=== PATIENT | male | born 1930 | race Caucasian/White ===

== ENCOUNTER 2017-04-03 17:48 | Inpatient (IN) | payer MEDICARE, OTHER ==
[2017-04-03] MEDS ORDERED: Aspirin Low Dose CHEW TAB* 81 MG PO ONE (18:08)
[2017-04-03] MEDS ORDERED: Nitroglycerin TAB 0.4 MG* 0.4 MG TAB SL ONE (18:19)
[2017-04-03] MEDS ORDERED: Aspirin TAB* 325 MG PO ONE (18:19)
[2017-04-03] MEDS ORDERED: Aspirin Low Dose CHEW TAB* 81 MG ONE (18:22)
[2017-04-03 18:48] LABS: ABS Basophils 0 10^3/ul (0-0.2); ABS Eosinophils 0.1 10^3/ul (0-0.6); ABS Lymphocytes 0.6 10^3/ul (1.0-4.8); ABS Monocytes 0.9 10^3/ul (0-0.8); ABS Neutrophils 4.1 10^3/ul (1.5-7.7); ABS Nucleated RBC 0 10^3/ul; Hematocrit 33 % (42-52); Lymphocyte % 11.3 % (25-47); Mean Corpuscular HGB Conc 33 g/dl (31-36); Mean Corpuscular Hemoglobin 31 pg (27-31); Mean Corpuscular Volume 94 fL (80-94); Mean Platelet Volume 8 um3 (7.4-10.4); Nucleated Red Blood Cells % 0; Platelet Count 226 10^3/ul (150-450); Red Blood Count 3.54 10^6/ul (4.0-5.4); Red Cell Distribution Width 18 % (10.5-15); White Blood Count 5.7 10^3/ul (3.5-10.8)
--- NOTE | 2017-04-03 18:56 | RAD ---
INDICATION: Chest pain COMPARISON: Chest x-ray March 09, 2016 TECHNIQUE: An AP portable view obtained at 1841 hours is submitted. FINDINGS: Bones/Soft Tissues: There are no acute bony findings. Cardiomediastinal: The cardiomediastinal silhouette is normal. Lungs: There are no infiltrates. Pleura: There are no pleural effusions. Other: None IMPRESSION: NO ACTIVE DISEASE.
[2017-04-03] MEDS ORDERED: Iohexol 350* (CONTRAST) 500 ML MDV IV ONE (19:46)
[2017-04-03] MEDS ORDERED: Cephalexin CAP* 500 MG PO ONE (19:49)
[2017-04-03] MEDS ORDERED: Sulfamethox/Trimethoprim DS 800/160* TAB PO ONE (19:49)
--- NOTE | 2017-04-03 20:17 | RAD ---
INDICATION: Chest pain. Short of breath. Evaluate for pulmonary embolus. COMPARISON: Chest x-ray same date CT abdomen pelvis March 09, 2016.; CTA chest/abdomen/pelvis October 24, 2009 TECHNIQUE: Axial source images were obtained from the thoracic inlet to the hemidiaphragms following administration of [address] angiographic technique was utilized. Coronal and sagittal reconstructed images were acquired. CHEST FINDINGS: Neck/thyroid: The visualized neck to include the thyroid appear normal. Chest wall: There are no acute abnormalities of the bony thorax or chest wall. There are old left 10th rib fractures. There are spondylitic changes of the thoracic spine with thoracic spine straightening. There is deformity of the lumbar spine with focal kyphosis represent a previously documented finding. There is no supraclavicular, infraclavicular, or axillary lymphadenopathy. Lungs : There are no pulmonary parenchymal masses or infiltrates. The pulmonary interstitium appears normal. There are no endobronchial lesions. Cardiomediastinal structures: There is no CT evidence of acute pulmonary embolic disease. The heart is normal in size. There is no pericardial effusion. There is no evidence of aortic aneurysm or dissection. There is no mediastinal or hilar adenopathy. The esophagus appears normal. Pleura : There are no pleural-based masses or effusions. Other: There are multiple gallstones. This represents a known finding. IMPRESSION: NO CT EVIDENCE OF ACUTE PULMONARY EMBOLIC DISEASE. LUNGS CLEAR. CHOLELITHIASIS.
[2017-04-03] MEDS ORDERED: Zolpidem TAB* 5 MG PO PRN (20:29)
[2017-04-03] MEDS ORDERED: clonazePAM TAB(*) 0.5 MG PO PRN (20:29)
[2017-04-03] MEDS ORDERED: Senna TAB PO PRN (20:29)
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
[2017-04-03] MEDS: Heparin VIAL(*) 5000 UNITS/ML VIAL (FIVE THOUSAND) SUBCUT SCH (22:56)
[2017-04-03] MEDS: Senna TAB PO SCH (22:56)
[2017-04-03] MEDS: Docusate CAP* 100 MG PO SCH (22:56)
[2017-04-03 23:04] LABS: Urine Appearance Clear; Urine Blood Negative (Negative); Urine Color Straw; Urine Ketones Negative (Negative); Urine Protein Negative (Negative); Urine Specific Gravity 1.016 (1.010-1.030); Urine Urobilinogen Negative (Negative)
[2017-04-03] MEDS: Psyllium PAK PO SCH (23:25)
[2017-04-03] MEDS: HYDROcodone/ACETAMIN 5-325 MG* 1 TAB PO PRN (23:25)
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
[2017-04-04] MEDS ORDERED: Zolpidem TAB* 5 MG PO ONE (02:10)
[2017-04-04] MEDS ORDERED: Morphine INJ* 4 MG/ML 1 ML CARPUJECT IV ONE (02:12)
[2017-04-04] MEDS: HYDROcodone/ACETAMIN 5-325 MG* 1 TAB PO PRN ×3 (03:46→20:51)
[2017-04-04] MEDS: Heparin VIAL(*) 5000 UNITS/ML VIAL (FIVE THOUSAND) SUBCUT SCH ×3 (06:44→20:52)
[2017-04-04] MEDS: Aspirin EC Low Dose* 81 MG TAB.EC PO SCH (08:03)
[2017-04-04] MEDS: Docusate CAP* 100 MG PO SCH ×2 (08:03→20:51)
[2017-04-04] MEDS: Psyllium PAK PO SCH ×2 (08:04→20:51)
[2017-04-04] MEDS: Atorvastatin* 10 MG TAB PO SCH (08:04)
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
[2017-04-04] MEDS ORDERED: Zolpidem TAB* 10 MG PO PRN (13:53)
[2017-04-04] MEDS: Morphine INJ* 4 MG/ML 1 ML CARPUJECT IV PRN ×2 (14:46→22:22)
[2017-04-04] MEDS: Senna TAB PO SCH (20:52)
[2017-04-05] MEDS: Morphine INJ* 4 MG/ML 1 ML CARPUJECT IV PRN (04:38)
[2017-04-05] MEDS: Heparin VIAL(*) 5000 UNITS/ML VIAL (FIVE THOUSAND) SUBCUT SCH (05:49)
--- NOTE | 2017-04-05 07:18 | DS ---
CC: Dr. Alis Lema * DISCHARGE SUMMARY: DATE OF ADMISSION: 04/03/17 DATE OF DISCHARGE: 04/05/17 ATTENDING PHYSICIAN: Dr. Scarlett Lawrence* (dictated by Mikayla Nesbitt NP) PRIMARY CARE PROVIDER: Alis Lema MD PRIMARY DIAGNOSES: 1. Left upper quadrant abdominal pain, suspect secondary to subacute left 10th rib fracture. 2. Stage II pressure injury to the right buttock. SECONDARY DIAGNOSES: 1. History of coronary artery disease. 2. Chronic constipation. 3. Neuropathic pain. 4. Gastroesophageal reflux disease. STUDIES WHILE IN THE HOSPITAL: 1. Chest x-ray from 04/03/17, radiologist's impression: No active disease. 2. CTA from 04/03/17. Radiologist's impression: No CT evidence for acute pulmonary embolic disease. Lungs clear. Cholelithiasis. MEDICATIONS: Continued home medications: 1. Metamucil 1 capsule oral twice daily. 2. Senna 1 tablet oral daily at bedtime. 3. Colace 100 mg oral twice daily. 4. Aspirin 162 mg oral daily. 5. Hydrocodone/acetaminophen 10/325 one to two tablets oral twice daily as needed for pain. 6. Ambien 5 to 10 mg oral daily at bedtime as needed for sleep. 7. Clonazepam 0.5 mg oral twice daily as needed for pain. 8. Omeprazole 20 mg oral every other day. 9. Atorvastatin 5 mg oral daily. 10. Senna 1 tablet oral daily as needed for constipation. 11. Vitamin B12 100 mcg oral daily. 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 While in the emergency room, he had a chest x-ray showing no active disease in addition to CTA of his chest showing 10th left rib fracture and no other findings besides cholelithiasis. The patient had negative troponins. The patient had a SHANDA score of 2. But due to his history, the hospitalists were asked to evaluate the patient for admission. While in the hospital, the patient continued to have his troponins trended, they remained flat. He continued to intermittently have some left-sided discomfort that is suspected to be secondary to his 10th left rib fracture. Unfortunately, during his stay, he has developed worsening sciatic pain and was requiring IV morphine. It was felt best to give him 1 more day with plans to discharge him tomorrow once we made sure his pain was better controlled. It is also to note he was noted to have a right buttock stage II pressure injury with no foul smell, no drainage with what appears to be peeling skin around the wound. The patient has been encouraged to turn in position as he has poor sensation due to his previous spinal fracture. Dr. Bagley will be stable for discharge to home in the morning of 04/05/17. Vital signs are as follows: At the time of dictation, 98.3, heart rate 83, respiratory rate 16, O2 sat 100% on room air, blood pressure 126/71. 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 ACTIVITY: As tolerated. DIET: He will be on a heart healthy diet. As far as his stage II pressure injury to his right buttock, he has been encouraged to change position and use a barrier cream to the area and to keep it as clean and dry as possible. It does not look infected at this time and I do not feel that it needs any further antibiotics than what he had received while in the emergency room. As far as the patient's left upper quadrant pain, I suspect this is secondary to his subacute left 10th rib fracture. He will continue pain medications as he has at home. The patient has been asked to call Dr. Lema's office on Thursday to set up a followup appointment to be seen in the next week, especially for followup to make sure that his pressure ulcer is healing well. The patient has been asked to return to the emergency room for any chest pain, shortness of breath. This is a summarized report of a complex medical history and hospital stay. For further details, please see the entire medical record. TIME SPENT: Time for this discharge was approximately 50 minutes, greater than half of that was spent with the patient discussing discharge plans and instructions. CONDITION ON DISCHARGE: Stable. MIKAYLA SALAZAR, DELINEATOR [id number]/[facility] #: [id number] [facility] FACILITYCayden
[2017-04-05 07:22] VITALS: BP 153/85
[2017-04-05] MEDS ORDERED: Omeprazole CAP* 20 MG PO SCH (09:00)
[2017-04-05] MEDS: Docusate CAP* 100 MG PO SCH (09:16)
[2017-04-05] MEDS: Psyllium PAK PO SCH (09:16)
[2017-04-05] MEDS: Aspirin EC Low Dose* 81 MG TAB.EC PO SCH (09:16)
[2017-04-05] MEDS: Atorvastatin* 10 MG TAB PO SCH (09:16)
--- NOTE | 2017-04-05 10:37 | DCNOTE ---
Subjective Date of Service: 04/05/17 Interval History: Patient seen and examined at bedside. Reports improvement in pain. Dr. Bagley still expresses concern over his right buttock ulcer and states, "It never really gets better." He cannot see or feel back there; we discussed that he likely continues to reopen the wound secondary to pressure and shearing. Patient is willing to try protective dressing and plan for VNS referral for dressing changes and monitoring of wound. Denies other acute concerns, including fever/chills, SOB, n/v. Family History: Unchanged from Admission Social History: Unchanged from Admission Past Medical History: Unchanged from Admission Objective Active Medications: Hydrocodone Bitart/Acetaminophen (Tama 5-325 Tab*) 2 tab PO Q4H PRN PRN Reason: PAIN Last Admin: 04/04/17 20:51 Dose: 2 tab Aspirin (Aspirin Ec Low Dose*) 162 mg PO DAILY [facility] Last Admin: 04/05/17 09:16 Dose: 162 mg Atorvastatin Calcium (Lipitor*) 5 mg PO DAILY [facility] Last Admin: 04/05/17 09:16 Dose: 5 mg Clonazepam (Klonopin Tab(*)) 0.5 mg PO BID PRN PRN Reason: PAIN Docusate Sodium (Colace Cap*) 100 mg PO BID [facility] Last Admin: 04/05/17 09:16 Dose: 100 mg Heparin Sodium (Porcine) (Heparin Vial(*)) 5,000 units SUBCUT Q8HR [facility] Last Admin: 04/05/17 05:49 Dose: 5,000 units Morphine Sulfate (Morphine Inj (Syringe)*) 4 mg IV Q6H PRN PRN Reason: PAIN Last Admin: 04/05/17 04:38 Dose: 4 mg Omeprazole (Prilosec Cap*) 20 mg PO EVERY OTHER DAY [facility] Last Admin: 04/05/17 09:16 Dose: 20 mg Psyllium Hydrophilic Mucilloid (Metamucil Rob*) 1 pkt PO BID [facility] Last Admin: 04/05/17 09:16 Dose: 1 pkt Senna (Senokot Tab*) 1 tab PO BEDTIME [facility] Last Admin: 04/04/17 20:52 Dose: 1 tab Senna (Senokot Tab*) 1 tab PO DAILY PRN PRN Reason: CONSTIPATION Zolpidem Tartrate (Ambien Tab*) 10 mg PO BEDTIME PRN PRN Reason: SLEEP Last Admin: 04/04/17 22:32 Dose: 10 mg Vital Signs - 8 hr 04/05/17 04/05/17 04/05/17 03:51 04:37 04:38 Temperature 98.0 F Pulse Rate 78 Respiratory 20 17 18 Rate Blood Pressure 128/72 (mmHg) O2 Sat by Pulse 100 Oximetry 04/05/17 04/05/17 04/05/17 05:54 07:12 07:22 Temperature 97.9 F Pulse Rate 71 Respiratory 16 16 16 Rate Blood Pressure 153/85 (mmHg) O2 Sat by Pulse 100 Oximetry Oxygen Devices in Use Now: None Appearance: Elderly male, sitting up in bed, NAD Eyes: No Scleral Icterus Ears/Nose/Mouth/Throat: Clear Oropharnyx, Mucous Membranes Moist Neck: NL Appearance and Movements; NL JVP Respiratory: Symmetrical Chest Expansion and Respiratory Effort, Clear to Auscultation Cardiovascular: NL Sounds; No Murmurs; No JVD, RRR, No Edema Abdominal: NL Sounds; No Tenderness; No Distention Extremities: No Clubbing, Cyanosis Skin: - - right buttock stage 2 pressure ulcer Neurological: Alert and Oriented x 3, NL Muscle Strength and Tone Lines/Tubes/Other Access: Clean, Dry and Intact Peripheral IV Nutrition: Taking PO's Result Diagrams: 04/03/17 18:29 04/03/17 18:29 Diagnostic Imaging: Right Buttock Pressure Ulcer 04/04/2017 Assess/Plan/Problems-Billing Assessment: 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 - Patient Problems (1) Chest pain Code(s): R07.9 - CHEST PAIN, UNSPECIFIED Comment: - Pain is actually located at the left upper quadrant, near the 10th rib - Suspect this is secondary to a 10th rib fracture as a result of a fall a few weeks ago - Troponin 0.01, 0.01, 0.02 - Lipids WNL (2) Stage II pressure ulcer of buttock Code(s): L89.302 - PRESSURE ULCER OF UNSPECIFIED BUTTOCK, STAGE 2 Comment: - Suspect secondary to mositure and poor sensation d/t hx spinal fx - Turn and position - Continue protective cream if dressing not in place - Will trial protective dressing and have case management consult VNS for wound monitoring in order to promote better healing (3) CAD (coronary artery disease) Code(s): I25.10 - ATHSCL HEART DISEASE OF [place] CORONARY ARTERY W/O ANG PCTRS Comment: - Continue ASA and statin (4) GERD (gastroesophageal reflux disease) Code(s): K21.9 - GASTRO-ESOPHAGEAL REFLUX DISEASE WITHOUT ESOPHAGITIS Comment : - Continue omeprazole. (5) Neuropathic pain Comment: - Pain is improved. - Continue home clonazepam and PRN Tama (6) DVT prophylaxis Comment: SQ heparin (7) DNR (do not resuscitate) Status and Disposition: Inpatient. Discharge to home.
== END 2017-04-05 13:00 | disposition home or self-care (01) | DRG 206 ==
LOC: ED 17:48 → MEDTELE 20:28 → OBSVTOIN 04-04 15:45
PROVIDERS: ADMIT Hospitalist; ATTEND Internal Medicine
DX: S22.32XA Fracture of one rib, left side, initial encounter for closed fracture (principal); L89.312 Pressure ulcer of right buttock, stage 2; G62.9 Polyneuropathy, unspecified; G31.89 Other specified degenerative diseases of nervous system; N31.9 Neuromuscular dysfunction of bladder, unspecified; M48.02 Spinal stenosis, cervical region; W19.XXXA Unspecified fall, initial encounter; Y92.009 Unspecified place in unspecified non-institutional (private) residence as the place of occurrence of the external cause; I25.10 Atherosclerotic heart disease of native coronary artery without angina pectoris; K59.09 Other constipation; K21.9 Gastro-esophageal reflux disease without esophagitis; R19.8 Other specified symptoms and signs involving the digestive system and abdomen; D50.9 Iron deficiency anemia, unspecified; D51.0 Vitamin B12 deficiency anemia due to intrinsic factor deficiency; Z85.46 Personal history of malignant neoplasm of prostate; Z66 Do not resuscitate; Z79.1 Long term (current) use of non-steroidal anti-inflammatories (NSAID); Z79.82 Long term (current) use of aspirin; Z79.899 Other long term (current) drug therapy; Z88.1 Allergy status to other antibiotic agents; Z88.8 Allergy status to other drugs, medicaments and biological substances; Z91.048 Other nonmedicinal substance allergy status; Z80.42 Family history of malignant neoplasm of prostate; Z82.3 Family history of stroke; Z82.49 Family history of ischemic heart disease and other diseases of the circulatory system; Z87.891 Personal history of nicotine dependence; R07.9 Chest pain, unspecified; Z95.5 Presence of coronary angioplasty implant and graft
CPT/HCPCS: 36415; 71045; 71275; 80053; 80061; 81003; 83605; 83690; 84484; 85025; 93005; A9270-GY; J1644; J2270; Q9967

== ENCOUNTER 2017-05-20 17:58 | Inpatient (IN) | payer MEDICARE, OTHER ==
[2017-05-20] MEDS ORDERED: NS 0.9% 1000 ML*IV.FLUID IV ONE (19:07)
--- NOTE | 2017-05-20 19:28 | RAD ---
INDICATION: Cough and weakness COMPARISON: Chest x-ray April 03, 2017 TECHNIQUE: An AP portable view obtained at 1919 hours is submitted. FINDINGS: Bones/Soft Tissues: There are no acute bony findings. Cardiomediastinal: The cardiomediastinal silhouette is normal. Lungs: There is new infiltrate in the medial right lung base. There is mild atelectasis or scarring left lung base with minor elevation the left hemidiaphragm. Pleura: No significant effusion. Other: None IMPRESSION: RIGHT BASAL INFILTRATE. SUGGEST FOLLOW-UP
[2017-05-20] MEDS ORDERED: Acetaminophen TAB* 325 MG PO ONE (19:34)
[2017-05-20 20:25] LABS: INR 1.12 (0.77-1.02)
[2017-05-20 20:30] LABS: EGFR Non-African American 59.4 (>60)
[2017-05-20] MEDS ORDERED: cefTRIAXone(*) 1 GM in NS 0.9% 50 ML* 50 ML IVPB ONE (20:51)
[2017-05-20 20:58] LABS: Hematocrit 31 % (42-52); Hemoglobin 10.2 g/dl (14.0-18.0); Mean Corpuscular HGB Conc 33 g/dl (31-36); Mean Corpuscular Hemoglobin 30 pg (27-31); Mean Corpuscular Volume 91 fL (80-94); Mean Platelet Volume 7 um3 (7.4-10.4); Platelet Count 477 10^3/ul (150-450); Red Blood Count 3.42 10^6/ul (4.0-5.4); Red Cell Distribution Width 19 % (10.5-15); White Blood Count 23.6 10^3/ul (3.5-10.8)
[2017-05-20] MEDS ORDERED: cefTRIAXone(*) 1 GM ADVAN/BAG ONE (21:03)
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
[2017-05-20 21:29] LABS: ABS Basophils 0.1 10^3/ul (0-0.2); ABS Eosinophils 0 10^3/ul (0-0.6); ABS Lymphocytes 0.6 10^3/ul (1.0-4.8); ABS Monocytes 2.1 10^3/ul (0-0.8); ABS Neutrophils 20.9 10^3/ul (1.5-7.7); ABS Nucleated RBC 0 10^3/ul; Eosinophil % 0 % (0-6); Lymphocyte % 2.3 % (25-47); Nucleated Red Blood Cells % 0
[2017-05-20] MEDS ORDERED: Albuterol 2.5 MG/3 ML NEB.SOL* (0.083%) INH PRN (22:42)
[2017-05-21] MEDS ORDERED: predniSONE TAB* 50 MG PO SCH (00:15)
[2017-05-21] MEDS: oxyCODONE TAB* 5 MG TAB PO PRN ×3 (00:44→20:51)
[2017-05-21] MEDS: Polyethylene Glycol 3350* 17 GM PACKET PO PRN ×2 (00:44→14:23)
[2017-05-21] MEDS: Levofloxacin 750 MG IVPREMIX(* 750 MG/150 ML BAG IVPB SCH (00:44)
[2017-05-21] MEDS: NS 0.9% 1000 ML* 1,000 ML IV SCH ×2 (00:45→16:01)
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
[2017-05-21] MEDS: Heparin VIAL(*) 5000 UNITS/ML VIAL (FIVE THOUSAND) SUBCUT SCH ×3 (06:04→20:52)
[2017-05-21 06:34] LABS: EGFR Non-African American 83.6 (>60)
[2017-05-21 06:55] LABS: Urine Appearance Cloudy; Urine Blood Negative (Negative); Urine Color Yellow; Urine Ketones Negative (Negative); Urine Protein 1+(30 mg/dL) (Negative); Urine Specific Gravity 1.027 (1.010-1.030); Urine Urobilinogen Negative (Negative)
[2017-05-21 07:24] LABS: Hematocrit 31 % (42-52); Hemoglobin 10.1 g/dl (14.0-18.0); Mean Corpuscular HGB Conc 33 g/dl (31-36); Mean Corpuscular Hemoglobin 30 pg (27-31); Mean Corpuscular Volume 90 fL (80-94); Red Blood Count 3.39 10^6/ul (4.0-5.4); Red Cell Distribution Width 19 % (10.5-15); White Blood Count 25.3 10^3/ul (3.5-10.8)
[2017-05-21 07:27] LABS: ABS Basophils 0 10^3/ul (0-0.2); ABS Eosinophils 0 10^3/ul (0-0.6); ABS Lymphocytes 0.2 10^3/ul (1.0-4.8); ABS Monocytes 0.5 10^3/ul (0-0.8); ABS Neutrophils 25.4 10^3/ul (1.5-7.7); ABS Nucleated RBC 0 10^3/ul; Eosinophil % 0 % (0-6); Lymphocyte % 0.9 % (25-47); Mean Platelet Volume 8 um3 (7.4-10.4); Nucleated Red Blood Cells % 0; Platelet Count 465 10^3/ul (150-450)
[2017-05-21] MEDS: clonazePAM TAB(*) 0.5 MG PO SCH ×3 (09:45→19:52)
[2017-05-21] MEDS: Acetaminophen TAB* 325 MG PO PRN ×3 (10:32→19:51)
[2017-05-21] MEDS: Docusate CAP* 100 MG PO SCH ×2 (10:32→19:52)
[2017-05-21] MEDS: Psyllium PAK PO SCH (10:33)
[2017-05-21] MEDS: Atorvastatin* 10 MG TAB PO SCH (10:33)
[2017-05-21] MEDS: Aspirin EC Low Dose* 81 MG TAB.EC PO SCH (10:33)
[2017-05-21] MEDS: guaiFENesin ER TAB 600 MG PO SCH ×2 (10:33→19:52)
--- NOTE | 2017-05-21 18:51 | PN ---
Subjective Date of Service: 05/21/17 Interval History: Patient seen and examined at bedside. Denies fever, chills, shortness of breath , chest discomfort, N/V/D. Pt states that he is feeling better today. Pt states that VNS has been caring for his pressure injury. NSG staff report low urine output, put he is also INC. urine, will continue to monitor. Verbal permission obtained from the patient to place a picture of his pressure injury in the chart. Family History: Unchanged from Admission Social History: Unchanged from Admission Past Medical History: Unchanged from Admission Objective Active Medications: Acetaminophen (Tylenol Tab*) 650 mg PO Q4H PRN Reason: FEVER/PAIN Albuterol (Ventolin 2.5 Mg/3 Ml Neb.Lisa*) 2.5 mg INH Q2H PRN Reason: SOB/ WHEEZING Aspirin (Aspirin Ec Low Dose*) 162 mg PO DAILY [facility] Atorvastatin Calcium (Lipitor*) 5 mg PO DAILY [facility] Clonazepam (Klonopin Tab(*)) 0.5 mg PO TID [facility] Docusate Sodium (Colace Cap*) 100 mg PO BID [facility] Guaifenesin (Mucinex*) 1,200 mg PO BID [facility] Heparin Sodium (Porcine) (Heparin Vial(*)) 5,000 units SUBCUT Q8HR [facility] Levofloxacin/Dextrose (Levaquin 750 Mg Ivpremix(*)) 750 mg in 150 mls @ 100 mls /hr IVPB Q48H [facility] Sodium Chloride (Ns 0.9% 1000 Ml*) 1,000 mls @ 125 mls/hr IV PER RATE [facility] Magnesium Hydroxide (Milk Of Magnesia Liq*) 30 ml PO BID PRN Reason: CONSTIPATION Omeprazole (Prilosec Cap*) 20 mg PO EVERY OTHER DAY [facility] Oxycodone HCl (Roxycodone Tab*) 10 mg PO Q4H PRN Reason: PAIN Polyethylene Glycol/Electrolytes (Miralax*) 17 gm PO DAILY PRN Reason: CONSTIPATION Psyllium Hydrophilic Mucilloid (Metamucil Rob*) 1 pkt PO DAILY [facility] Vital Signs - 8 hr 05/21/17 05/21/17 05/21/17 11:46 13:27 16:19 Temperature 97.6 F 98.5 F Pulse Rate 88 93 80 Respiratory 16 16 18 Rate Blood Pressure 102/51 101/55 (mmHg) O2 Sat by Pulse 98 95 100 Oximetry Oxygen Devices in Use Now: None Appearance: NAD, laying in bed Ears/Nose/Mouth/Throat: Mucous Membranes Moist Respiratory: Symmetrical Chest Expansion and Respiratory Effort, - - Right lower lobe with crackles Cardiovascular: NL Sounds; No Murmurs; No JVD, RRR Abdominal: NL Sounds; No Tenderness; No Distention Extremities: No Edema Skin: - - Stage 2-3 pressure injury to right buttocks, area surrounding is macerated. Skin is blanchable. Lower back also with an area of erythema that is blanchable Neurological: Alert and Oriented x 3 Lines/Tubes/Other Access: Clean, Dry and Intact Peripheral IV - site benign Nutrition: Taking PO's Result Diagrams: 05/21/17 05:48 05/21/17 05:48 Additional Lab and Data: Pressure injury to buttocks (right side of picture is towards Pt's head) Microbiology and Other Data: Microbiology 05/21/17 06:02 Legionella Urinary Antigen - Final Urine Negative Legionella Streptococcus pneumoniae Ag Screen - Final Negative S. 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 - Patient Problems (1) PNA (pneumonia) Code(s): J18.9 - PNEUMONIA, UNSPECIFIED ORGANISM SNOMED Code(s): 511489464 Comment: - Community acquired - Afebrile, continues to have leukocytosis - Urine antigens for legionella and S. pneum negative - Blood cultures, pending - Sputum culture, pending - Elevated CRP - Discontinue prednisone, Pt doesn't have wheezing - Continue Levaquin (renally dosed) (2) Weakness Code(s): R53.1 - WEAKNESS SNOMED Code(s): 83802067 Comment: - Suspect secondary to PNA - Pt reports frequent falls at home - Continue PT/OT (3) Physical deconditioning Code(s): R53.81 - OTHER MALAISE SNOMED Code(s): 18410166321494 Comment: - Suspect secondary to PNA - Continue PT/OT (4) Neurogenic bowel Code(s): K59.2 - NEUROGENIC BOWEL, NOT ELSEWHERE CLASSIFIED SNOMED Code(s): 390852707 Comment: - Continue fiber regimen, miralax, and MOM (5) Neurogenic bladder Code(s): N31.9 - NEUROMUSCULAR DYSFUNCTION OF BLADDER, UNSPECIFIED SNOMED Code (s): 950354180 Comment: - History of frequent UTIs - Urinary incontinence at times at baseline (6) History of prostate cancer Code(s): Z85.46 - PERSONAL HISTORY OF MALIGNANT NEOPLASM OF PROSTATE SNOMED Code(s): 999706000 Comment: - Not an active issue at this time - Continue to follow-up patient with urology/PCP (7) Anemia Code(s): D64.9 - ANEMIA, UNSPECIFIED SNOMED Code(s): 014989461 Comment: - Near baseline (8) Neuropathic pain Comment: - Chronic pain at baseline - Continue oxycodone PRN, tylenol PRN, and clonazepam (9) Stage III pressure ulcer of buttock Code(s): L89.303 - PRESSURE ULCER OF UNSPECIFIED BUTTOCK, STAGE 3 SNOMED Code( s): 29457403155885664 Comment: - Stage 1-3 to buttocks - Please see picture attached to this note - Wound care consult, pending - Continue to T+P frequently (10) CAD (coronary artery disease) Code(s): I25.10 - ATHSCL HEART DISEASE OF [place] CORONARY ARTERY W/O ANG PCTRS SNOMED Code(s): 71351823 Comment: - Continue ASA and statin (11) GERD (gastroesophageal reflux disease) Code(s): K21.9 - GASTRO-ESOPHAGEAL REFLUX DISEASE WITHOUT ESOPHAGITIS SNOMED Code(s): 057585496 Comment: - Continue omeprazole. (12) DVT prophylaxis Code(s): MDF1989 - SNOMED Code(s): 829208993 Comment: SQ heparin and SCDs (13) DNR (do not resuscitate) Status and Disposition: Inpatient. Discharge to home when medically stable, Pt lives in independent living at [place] and may need to move to a higher level of care.
[2017-05-21] MEDS ORDERED: Magnesium Sulfate IV* 3 GM in NS 0.9% 100 ML* 100 ML IVPB ONE (20:00)
[2017-05-21] MEDS ORDERED: Acetaminophen TAB* 325 MG PO SCH (20:30)
[2017-05-22] MEDS: Acetaminophen TAB* 325 MG PO PRN ×3 (02:42→15:50)
[2017-05-22] MEDS: NS 0.9% 1000 ML* 1,000 ML IV SCH ×2 (02:44→15:51)
[2017-05-22] MEDS: Magnesium Hydroxide LIQ* 30 ML UDC PO PRN (05:41)
[2017-05-22] MEDS: Heparin VIAL(*) 5000 UNITS/ML VIAL (FIVE THOUSAND) SUBCUT SCH ×3 (05:45→20:30)
[2017-05-22] MEDS: oxyCODONE TAB* 5 MG TAB PO PRN ×4 (05:51→20:30)
[2017-05-22 06:02] LABS: Hematocrit 30 % (42-52); Mean Corpuscular HGB Conc 33 g/dl (31-36); Mean Corpuscular Hemoglobin 30 pg (27-31); Mean Corpuscular Volume 90 fL (80-94); Mean Platelet Volume 7 um3 (7.4-10.4); Platelet Count 473 10^3/ul (150-450); Red Blood Count 3.38 10^6/ul (4.0-5.4); Red Cell Distribution Width 19 % (10.5-15); White Blood Count 21.7 10^3/ul (3.5-10.8)
[2017-05-22 06:03] LABS: ABS Basophils 0.1 10^3/ul (0-0.2); ABS Eosinophils 0 10^3/ul (0-0.6); ABS Lymphocytes 0.5 10^3/ul (1.0-4.8); ABS Monocytes 1.7 10^3/ul (0-0.8); ABS Neutrophils 19.4 10^3/ul (1.5-7.7); ABS Nucleated RBC 0 10^3/ul; Eosinophil % 0 % (0-6); Lymphocyte % 2.4 % (25-47); Nucleated Red Blood Cells % 0
[2017-05-22 06:15] LABS: EGFR Non-African American 111.1 (>60)
[2017-05-22] MEDS: Psyllium PAK PO SCH (09:00)
[2017-05-22] MEDS: Aspirin EC Low Dose* 81 MG TAB.EC PO SCH (09:01)
[2017-05-22] MEDS: Atorvastatin* 10 MG TAB PO SCH (09:01)
[2017-05-22] MEDS: guaiFENesin ER TAB 600 MG PO SCH ×2 (09:02→20:30)
[2017-05-22] MEDS: clonazePAM TAB(*) 0.5 MG PO SCH (09:02)
[2017-05-22] MEDS: Docusate CAP* 100 MG PO SCH ×2 (09:02→20:29)
[2017-05-22] MEDS: Omeprazole CAP* 20 MG PO SCH (09:02)
[2017-05-22] MEDS ORDERED: clonazePAM TAB(*) 0.5 MG PO PRN (10:33)
--- NOTE | 2017-05-22 10:34 | PN ---
Subjective Date of Service: 05/22/17 Interval History: Patient seen and examined at bedside. Denies fever, chills, shortness of breath , chest discomfort, N/V/D. Pt states that he continues to feel better. He reports some generalized weakness after getting up to the bathroom. Continues to have an occasional productive cough with "segura mucous". Family History: Unchanged from Admission Social History: Unchanged from Admission Past Medical History: Unchanged from Admission Objective Active Medications: Acetaminophen (Tylenol Tab*) 650 mg PO Q4H PRN Reason: FEVER/PAIN Albuterol (Ventolin 2.5 Mg/3 Ml Neb.Lisa*) 2.5 mg INH Q2H PRN Reason: SOB/ WHEEZING Aspirin (Aspirin Ec Low Dose*) 162 mg PO DAILY [facility] Atorvastatin Calcium (Lipitor*) 5 mg PO DAILY [facility] Clonazepam (Klonopin Tab(*)) 0.5 mg PO TID [facility] Docusate Sodium (Colace Cap*) 100 mg PO BID [facility] Guaifenesin (Mucinex*) 1,200 mg PO BID [facility] Heparin Sodium (Porcine) (Heparin Vial(*)) 5,000 units SUBCUT Q8HR [place] Levofloxacin/Dextrose (Levaquin 750 Mg Ivpremix(*)) 750 mg in 150 mls @ 100 mls /hr IVPB Q48H [place] Sodium Chloride (Ns 0.9% 1000 Ml*) 1,000 mls @ 125 mls/hr IV PER RATE [place] Magnesium Hydroxide (Milk Of Magnesia Liq*) 30 ml PO BID PRN Reason: CONSTIPATION Omeprazole (Prilosec Cap*) 20 mg PO EVERY OTHER DAY [facility] Oxycodone HCl (Roxycodone Tab*) 10 mg PO Q4H PRN Reason: PAIN Polyethylene Glycol/Electrolytes (Miralax*) 17 gm PO DAILY PRN Reason: CONSTIPATION Psyllium Hydrophilic Mucilloid (Metamucil Rob*) 1 pkt PO DAILY [facility] Vital Signs - 8 hr 05/22/17 05/22/17 05/22/17 03:23 04:08 04:25 Temperature 97.6 F Pulse Rate 77 77 77 Respiratory 16 16 Rate Blood Pressure 120/62 (mmHg) O2 Sat by Pulse 96 96 95 Oximetry 05/22/17 05/22/17 05/22/17 05:51 06:47 07:40 Temperature 97.4 F Pulse Rate 82 Respiratory 16 16 16 Rate Blood Pressure 135/63 (mmHg) O2 Sat by Pulse 93 Oximetry 05/22/17 05/22/17 07:50 08:42 Temperature Pulse Rate Respiratory 16 16 Rate Blood Pressure (mmHg) O2 Sat by Pulse Oximetry Oxygen Devices in Use Now: None Appearance: NAD, sitting up in bed Ears/Nose/Mouth/Throat: Mucous Membranes Moist Respiratory: Symmetrical Chest Expansion and Respiratory Effort, Clear to Auscultation - , with few crackles in the right LL Cardiovascular: NL Sounds; No Murmurs; No JVD, RRR Abdominal: NL Sounds; No Tenderness; No Distention Extremities: - - Mild bilateral ankle edema Skin: - - Stage 2-3 pressure ulcer to buttocks, redness to midline back that is blanchable Neurological: Alert and Oriented x 3, NL Muscle Strength and Tone Lines/Tubes/Other Access: Clean, Dry and Intact Peripheral IV - site benign Nutrition: Taking PO's Result Diagrams: 05/22/17 05:52 05/22/17 05:52 Additional Lab and Data: Pressure injury to buttocks (right side of picture is towards Pt's head) Microbiology and Other Data: Microbiology 05/21/17 06:02 Legionella Urinary Antigen - Final Urine Negative Legionella Streptococcus pneumoniae Ag Screen - Final Negative S. 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 - Patient Problems (1) PNA (pneumonia) Code(s): J18.9 - PNEUMONIA, UNSPECIFIED ORGANISM SNOMED Code(s): 379795936 Comment: - Community acquired - Afebrile, continues to have leukocytosis that is improving - Urine antigens for legionella and S. pneum negative - Blood cultures, no growth day 1 - Sputum culture, pending - Elevated CRP, but trending down - Continue Levaquin (renally dosed) (2) Weakness Code(s): R53.1 - WEAKNESS SNOMED Code(s): 94007574 Comment: - Suspect secondary to PNA - Pt reports frequent falls at home - Continue PT/OT (3) Physical deconditioning Code(s): R53.81 - OTHER MALAISE SNOMED Code(s): 80094668167199 Comment: - Suspect secondary to PNA - Continue PT/OT (4) Neurogenic bowel Code(s): K59.2 - NEUROGENIC BOWEL, NOT ELSEWHERE CLASSIFIED SNOMED Code(s): 524721770 Comment: - Continue fiber regimen, miralax, and MOM (5) Neurogenic bladder Code(s): N31.9 - NEUROMUSCULAR DYSFUNCTION OF BLADDER, UNSPECIFIED SNOMED Code (s): 385139033 Comment: - History of frequent UTIs - Urinary incontinence at times at baseline (6) History of prostate cancer Code(s): Z85.46 - PERSONAL HISTORY OF MALIGNANT NEOPLASM OF PROSTATE SNOMED Code(s): 571121387 Comment: - Not an active issue at this time - Continue to follow-up patient with urology/PCP (7) Anemia Code(s): D64.9 - ANEMIA, UNSPECIFIED SNOMED Code(s): 371511261 Comment: - Near baseline (8) Neuropathic pain Comment: - Chronic pain at baseline - Continue oxycodone PRN, tylenol PRN, and clonazepam PRN (9) Stage III pressure ulcer of buttock Code(s): L89.303 - PRESSURE ULCER OF UNSPECIFIED BUTTOCK, STAGE 3 SNOMED Code( s): 27133629985864454 Comment: - Stage 1-3 to buttocks (various degrees at different locations, Stage 1 back, stage 2 back, and stage 2-3 buttocks) - Please see picture attached to this note - Wound care consult, pending - Continue to T+P frequently (10) CAD (coronary artery disease) Code(s): I25.10 - ATHSCL HEART DISEASE OF [place] CORONARY ARTERY W/O ANG PCTRS SNOMED Code(s): 03415344 Comment: - Continue ASA and statin (11) GERD (gastroesophageal reflux disease) Code(s): K21.9 - GASTRO-ESOPHAGEAL REFLUX DISEASE WITHOUT ESOPHAGITIS SNOMED Code(s): 989251292 Comment: - Continue omeprazole. (12) DVT prophylaxis Code(s): IXV9963 - SNOMED Code(s): 447044715 Comment: SQ heparin and SCDs (13) DNR (do not resuscitate) Status and Disposition: Inpatient. Discharge when medically stable, Pt lives in independent living at [place] and may need to move to a higher level of care vs [facility].
[2017-05-22] MEDS ORDERED: oxyCODONE TAB* 5 MG TAB PO ONE (14:13)
--- NOTE | 2017-05-22 15:33 | RAD ---
Indication: Assess for osteomyelitis at the sacrum. Comparison: March 09, 2016 CT. Technique: Multiplanar multisequence MRI of the sacrum performed without contrast. [employer] 1.5 [place] [id number] with GEM suite. Report: There are bilateral sagittal oriented sacral ala insufficiency fractures without displacement. In addition there is a horizontal sacral insufficiency fracture at the superior aspect of the S2 vertebral body. In addition to the low signal fracture planes on T1 there is mild increased T2 signal typical for fractures with surrounding marrow edema. Negative for compelling stigmata of osteomyelitis. No significant periosseous hematoma evident within the [id number]. Advanced degenerative spondylosis and facet joint osteoarthritis at the L4-L5 and L5-S1 levels with mild associated acquired central canal stenosis at both levels. Foraminal stenosis appears advanced bilaterally at L4-L5 and moderate bilaterally at L5-S1. Trace free pelvic fluid noted. IMPRESSION: H-type sacral insufficiency fracture without displacement. No compelling evidence for osteomyelitis.
[2017-05-22] MEDS: Morphine INJ* 2 MG/ML 1 ML CARPUJECT IV PRN ×2 (16:17→20:30)
[2017-05-22] MEDS: Polyethylene Glycol 3350* 17 GM PACKET PO PRN (22:09)
[2017-05-22] MEDS ORDERED: Zolpidem TAB* 5 MG PO PRN (22:40)
[2017-05-22] MEDS: Gabapentin CAP(*) 100 MG PO SCH (23:08)
[2017-05-22] MEDS: Levofloxacin 750 MG IVPREMIX(* 750 MG/150 ML BAG IVPB SCH (23:10)
[2017-05-23] MEDS: oxyCODONE TAB* 5 MG TAB PO PRN ×5 (00:38→20:52)
[2017-05-23] MEDS: Morphine INJ* 2 MG/ML 1 ML CARPUJECT IV PRN ×3 (00:40→08:45)
[2017-05-23] MEDS: NS 0.9% 1000 ML* 1,000 ML IV SCH (04:16)
[2017-05-23 05:44] LABS: Hematocrit 30 % (42-52); Hemoglobin 9.9 g/dl (14.0-18.0); Mean Corpuscular HGB Conc 33 g/dl (31-36); Mean Corpuscular Hemoglobin 30 pg (27-31); Mean Corpuscular Volume 91 fL (80-94); Mean Platelet Volume 8 um3 (7.4-10.4); Platelet Count 469 10^3/ul (150-450); Red Blood Count 3.35 10^6/ul (4.0-5.4); Red Cell Distribution Width 19 % (10.5-15); White Blood Count 19.7 10^3/ul (3.5-10.8)
[2017-05-23 05:54] LABS: ABS Basophils 0 10^3/ul (0-0.2); ABS Eosinophils 0 10^3/ul (0-0.6); ABS Lymphocytes 0.7 10^3/ul (1.0-4.8); ABS Monocytes 2.3 10^3/ul (0-0.8); ABS Neutrophils 16.6 10^3/ul (1.5-7.7); ABS Nucleated RBC 0 10^3/ul; Eosinophil % 0.1 % (0-6); Lymphocyte % 3.4 % (25-47); Nucleated Red Blood Cells % 0
[2017-05-23] MEDS: Heparin VIAL(*) 5000 UNITS/ML VIAL (FIVE THOUSAND) SUBCUT SCH ×2 (06:06→14:04)
[2017-05-23] MEDS: Psyllium PAK PO SCH (08:40)
[2017-05-23] MEDS: Aspirin EC Low Dose* 81 MG TAB.EC PO SCH (08:41)
[2017-05-23] MEDS: guaiFENesin ER TAB 600 MG PO SCH ×2 (08:42→20:52)
[2017-05-23] MEDS: Docusate CAP* 100 MG PO SCH ×2 (08:42→20:52)
[2017-05-23] MEDS: Gabapentin CAP(*) 100 MG PO SCH ×3 (08:42→20:51)
[2017-05-23] MEDS: Atorvastatin* 10 MG TAB PO SCH (08:43)
--- NOTE | 2017-05-23 13:58 | PN ---
"Progress Note - Progress Note Date of Service: 05/23/17 Note: This report was requested by: Lamont Ching | Reference #: [id number] Others' Prescriptions Patient Name: Abraham Bagley Date: 1930 Address: [address] [place], [place] [address] [facility] [place] [address] Sex: Male Rx Written Rx Dispensed Drug Quantity Days Supply Prescriber Name 04/21/2017 05/18/2017 zolpidem tartrate 10 mg tablet 30 30 JanAlis arguello MD 05/16/2017 05/18/2017 hydrocodone-acetaminophen 10-325 mg tablet 120 30 Jander Alis MD 04/21/2017 04/22/2017 zolpidem tartrate 10 mg tablet 30 30 JanderAlis MD 04/15/2017 04/16/2017 hydrocodone-acetaminophen 10-325 mg tablet 120 30 Danielle De La Torre MD 02/16/2017 03/17/2017 zolpidem tartrate 10 mg tablet 30 30 Abby Redding (MSN) 03/17/2017 03/17/2017 hydrocodone-acetaminophen 10-325 mg tablet 120 30 Abby Redding (MSN) 02/11/2017 02/16/2017 clonazepam 0.5 mg tablet 90 30 Abby Redding (MSN) 02/16/2017 02/16/2017 hydrocodone-acetaminophen 10-325 mg tablet 120 30 Abby Redding (MSN) 02/16/2017 02/16/2017 zolpidem tartrate 10 mg tablet 30 30 Abby Redding (MSN) 01/13/2017 01/16/2017 hydrocodone-acetaminophen 10-325 mg tablet 120 30 Alis Lema MD 01/13/2017 01/14/2017 clonazepam 0.5 mg tablet 90 30 JanAlis arguello MD 08/12/2016 01/13/2017 zolpidem tartrate 10 mg tablet 30 30 JanAlis arguello MD 08/12/2016 12/18/2016 zolpidem tartrate 10 mg tablet 30 30 JanAlis arguello MD 12/15/2016 12/18/2016 hydrocodone-acetaminophen 10-325 mg tablet 120 30 Alis Lema MD 11/18/2016 11/18/2016 clonazepam 0.5 mg tablet 90 30 Jander, Alis BURROUGHS 11/14/2016 11/17/2016 hydrocodone-acetaminophen 10-325 mg tablet 120 30 Jander , Alis BURROUGHS 08/12/2016 11/14/2016 zolpidem tartrate 10 mg tablet 30 30 Jander, Alis BURROUGHS 08/12/2016 10/17/2016 zolpidem tartrate 10 mg tablet 30 30 Jander, Alis BURROUGHS 10/16/2016 10/17/2016 hydrocodone-acetaminophen 10-325 mg tablet 120 30 Jander , Alis BURROUGHS 08/12/2016 09/17/2016 zolpidem tartrate 10 mg tablet 30 30 Jander, Alis BURROUGHS 09/17/2016 09/17/2016 hydrocodone-acetaminophen 10-325 mg tablet 120 30 Jander , Alis BURROUGHS 09/17/2016 09/17/2016 clonazepam 0.5 mg tablet 90 30 Jander, Alis BURROUGHS 08/12/2016 08/13/2016 hydrocodone-acetaminophen 10-325 mg tablet 120 30 Jander , Alis BURROUGHS 08/12/2016 08/13/2016 zolpidem tartrate 10 mg tablet 30 30 Jander, Alis BURROUGHS 08/12/2016 08/13/2016 clonazepam 0.5 mg tablet 90 30 Marder, Alis BURROUGHS Patient Name: Abraham Bagley Date: 1930 Address: [address] [place] [address] [place] [address] Sex: Male Rx Written Rx Dispensed Drug Quantity Days Supply Prescriber Name 04/17/2016 07/15/2016 zolpidem tartrate 10 mg tablet 30 30 CardiStanley gil MD 07/14/2016 07/15/2016 hydrocodone-acetaminophen 10-325 mg tablet 120 30 Dannielle Thorne [employer] 04/17/2016 06/17/2016 zolpidem tartrate 10 mg tablet 30 30 CardiStanley gil MD 06/16/2016 06/17/2016 clonazepam 0.5 mg tablet 90 30 CardinaStanley MD 06/16/2016 06/17/2016 hydrocodone-acetaminophen 10-325 mg tablet 120 30 CardiStanley gil MD"
--- NOTE | 2017-05-23 14:10 | PN ---
Subjective Date of Service: 05/23/17 Interval History: Cough much improved. Pt prefers the hydrocodone/APAP he has taken at home for the past 4 years. Pain is in the L buttock area, radiates down his leg. Family History: Unchanged from Admission Social History: Unchanged from Admission Past Medical History: Unchanged from Admission Objective Active Medications: Hydrocodone Bitart/Acetaminophen ([place] 10/325 (Nf)) 1 tab PO Q4H PRN PRN Reason: PAIN Albuterol (Ventolin 2.5 Mg/3 Ml Neb.Lisa*) 2.5 mg INH Q2H PRN PRN Reason: SOB/WHEEZING Aspirin (Aspirin Ec Low Dose*) 162 mg PO DAILY [facility] Last Admin: 05/23/17 08:41 Dose: 162 mg Atorvastatin Calcium (Lipitor*) 5 mg PO DAILY [facility] Last Admin: 05/23/17 08:43 Dose: 5 mg Clonazepam (Klonopin Tab(*)) 0.5 mg PO TID PRN PRN Reason: ANXIETY Docusate Sodium (Colace Cap*) 100 mg PO BID [facility] Last Admin: 05/23/17 08:42 Dose: 100 mg Gabapentin (Neurontin Cap(*)) 200 mg PO TID [facility] Last Admin: 05/23/17 08:42 Dose: 200 mg Guaifenesin (Mucinex*) 600 mg PO BID [facility] Heparin Sodium (Porcine) (Heparin Vial(*)) 5,000 units SUBCUT Q8HR [facility] Last Admin: 05/23/17 06:06 Dose: 5,000 units Levofloxacin (Levaquin Tab*) 750 mg PO Q48H [facility] Magnesium Hydroxide (Milk Of Magnesia Liq*) 30 ml PO BID PRN PRN Reason: CONSTIPATION Last Admin: 05/22/17 05:41 Dose: 30 ml Omeprazole (Prilosec Cap*) 20 mg PO EVERY OTHER DAY [facility] Last Admin: 05/22/17 09:02 Dose: 20 mg Oxycodone HCl (Roxycodone Tab*) 10 mg PO Q4H PRN PRN Reason: PAIN Last Admin: 05/23/17 08:44 Dose: 10 mg Polyethylene Glycol/Electrolytes (Miralax*) 17 gm PO DAILY PRN PRN Reason: CONSTIPATION Last Admin: 05/22/17 22:09 Dose: 17 gm Psyllium Hydrophilic Mucilloid (Metamucil Rob*) 1 pkt PO DAILY [facility] Last Admin: 05/23/17 08:40 Dose: 1 pkt Zolpidem Tartrate (Ambien Tab*) 5 mg PO BEDTIME PRN PRN Reason: INSOMNIA Last Admin: 05/22/17 23:08 Dose: 5 mg Vital Signs - 8 hr 05/23/17 05/23/17 05/23/17 06:08 07:10 07:42 Temperature 98.1 F Pulse Rate 89 Respiratory 16 16 18 Rate Blood Pressure 124/47 (mmHg) O2 Sat by Pulse 91 Oximetry 05/23/17 05/23/17 05/23/17 08:00 08:42 08:44 Temperature Pulse Rate Respiratory 18 20 20 Rate Blood Pressure (mmHg) O2 Sat by Pulse Oximetry 05/23/17 05/23/17 05/23/17 08:45 11:20 11:59 Temperature 98.4 F Pulse Rate 80 90 Respiratory 22 14 20 Rate Blood Pressure 141/62 (mmHg) O2 Sat by Pulse 93 92 Oximetry Oxygen Devices in Use Now: None Appearance: Alert, in a chair. In good spirits. Looks comfortable until he gets a leg spasm. Eyes: No Scleral Icterus Neck: NL Appearance and Movements; NL JVP, No Thyroid Enlargement, Masses Respiratory: Symmetrical Chest Expansion and Respiratory Effort, Clear to Auscultation, Clear to Percussion Cardiovascular: NL Sounds; No Murmurs; No JVD, RRR, No Edema, - Extremities: No Edema, No Clubbing, Cyanosis, - Skin: No Nodules or Sclerosis, - - bandage over lower thoracic spine. Sacral ulcer not inspected. Neurological: Alert and Oriented x 3, NL Sensation Result Diagrams: 05/23/17 04:42 05/22/17 05:52 Additional Lab and Data: Pressure injury to buttocks (right side of picture is towards Pt's head) Microbiology and Other Data: Microbiology 05/21/17 06:02 Legionella Urinary Antigen - Final Urine Negative Legionella Streptococcus pneumoniae Ag Screen - Final Negative S. 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 - Patient Problems (1) PNA (pneumonia) Current Visit: Yes Status: Acute Code(s): J18.9 - PNEUMONIA, UNSPECIFIED ORGANISM SNOMED Code(s): 922058101 Comment: - Community acquired - Afebrile, continues to have leukocytosis that is improving - Urine antigens for legionella and S. pneum negative - Blood cultures, no growth day 1 - Sputum culture, pending - Elevated CRP, but trending down - Change to oral Levaquin (renally dosed) /. (2) Neurogenic bowel Current Visit: No Status: Chronic Code(s): K59.2 - NEUROGENIC BOWEL, NOT ELSEWHERE CLASSIFIED SNOMED Code(s): 297695183 Comment: - Continue fiber regimen, miralax, and MOM (3) Stage III pressure ulcer of buttock Current Visit: No Status: Chronic Code(s): L89.303 - PRESSURE ULCER OF UNSPECIFIED BUTTOCK, STAGE 3 SNOMED Code(s): 03495099938419799 Comment: - Stage 1-3 to buttocks (various degrees at different locations, Stage 1 back, stage 2 back, and stage 2-3 buttocks) - Wound care consult appreciated, see Notes section. - Continue to T+P frequently (4) Insufficiency fracture of pelvis Current Visit: Yes Status: Acute Code(s): M84.454A - PATHOLOGICAL FRACTURE, PELVIS, INIT ENCNTR FOR FRACTURE SNOMED Code(s): 130085529 Comment: Vitamin D level add on. Hydrocodone/APAP 10/325 q 4 hr PRN. PT/OT , PMRU eval. (5) Anemia Current Visit: No Status: Chronic Code(s): D64.9 - ANEMIA, UNSPECIFIED SNOMED Code(s): 500301914 Comment: Small change since 05/2016. (6) GERD (gastroesophageal reflux disease) Current Visit: No Status: Chronic Code(s): K21.9 - GASTRO-ESOPHAGEAL REFLUX DISEASE WITHOUT ESOPHAGITIS SNOMED Code(s): 246547377 Comment: - Continue omeprazole. (7) CAD (coronary artery disease) Current Visit: No Status: Chronic Code(s): I25.10 - ATHSCL HEART DISEASE OF [place] CORONARY ARTERY W/O ANG PCTRS SNOMED Code(s): 60216401 Comment: - Continue ASA and statin Status and Disposition: Inpatient. Discharge when medically stable, Pt lives in independent living at [place] and may need to move to a higher level of care vs [facility].
[2017-05-23] MEDS: Polyethylene Glycol 3350* 17 GM PACKET PO PRN (20:52)
[2017-05-24] MEDS: oxyCODONE TAB* 5 MG TAB PO PRN ×3 (03:14→18:45)
[2017-05-24] MEDS: Hydrocodone/Acetamin 10/325 1 TAB PO PRN ×4 (05:50→20:31)
[2017-05-24] MEDS: Heparin VIAL(*) 5000 UNITS/ML VIAL (FIVE THOUSAND) SUBCUT SCH ×4 (07:14→22:03)
[2017-05-24] MEDS ORDERED: Levofloxacin TAB* 750 MG PO SCH (09:00)
[2017-05-24] MEDS: Magnesium Hydroxide LIQ* 30 ML UDC PO PRN ×2 (09:09→20:38)
[2017-05-24] MEDS: Psyllium PAK PO SCH (09:10)
[2017-05-24] MEDS: Gabapentin CAP(*) 100 MG PO SCH ×3 (09:12→20:30)
[2017-05-24] MEDS: Omeprazole CAP* 20 MG PO SCH (09:13)
[2017-05-24] MEDS: Docusate CAP* 100 MG PO SCH ×2 (09:13→20:30)
[2017-05-24] MEDS: guaiFENesin ER TAB 600 MG PO SCH ×2 (09:13→20:31)
[2017-05-24] MEDS: Aspirin EC Low Dose* 81 MG TAB.EC PO SCH (09:14)
[2017-05-24] MEDS: Atorvastatin* 10 MG TAB PO SCH (09:20)
--- NOTE | 2017-05-24 15:02 | PN ---
Subjective Date of Service: 05/24/17 Interval History: Occ pain L buttock to L leg, less frequent the last 24 hrs. No new c/o. Family History: Unchanged from Admission Social History: Unchanged from Admission Past Medical History: Unchanged from Admission Objective Active Medications: Hydrocodone Bitart/Acetaminophen ([place] 10/325 (Nf)) 1 tab PO Q4H PRN PRN Reason: PAIN Last Admin: 05/24/17 11:56 Dose: 1 tab Albuterol (Ventolin 2.5 Mg/3 Ml Neb.Lisa*) 2.5 mg INH Q2H PRN PRN Reason: SOB/WHEEZING Aspirin (Aspirin Ec Low Dose*) 162 mg PO DAILY [facility] Last Admin: 05/24/17 09:14 Dose: 162 mg Atorvastatin Calcium (Lipitor*) 5 mg PO DAILY [facility] Last Admin: 05/24/17 09:20 Dose: 5 mg Cholecalciferol (Vitamin D Tab*) 1,000 units PO DAILY [facility] Clonazepam (Klonopin Tab(*)) 0.5 mg PO TID PRN PRN Reason: ANXIETY Docusate Sodium (Colace Cap*) 100 mg PO BID [facility] Last Admin: 05/24/17 09:13 Dose: 100 mg Gabapentin (Neurontin Cap(*)) 200 mg PO TID [facility] Last Admin: 05/24/17 14:12 Dose: 200 mg Guaifenesin (Mucinex*) 600 mg PO BID [facility] Last Admin: 05/24/17 09:13 Dose: 600 mg Heparin Sodium (Porcine) (Heparin Vial(*)) 5,000 units SUBCUT Q8HR [facility] Stop: 05/24/17 23:30 Last Admin: 05/24/17 14:11 Dose: 5,000 units Levofloxacin (Levaquin Tab*) 750 mg PO Q48H [facility] Last Admin: 05/24/17 09:12 Dose: 750 mg Magnesium Hydroxide (Milk Of Magnesia Liq*) 30 ml PO BID PRN PRN Reason: CONSTIPATION Last Admin: 05/24/17 09:09 Dose: 30 ml Omeprazole (Prilosec Cap*) 20 mg PO EVERY OTHER DAY [facility] Last Admin: 05/24/17 09:13 Dose: 20 mg Oxycodone HCl (Roxycodone Tab*) 10 mg PO Q4H PRN PRN Reason: PAIN Last Admin: 05/24/17 09:13 Dose: 10 mg Polyethylene Glycol/Electrolytes (Miralax*) 17 gm PO DAILY PRN PRN Reason: CONSTIPATION Last Admin: 05/23/17 20:52 Dose: 17 gm Psyllium Hydrophilic Mucilloid (Metamucil Rob*) 1 pkt PO DAILY [facility] Last Admin: 05/24/17 09:10 Dose: 1 pkt Zolpidem Tartrate (Ambien Tab*) 5 mg PO BEDTIME PRN PRN Reason: INSOMNIA Last Admin: 05/22/17 23:08 Dose: 5 mg Vital Signs - 8 hr 05/24/17 05/24/17 05/24/17 07:26 07:27 08:00 Temperature 98.9 F Pulse Rate 86 Respiratory 20 17 20 Rate Blood Pressure 134/64 (mmHg) O2 Sat by Pulse 91 Oximetry 05/24/17 05/24/17 05/24/17 09:12 09:13 11:20 Temperature 99.7 F Pulse Rate 96 Respiratory 18 18 17 Rate Blood Pressure 109/48 (mmHg) O2 Sat by Pulse 95 Oximetry 05/24/17 05/24/17 05/24/17 11:56 11:57 14:01 Temperature Pulse Rate Respiratory 20 20 18 Rate Blood Pressure (mmHg) O2 Sat by Pulse Oximetry 05/24/17 14:12 Temperature Pulse Rate Respiratory 20 Rate Blood Pressure (mmHg) O2 Sat by Pulse Oximetry Oxygen Devices in Use Now: None Appearance: Alert, partly up in bed. dIn good spirits. Looks comfortalbe. Eyes: No Scleral Icterus Respiratory: Symmetrical Chest Expansion and Respiratory Effort, Clear to Auscultation, Clear to Percussion Cardiovascular: NL Sounds; No Murmurs; No JVD, RRR, No Edema, - Extremities: No Edema, No Clubbing, Cyanosis, - Skin: No Rash or Ulcers, No Nodules or Sclerosis, - Neurological: Alert and Oriented x 3, NL Sensation Result Diagrams: 05/23/17 04:42 05/22/17 05:52 Additional Lab and Data: Pressure injury to buttocks (right side of picture is towards Pt's head) Microbiology and Other Data: Microbiology 05/21/17 06:02 Legionella Urinary Antigen - Final Urine Negative Legionella Streptococcus pneumoniae Ag Screen - Final Negative S. 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 - Patient Problems (1) PNA (pneumonia) Current Visit: Yes Status: Acute Code(s): J18.9 - PNEUMONIA, UNSPECIFIED ORGANISM SNOMED Code(s): 238999148 Comment: - Community acquired - Urine antigens for legionella and S. pneum negative - Blood cultures, no growth day 3 - Sputum culture showed yeast and nl charles. Repeat CRP and CBC 05/25. - Changed to oral Levaquin (renally dosed) 05/24. (2) Neurogenic bowel Current Visit: No Status: Chronic Code(s): K59.2 - NEUROGENIC BOWEL, NOT ELSEWHERE CLASSIFIED SNOMED Code(s): 879118240 Comment: - Continue fiber regimen, miralax, and MOM (3) Stage III pressure ulcer of buttock Current Visit: No Status: Chronic Code(s): L89.303 - PRESSURE ULCER OF UNSPECIFIED BUTTOCK, STAGE 3 SNOMED Code(s): 28374177401654641 Comment: - Stage 1-3 to buttocks (various degrees at different locations, Stage 1 back, stage 2 back, and stage 2-3 buttocks) - Wound care consult appreciated, see Notes section. - Continue to T+P frequently (4) Insufficiency fracture of pelvis Current Visit: Yes Status: Acute Code(s): M84.454A - PATHOLOGICAL FRACTURE, PELVIS, INIT ENCNTR FOR FRACTURE SNOMED Code(s): 681656214 Comment: Vitamin D level add on was 28.3 on 05/23. Vitamin D3 100 U daily start 05/24.. Hydrocodone/APAP 10/325 q 4 hr PRN. PT/OT, PMRU eval. (5) Anemia Current Visit: No Status: Chronic Code(s): D64.9 - ANEMIA, UNSPECIFIED SNOMED Code(s): 717516393 Comment: Small change since 05/2016. (6) GERD (gastroesophageal reflux disease) Current Visit: No Status: Chronic Code(s): K21.9 - GASTRO-ESOPHAGEAL REFLUX DISEASE WITHOUT ESOPHAGITIS SNOMED Code(s): 039771304 Comment: - Continue omeprazole. (7) CAD (coronary artery disease) Current Visit: No Status: Chronic Code(s): I25.10 - ATHSCL HEART DISEASE OF [place] CORONARY ARTERY W/O ANG PCTRS SNOMED Code(s): 70823903 Comment: - Continue ASA and statin Status and Disposition: Inpatient. Discharge when medically stable, Pt lives in independent living at [place] and may need to move to a higher level of care vs [facility].
[2017-05-24] MEDS: Cholecalciferol TAB* 1000 UNITS PO SCH (15:46)
[2017-05-24] MEDS: Polyethylene Glycol 3350* 17 GM PACKET PO PRN (20:38)
[2017-05-25] MEDS: oxyCODONE TAB* 5 MG TAB PO PRN ×3 (00:44→10:30)
[2017-05-25] MEDS: Hydrocodone/Acetamin 10/325 1 TAB PO PRN ×2 (02:17→08:31)
[2017-05-25 05:42] LABS: ABS Basophils 0 10^3/ul (0-0.2); ABS Eosinophils 0.1 10^3/ul (0-0.6); ABS Lymphocytes 0.7 10^3/ul (1.0-4.8); ABS Monocytes 2.1 10^3/ul (0-0.8); ABS Neutrophils 15.5 10^3/ul (1.5-7.7); ABS Nucleated RBC 0 10^3/ul; Eosinophil % 0.4 % (0-6); Hematocrit 32 % (42-52); Hemoglobin 10.3 g/dl (14.0-18.0); Mean Corpuscular HGB Conc 33 g/dl (31-36); Mean Corpuscular Hemoglobin 30 pg (27-31); Mean Corpuscular Volume 91 fL (80-94); Nucleated Red Blood Cells % 0.1; Red Cell Distribution Width 18 % (10.5-15); White Blood Count 18.3 10^3/ul (3.5-10.8)
[2017-05-25] MEDS ORDERED: Enoxaparin(*) 40 MG/0.4 ML SYR SUBCUT SCH (06:00)
[2017-05-25 06:46] LABS: Mean Platelet Volume 7 um3 (7.4-10.4); Platelet Count 418 10^3/ul (150-450)
[2017-05-25] MEDS: Psyllium PAK PO SCH (08:29)
[2017-05-25] MEDS: Gabapentin CAP(*) 100 MG PO SCH (08:30)
[2017-05-25] MEDS: guaiFENesin ER TAB 600 MG PO SCH (08:30)
[2017-05-25] MEDS: Aspirin EC Low Dose* 81 MG TAB.EC PO SCH (08:30)
[2017-05-25] MEDS: Atorvastatin* 10 MG TAB PO SCH (08:30)
[2017-05-25] MEDS: Docusate CAP* 100 MG PO SCH (08:31)
[2017-05-25] MEDS: Cholecalciferol TAB* 1000 UNITS PO SCH (08:31)
[2017-05-25] MEDS: Polyethylene Glycol 3350* 17 GM PACKET PO PRN (09:50)
--- NOTE | 2017-05-25 09:57 | DCNOTE ---
Subjective Date of Service: 05/25/17 Interval History: Occ "sciatica" pain. Dry cough. Chronic R shoulder problem acting up today. Family History: Unchanged from Admission Social History: Unchanged from Admission Past Medical History: Unchanged from Admission Objective Active Medications: Hydrocodone Bitart/Acetaminophen ([place] 10/325 (Nf)) 1 tab PO Q4H PRN PRN Reason: PAIN Last Admin: 05/25/17 08:31 Dose: 1 tab Albuterol (Ventolin 2.5 Mg/3 Ml Neb.Lisa*) 2.5 mg INH Q2H PRN PRN Reason: SOB/WHEEZING Aspirin (Aspirin Ec Low Dose*) 162 mg PO DAILY [facility] Last Admin: 05/25/17 08:30 Dose: 162 mg Atorvastatin Calcium (Lipitor*) 5 mg PO DAILY [facility] Last Admin: 05/25/17 08:30 Dose: 5 mg Cholecalciferol (Vitamin D Tab*) 1,000 units PO DAILY [facility] Last Admin: 05/25/17 08:31 Dose: 1,000 units Clonazepam (Klonopin Tab(*)) 0.5 mg PO TID PRN PRN Reason: ANXIETY Docusate Sodium (Colace Cap*) 100 mg PO BID [facility] Last Admin: 05/25/17 08:31 Dose: 100 mg Enoxaparin Sodium (Lovenox(*)) 40 mg SUBCUT Q24H [facility] Last Admin: 05/25/17 05:31 Dose: 40 mg Gabapentin (Neurontin Cap(*)) 200 mg PO TID [facility] Last Admin: 05/25/17 08:30 Dose: 200 mg Guaifenesin (Mucinex*) 600 mg PO BID [facility] Last Admin: 05/25/17 08:30 Dose: 600 mg Levofloxacin (Levaquin Tab*) 750 mg PO Q48H [facility] Last Admin: 05/24/17 09:12 Dose: 750 mg Magnesium Hydroxide (Milk Of Magnesia Liq*) 30 ml PO BID PRN PRN Reason: CONSTIPATION Last Admin: 05/24/17 20:38 Dose: 30 ml Omeprazole (Prilosec Cap*) 20 mg PO EVERY OTHER DAY [facility] Last Admin: 05/24/17 09:13 Dose: 20 mg Oxycodone HCl (Roxycodone Tab*) 10 mg PO Q4H PRN PRN Reason: PAIN Last Admin: 05/25/17 05:30 Dose: 10 mg Polyethylene Glycol/Electrolytes (Miralax*) 17 gm PO DAILY PRN PRN Reason: CONSTIPATION Last Admin: 05/25/17 09:50 Dose: 17 gm Psyllium Hydrophilic Mucilloid (Metamucil Rob*) 1 pkt PO DAILY [facility] Last Admin: 05/25/17 08:29 Dose: 1 pkt Zolpidem Tartrate (Ambien Tab*) 5 mg PO BEDTIME PRN PRN Reason: INSOMNIA Last Admin: 05/22/17 23:08 Dose: 5 mg Vital Signs - 8 hr 05/25/17 05/25/17 05/25/17 02:17 02:20 03:18 Temperature Pulse Rate Respiratory 16 16 16 Rate Blood Pressure (mmHg) O2 Sat by Pulse Oximetry 05/25/17 05/25/17 05/25/17 03:59 04:16 05:30 Temperature 98.2 F Pulse Rate 89 Respiratory 20 16 16 Rate Blood Pressure 115/55 (mmHg) O2 Sat by Pulse 94 Oximetry 05/25/17 05/25/17 05/25/17 07:11 08:17 08:30 Temperature 98.9 F Pulse Rate 96 Respiratory 20 16 20 Rate Blood Pressure 155/78 (mmHg) O2 Sat by Pulse 94 Oximetry 05/25/17 08:31 Temperature Pulse Rate Respiratory 20 Rate Blood Pressure (mmHg) O2 Sat by Pulse Oximetry Oxygen Devices in Use Now: None Appearance: Alert, partly up in bed. Cold pack on R shoulder. In good spirits. Looks comfortable. Eyes: No Scleral Icterus Respiratory: Symmetrical Chest Expansion and Respiratory Effort, Clear to Auscultation, Clear to Percussion Cardiovascular: NL Sounds; No Murmurs; No JVD, RRR, No Edema, - Extremities: No Edema, No Clubbing, Cyanosis, - Skin: No Rash or Ulcers, No Nodules or Sclerosis, - Neurological: Alert and Oriented x 3, NL Sensation Result Diagrams: 05/25/17 06:36 05/22/17 05:52 Additional Lab and Data: Pressure injury to buttocks (right side of picture is towards Pt's head) Microbiology and Other Data: Microbiology 05/21/17 06:02 Legionella Urinary Antigen - Final Urine Negative Legionella Streptococcus pneumoniae Ag Screen - Final Negative S. 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 - Patient Problems (1) PNA (pneumonia) Current Visit: Yes Status: Acute Code(s): J18.9 - PNEUMONIA, UNSPECIFIED ORGANISM SNOMED Code(s): 728627217 Comment: Community acquired - Urine antigens for legionella and S. pneum negative - Blood cultures, no growth day 4 - Sputum culture showed yeast and nl charles. Repeat CRP up to 166. WBC down to 18.3. - Changed to oral Levaquin (renally dosed) last dose 05/26. CP may be up due to decubitus ulcer. (2) Neurogenic bowel Current Visit: No Status: Chronic Code(s): K59.2 - NEUROGENIC BOWEL, NOT ELSEWHERE CLASSIFIED SNOMED Code(s): 406203937 Comment: - Continue fiber regimen, miralax, and MOM (3) Stage III pressure ulcer of buttock Current Visit: No Status: Chronic Code(s): L89.303 - PRESSURE ULCER OF UNSPECIFIED BUTTOCK, STAGE 3 SNOMED Code(s): 79440137579641283 Comment: Stage 1-3 to buttocks (various degrees at different locations, Stage 1 back, stage 2 back, and stage 2-3 buttocks) Wound care consult appreciated, see Notes section. Start 10 day course cefuroxime now, complete at [facility]. CRP, CBC 06/01. (4) Insufficiency fracture of pelvis Current Visit: Yes Status: Acute Code(s): M84.454A - PATHOLOGICAL FRACTURE, PELVIS, INIT ENCNTR FOR FRACTURE SNOMED Code(s): 290035215 Comment: Vitamin D level add on was 28.3 on 05/23. Vitamin D3 100 U daily start 05/24.. Hydrocodone/APAP 10/325 q 4 hr PRN. (5) Anemia Current Visit: No Status: Chronic Code(s): D64.9 - ANEMIA, UNSPECIFIED SNOMED Code(s): 283762026 Comment: Small change since 05/2016. (6) GERD (gastroesophageal reflux disease) Current Visit: No Status: Chronic Code(s): K21.9 - GASTRO-ESOPHAGEAL REFLUX DISEASE WITHOUT ESOPHAGITIS SNOMED Code(s): 110093128 Comment: - Continue omeprazole. (7) CAD (coronary artery disease) Current Visit: No Status: Chronic Code(s): I25.10 - ATHSCL HEART DISEASE OF [place] CORONARY ARTERY W/O ANG PCTRS SNOMED Code(s): 44080079 Comment: - Continue ASA and statin Status and Disposition: Discharge to [facility].
--- NOTE | 2017-05-25 10:27 | PN ---
Progress Note - Progress Note Date of Service: 05/25/17 Note: Time spent on discharge 65 minutes.
[2017-05-25] MEDS ORDERED: ceFUROXime TAB(*) 250 MG PO SCH (11:00)
[2017-05-25 11:23] VITALS: BP 115/40
--- NOTE | 2017-05-26 09:58 | TRS ---
Cc: Dr. Lema TRANSFER SUMMARY: DATE OF ADMISSION: DATE OF TRANSFER: 05/25/17 HOSPITAL COURSE: This 86-year-old man presented with weakness for 2 weeks. He also had cough, sputu m production and wheezing. The patient was felt on admission to have community acquired pneumonia. He was started on intravenous levofloxacin. He did well regarding his pneumonia. His temperature was low 100 degrees. For the 48 hours before discharge, his sputum disappeared. He had a mild dry coug h. He was not hypoxic. He was found to have pelvic insufficiency fractures. His vitamin D level was 28, he was started on V itamin D 1000 units a day. He had a stage III decubitus ulcer. I am somewhat concerned as his CRP remains high despite treating his pneumonia. CRP initially was 259, was then 119, and then 166. His white count slowly fell, alt reddy never returned to normal. It was 18.3 on the day of discharge, which was the lowest value duri ng this hospital stay. The patient will need careful attention to his decubitus ulcer. I am going to give him a 10-day cour se of cefuroxime because of his elevated CRP and white count. I would repeat a CBC and CRP in a week . If there is any concern, I would do imaging to do rule out sacral osteomyelitis. I note that patient has chronic shoulder problems. He said he saw a shoulder surgeon a few years ago and was told he was not a candidate for surgery. FINAL DIAGNOSES: 1. Community acquired pneumonia. 2. Pelvic insufficiency fractures. 3. Stage III decubitus ulcer. 4. Chronic anemia. 5. Gastroesophageal reflux disease. 6. Coronary artery disease. DISCHARGE MEDICATIONS: 1. Cholecalciferol 1000 units daily. 2. Enoxaparin 40 mg subcu daily. 3. Gabapentin 200 mg t.i.d. 4. Levofloxacin 750 mg every 48 hours, last dose on 05/26. 5. Oxycodone 10 mg every 4 hours p.r.n. 6. Polyethylene glycol 17 g daily p.r.n. 7. Cefuroxime 500 mg b.i.d. for 10 days. 8. Psyllium 1 packet b.i.d. 9. Docusate 100 mg b.i.d. 10. Aspirin 162 mg daily. 11. Hydrocodone/acetaminophen 10/325 one tablet every 4 hours p.r.n. 12. Omeprazole 20 mg every other day. 13. Atorvastatin 5 mg daily. 14. Clonazepam 0.5 mg t.i.d. p.r.n. anxiety. [id number]/[facility] #: [id number]
== END 2017-05-25 12:06 | DRG 193 ==
LOC: ED 17:58 → SSU 22:35
PROVIDERS: ADMIT Hospitalist; ATTEND Internal Medicine
DX: J18.9 Pneumonia, unspecified organism (principal); L89.153 Pressure ulcer of sacral region, stage 3; K59.2 Neurogenic bowel, not elsewhere classified; M84.454A Pathological fracture, pelvis, initial encounter for fracture; N31.9 Neuromuscular dysfunction of bladder, unspecified; M48.02 Spinal stenosis, cervical region; I11.9 Hypertensive heart disease without heart failure; K21.9 Gastro-esophageal reflux disease without esophagitis; I25.10 Atherosclerotic heart disease of native coronary artery without angina pectoris; D50.9 Iron deficiency anemia, unspecified; Z66 Do not resuscitate; G89.29 Other chronic pain; Z95.5 Presence of coronary angioplasty implant and graft; Z85.46 Personal history of malignant neoplasm of prostate; M54.30 Sciatica, unspecified side; Z79.82 Long term (current) use of aspirin; Z79.899 Other long term (current) drug therapy; Z88.1 Allergy status to other antibiotic agents; Z88.8 Allergy status to other drugs, medicaments and biological substances; Z91.048 Other nonmedicinal substance allergy status; Z81.1 Family history of alcohol abuse and dependence; Z82.3 Family history of stroke; Z80.42 Family history of malignant neoplasm of prostate; Z82.49 Family history of ischemic heart disease and other diseases of the circulatory system
CPT/HCPCS: 36415; 71045; 72195; 80048; 80053; 81003; 81015; 82306; 83605; 83690; 83735; 83880; 84443; 84484; 85025; 85049; 85610; 85730; 86140; 87040; 87070; 87086; 87205; 87502; 87899; 93005; 99283; A9270-GY; J0696; J1644; J1650; J2270; J3475; J7512

== ENCOUNTER 2017-05-29 20:05 | Inpatient (IN) | payer MEDICARE, OTHER ==
[2017-05-29] MEDS ORDERED: cefTRIAXone(*) 1 GM in NS 0.9% 50 ML* 50 ML IVPB ONE (20:47)
[2017-05-29] MEDS ORDERED: Azithromycin IV(*) 500 MG in NS 0.9% 250 ML* 250 ML IVPB ONE (20:48)
--- NOTE | 2017-05-29 20:53 | RAD ---
Indication: Shortness of breath. Single frontal portable view of the chest is reviewed and compared to previous exam dated May 20, 2017. There is developing and progressive right basilar pneumonia. Left lung field is clear. There may be right upper lobe pneumonia now as well. IMPRESSION: Progressive right upper lobe and right lower lobe pneumonia when compared to previous exam of May 20, 2017.
[2017-05-29 21:26] LABS: Hematocrit 31 % (42-52); Hemoglobin 10.2 g/dl (14.0-18.0); Mean Corpuscular HGB Conc 33 g/dl (31-36); Mean Corpuscular Hemoglobin 29 pg (27-31); Mean Corpuscular Volume 89 fL (80-94); Mean Platelet Volume 8 um3 (7.4-10.4); Platelet Count 711 10^3/ul (150-450); Red Cell Distribution Width 19 % (10.5-15); White Blood Count 11.5 10^3/ul (3.5-10.8)
[2017-05-29 21:33] LABS: INR 1.01 (0.77-1.02)
[2017-05-29 21:42] LABS: ABS Basophils 0.1 10^3/ul (0-0.2); ABS Eosinophils 0.2 10^3/ul (0-0.6); ABS Lymphocytes 0.7 10^3/ul (1.0-4.8); ABS Monocytes 1.3 10^3/ul (0-0.8); ABS Neutrophils 9.2 10^3/ul (1.5-7.7); ABS Nucleated RBC 0 10^3/ul; Eosinophil % 1.9 % (0-6); Lymphocyte % 5.7 % (25-47); Nucleated Red Blood Cells % 0
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
[2017-05-29 23:24] LABS: Urine Appearance Clear; Urine Blood Negative (Negative); Urine Color Yellow; Urine Ketones Negative (Negative); Urine Protein Negative (Negative); Urine Specific Gravity 1.013 (1.010-1.030); Urine Urobilinogen Negative (Negative)
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
[2017-05-30] MEDS ORDERED: Ondansetron INJ* 2 MG/ML VIAL IV PRN (01:08)
[2017-05-30] MEDS: clonazePAM TAB(*) 0.5 MG PO PRN (01:45)
[2017-05-30] MEDS: NS 0.9% 1000 ML* 1,000 ML IV SCH ×2 (01:45→22:08)
[2017-05-30] MEDS: oxyCODONE TAB* 5 MG TAB PO PRN ×4 (01:45→23:50)
[2017-05-30] MEDS: Acetaminophen TAB* 325 MG PO PRN ×4 (01:45→23:50)
[2017-05-30] MEDS: Gabapentin CAP(*) 100 MG PO PRN (01:45)
[2017-05-30] MEDS: CMCS:Melatonin (NF) 3 MG TAB PO PRN (02:50)
[2017-05-30] MEDS: Omeprazole CAP* 20 MG PO SCH (05:30)
[2017-05-30 06:18] LABS: ABS Basophils 0.1 10^3/ul (0-0.2); ABS Eosinophils 0.3 10^3/ul (0-0.6); ABS Lymphocytes 0.7 10^3/ul (1.0-4.8); ABS Monocytes 1.1 10^3/ul (0-0.8); ABS Neutrophils 6.8 10^3/ul (1.5-7.7); ABS Nucleated RBC 0 10^3/ul; Eosinophil % 2.9 % (0-6); Hematocrit 26 % (42-52); Hemoglobin 8.9 g/dl (14.0-18.0); Lymphocyte % 7.8 % (25-47); Mean Corpuscular HGB Conc 34 g/dl (31-36); Mean Corpuscular Hemoglobin 30 pg (27-31); Mean Corpuscular Volume 89 fL (80-94); Mean Platelet Volume 8 um3 (7.4-10.4); Nucleated Red Blood Cells % 0; Platelet Count 576 10^3/ul (150-450); Red Blood Count 2.96 10^6/ul (4.0-5.4); Red Cell Distribution Width 18 % (10.5-15); White Blood Count 8.9 10^3/ul (3.5-10.8)
[2017-05-30 06:34] LABS: EGFR Non-African American 148.1 (>60)
[2017-05-30] MEDS ORDERED: Levofloxacin TAB* 750 MG PO SCH (09:00)
[2017-05-30] MEDS: Atorvastatin* 10 MG TAB PO SCH (09:22)
[2017-05-30] MEDS: Docusate CAP* 100 MG PO SCH ×2 (09:22→19:50)
[2017-05-30] MEDS: Psyllium PAK PO SCH ×2 (09:22→19:50)
[2017-05-30] MEDS: Aspirin EC Low Dose* 81 MG TAB.EC PO SCH (09:22)
[2017-05-30] MEDS: Enoxaparin(*) 40 MG/0.4 ML SYR SUBCUT SCH (09:22)
--- NOTE | 2017-05-30 17:53 | PN ---
Subjective Date of Service: 05/30/17 Interval History: Mr. Bagley denies chest pain or abd pain. Denies n/v/d Denies increased shortness of breath, states that his episode of shortness of breath was transient and only lasted approximately 30 minutes. Family History: Unchanged from Admission Social History: Unchanged from Admission Past Medical History: Unchanged from Admission Objective Active Medications: Acetaminophen (Tylenol Tab*) 650 mg PO Q6H PRN PRN Reason: FEVER/PAIN Last Admin: 05/30/17 15:04 Dose: 650 mg Aspirin (Aspirin Ec Low Dose*) 162 mg PO DAILY [facility] Last Admin: 05/30/17 09:22 Dose: 162 mg Atorvastatin Calcium (Lipitor*) 10 mg PO DAILY [facility] Last Admin: 05/30/17 09:22 Dose: 10 mg Clonazepam (Klonopin Tab(*)) 0.5 mg PO Q8HR PRN PRN Reason: ANXIETY Last Admin: 05/30/17 01:45 Dose: 0.5 mg Docusate Sodium (Colace Cap*) 100 mg PO BID [facility] Last Admin: 05/30/17 09:22 Dose: 100 mg Enoxaparin Sodium (Lovenox(*)) 40 mg SUBCUT Q24HR [facility] Last Admin: 05/30/17 09:22 Dose: 40 mg Gabapentin (Neurontin Cap(*)) 200 mg PO TID PRN PRN Reason: PAIN Last Admin: 05/30/17 01:45 Dose: 200 mg Sodium Chloride (Ns 0.9% 1000 Ml*) 1,000 mls @ 50 mls/hr IV PER RATE [facility] Last Admin: 05/30/17 01:45 Dose: 50 mls/hr Ceftriaxone Sodium 1,000 mg/ (Sodium Chloride) 50 mls @ 200 mls/hr IVPB Q24H [facility] Azithromycin 500 mg/ Sodium (Chloride) 250 mls @ 250 mls/hr IVPB Q24H [facility] Levofloxacin (Levaquin Tab*) 750 mg PO DAILY [facility] Last Admin: 05/30/17 09:22 Dose: 750 mg Melatonin (Melatonin (Nf)) 6 mg PO BEDTIME PRN; Protocol PRN Reason: Sleep Last Admin: 05/30/17 02:50 Dose: 6 mg Omeprazole (Prilosec Cap*) 20 mg PO EVERY OTHER DAY@0730 [facility] Last Admin: 05/30/17 05:30 Dose: Not Given Ondansetron HCl (Zofran Inj*) 4 mg IV Q6H PRN PRN Reason: NAUSEA Oxycodone HCl (Roxycodone Tab*) 10 mg PO Q4H PRN PRN Reason: PAIN Last Admin: 05/30/17 15:05 Dose: 10 mg Polyethylene Glycol/Electrolytes (Miralax*) 17 gm PO DAILY PRN PRN Reason: CONSTIPATION Psyllium Hydrophilic Mucilloid (Metamucil Rob*) 1 pkt PO BID [facility] Last Admin: 05/30/17 09:22 Dose: 1 pkt Vital Signs - 8 hr 05/30/17 05/30/17 05/30/17 11:22 15:05 16:00 Temperature 98.3 F 97.9 F Pulse Rate 85 79 Respiratory 18 18 16 Rate Blood Pressure 97/49 114/56 (mmHg) O2 Sat by Pulse 96 99 Oximetry 05/30/17 17:37 Temperature Pulse Rate Respiratory 18 Rate Blood Pressure (mmHg) O2 Sat by Pulse Oximetry Oxygen Devices in Use Now: None Appearance: appears comfortable resting in bed Eyes: No Scleral Icterus Ears/Nose/Mouth/Throat: Clear Oropharnyx, Mucous Membranes Moist Neck: NL Appearance and Movements; NL JVP, Trachea Midline Respiratory: Symmetrical Chest Expansion and Respiratory Effort, - - mild accessory muscle use, diminished t/o bilat Cardiovascular: NL Sounds; No Murmurs; No JVD, - - +2 pitting edema to bilat lower extremities Abdominal: NL Sounds; No Tenderness; No Distention Extremities: No Clubbing, Cyanosis Skin: No Rash or Ulcers Neurological: Alert and Oriented x 3 Nutrition: Taking PO's Result Diagrams: 05/30/17 05:35 05/30/17 05:35 Microbiology and Other Data: Microbiology 05/29/17 23:12 Nasal Screen MRSA (PCR)(NILSA) - Final Nasal Mrsa Not Detected Assess/Plan/Problems-Billing Assessment: Mr. Bagley is an 86 y.o male that presented to the emergency room for a transient episode of shortness of breath. Patient was found to have worsening PNA, [facility] not to return to that facility. - Patient Problems (1) PNA (pneumonia) Current Visit: No Status: Acute Code(s): J18.9 - PNEUMONIA, UNSPECIFIED ORGANISM SNOMED Code(s): 517508049 Comment: ~ cxr showed worsening PNA ~ will continue ceftriaxone and azithromycin ~ Continue o2 as needed ~ blood cultures pending (2) Stage II pressure ulcer of buttock Current Visit: No Status: Acute Code(s): L89.302 - PRESSURE ULCER OF UNSPECIFIED BUTTOCK, STAGE 2 SNOMED Code(s): 17581659598668727 Comment: - Turn and position - Continue protective cream if dressing not in place (3) CAD (coronary artery disease) Current Visit: No Status: Chronic Code(s): I25.10 - ATHSCL HEART DISEASE OF [place] CORONARY ARTERY W/O ANG PCTRS SNOMED Code(s): 69806042 Comment: - Continue ASA and statin (4) GERD (gastroesophageal reflux disease) Current Visit: No Status: Chronic Code(s): K21.9 - GASTRO-ESOPHAGEAL REFLUX DISEASE WITHOUT ESOPHAGITIS SNOMED Code(s): 464735421 Comment: - Continue omeprazole. (5) DVT prophylaxis Current Visit: No Status: Acute Code(s): CSP1789 - SNOMED Code(s): 814760022 Comment: Yoly (6) DNR (do not resuscitate) Current Visit: No Status: Acute Status and Disposition: inpatient ~ consult case management as patient does not want to return [facility]
[2017-05-30] MEDS: Polyethylene Glycol 3350* 17 GM PACKET PO PRN (19:50)
[2017-05-31] MEDS: CMCS:Melatonin (NF) 3 MG TAB PO PRN (00:06)
[2017-05-31] MEDS: oxyCODONE TAB* 5 MG TAB PO PRN ×4 (04:50→20:03)
[2017-05-31 06:06] LABS: ABS Basophils 0.1 10^3/ul (0-0.2); ABS Eosinophils 0.3 10^3/ul (0-0.6); ABS Lymphocytes 0.7 10^3/ul (1.0-4.8); ABS Neutrophils 5.9 10^3/ul (1.5-7.7); ABS Nucleated RBC 0 10^3/ul; Eosinophil % 3.3 % (0-6); Hematocrit 26 % (42-52); Hemoglobin 8.6 g/dl (14.0-18.0); Lymphocyte % 8.7 % (25-47); Mean Corpuscular HGB Conc 33 g/dl (31-36); Mean Corpuscular Hemoglobin 30 pg (27-31); Mean Corpuscular Volume 90 fL (80-94); Mean Platelet Volume 8 um3 (7.4-10.4); Nucleated Red Blood Cells % 0.1; Platelet Count 538 10^3/ul (150-450); Red Blood Count 2.92 10^6/ul (4.0-5.4); Red Cell Distribution Width 18 % (10.5-15); White Blood Count 7.9 10^3/ul (3.5-10.8)
[2017-05-31 06:24] LABS: EGFR Non-African American 141.9 (>60)
[2017-05-31] MEDS: Acetaminophen TAB* 325 MG PO PRN ×3 (08:46→20:11)
[2017-05-31] MEDS: Polyethylene Glycol 3350* 17 GM PACKET PO PRN (08:46)
[2017-05-31] MEDS: Psyllium PAK PO SCH ×2 (08:46→20:56)
[2017-05-31] MEDS: Enoxaparin(*) 40 MG/0.4 ML SYR SUBCUT SCH (08:46)
[2017-05-31] MEDS: Atorvastatin* 10 MG TAB PO SCH (08:47)
[2017-05-31] MEDS: Docusate CAP* 100 MG PO SCH ×2 (08:47→20:03)
[2017-05-31] MEDS: Aspirin EC Low Dose* 81 MG TAB.EC PO SCH (08:47)
[2017-05-31] MEDS: Levofloxacin TAB* 250 MG PO SCH (08:47)
--- NOTE | 2017-05-31 14:16 | RAD ---
HISTORY: Shortness of breath COMPARISONS: May 29, 2012 VIEWS: 2: Frontal and lateral views of the chest. FINDINGS: CARDIOMEDIASTINAL SILHOUETTE: The cardiomediastinal silhouette is normal. VANNA: The vanna are normal. PLEURA: There is moderate right pleural effusion, with fluid along the minor fissure. LUNG PARENCHYMA: There is patchy alveolar opacification of the right upper and right lower lung with somewhat improved aeration from the previous examination. ABDOMEN: The upper abdomen is clear. There is no subphrenic gas. BONES AND SOFT TISSUES: No bone or soft tissue abnormalities are noted. OTHER: None. IMPRESSION: 1. RIGHT PLEURAL EFFUSION. 2. PATCHY AIRSPACE DISEASE OF THE RIGHT LUNG, WITH SOMEWHAT IMPROVED AERATION COMPARED TO THE PREVIOUS EXAMINATION.
[2017-05-31] MEDS ORDERED: Iohexol 350* (CONTRAST) 500 ML MDV IV ONE (15:17)
--- NOTE | 2017-05-31 17:04 | PN ---
Subjective Date of Service: 05/31/17 Interval History: Report episode of shortness of breath this AM after exertion states shortness of breath last approx 30 minutes, resolved spontaneously. states that this episode was the same as the episode that he had that brought him to the hospital. Denies any chest pain or palpitations. Denies abd pain. Denies n/v/ d. Family History: Unchanged from Admission Social History: Unchanged from Admission Past Medical History: Unchanged from Admission Objective Active Medications: Acetaminophen (Tylenol Tab*) 650 mg PO Q6H PRN PRN Reason: FEVER/PAIN Last Admin: 05/31/17 15:51 Dose: 650 mg Aspirin (Aspirin Ec Low Dose*) 162 mg PO DAILY [facility] Last Admin: 05/31/17 08:47 Dose: 162 mg Atorvastatin Calcium (Lipitor*) 10 mg PO DAILY [facility] Last Admin: 05/31/17 08:47 Dose: 10 mg Clonazepam (Klonopin Tab(*)) 0.5 mg PO Q8HR PRN PRN Reason: ANXIETY Last Admin: 05/30/17 01:45 Dose: 0.5 mg Docusate Sodium (Colace Cap*) 100 mg PO BID [facility] Last Admin: 05/31/17 08:47 Dose: 100 mg Enoxaparin Sodium (Lovenox(*)) 40 mg SUBCUT Q24HR [facility] Last Admin: 05/31/17 08:46 Dose: 40 mg Gabapentin (Neurontin Cap(*)) 200 mg PO TID PRN PRN Reason: PAIN Last Admin: 05/30/17 01:45 Dose: 200 mg Ceftriaxone Sodium 1,000 mg/ (Sodium Chloride) 50 mls @ 200 mls/hr IVPB Q24H [facility] Azithromycin 500 mg/ Sodium (Chloride) 250 mls @ 250 mls/hr IVPB Q24H [facility] Levofloxacin (Levaquin Tab*) 750 mg PO Q24H [facility] Last Admin: 05/31/17 08:47 Dose: 750 mg Melatonin (Melatonin (Nf)) 6 mg PO BEDTIME PRN; Protocol PRN Reason: Sleep Last Admin: 05/31/17 00:06 Dose: 6 mg Omeprazole (Prilosec Cap*) 20 mg PO EVERY OTHER DAY@0730 [facility] Last Admin: 05/30/17 05:30 Dose: Not Given Oxycodone HCl (Roxycodone Tab*) 10 mg PO Q4H PRN PRN Reason: PAIN Last Admin: 05/31/17 15:52 Dose: 10 mg Polyethylene Glycol/Electrolytes (Miralax*) 17 gm PO DAILY PRN PRN Reason: CONSTIPATION Last Admin: 05/31/17 08:46 Dose: 17 gm Psyllium Hydrophilic Mucilloid (Metamucil Rob*) 1 pkt PO BID [facility] Last Admin: 05/31/17 08:46 Dose: 1 pkt Vital Signs - 8 hr 05/31/17 05/31/17 05/31/17 09:50 10:31 10:58 Temperature 98.4 F Pulse Rate 93 Respiratory 18 20 Rate Blood Pressure 96/47 (mmHg) O2 Sat by Pulse 95 95 Oximetry 05/31/17 05/31/17 05/31/17 13:52 15:23 15:52 Temperature Pulse Rate 88 Respiratory 18 16 18 Rate Blood Pressure 122/55 (mmHg) O2 Sat by Pulse 94 Oximetry Oxygen Devices in Use Now: None Appearance: appears comfortable sitting in the chair. Eyes: No Scleral Icterus Ears/Nose/Mouth/Throat: Clear Oropharnyx, Mucous Membranes Moist Neck: NL Appearance and Movements; NL JVP, Trachea Midline Respiratory: Symmetrical Chest Expansion and Respiratory Effort, - - diminished in the bases, clear t/o Cardiovascular: NL Sounds; No Murmurs; No JVD Abdominal: NL Sounds; No Tenderness; No Distention Extremities: No Clubbing, Cyanosis, - - +2 pitting edema to lower legs Skin: - - dressing in Neurological: Alert and Oriented x 3 Result Diagrams: 05/31/17 05:38 05/31/17 05:38 Microbiology and Other Data: Microbiology 05/29/17 23:12 Nasal Screen MRSA (PCR)(NILSA) - Final Nasal Mrsa Not Detected Assess/Plan/Problems-Billing Assessment: Mr. Bagley is an 86 y.o male that presented to the emergency room for a transient episode of shortness of breath. Patient was found to have worsening PNA, [facility] that [facility]. - Patient Problems (1) PNA (pneumonia) Current Visit: No Status: Acute Code(s): J18.9 - PNEUMONIA, UNSPECIFIED ORGANISM SNOMED Code(s): 922388011 Comment: ~ cxr showed worsening PNA on admission repeat chest x ray today showed right pleural effusion and improved aeration ~ will continue ceftriaxone and azithromycin and levaquin ~ d/t symptoms CTA of the chest was completed~ showed large pleural effusion~ will consult surgery in the AM for possible intervention. ~ Continue o2 as needed ~ blood cultures- no growth 1 day (2) Stage II pressure ulcer of buttock Current Visit: No Status: Acute Code(s): L89.302 - PRESSURE ULCER OF UNSPECIFIED BUTTOCK, STAGE 2 SNOMED Code(s): 71402475296942432 Comment: - Turn and position - Continue medihoney cream if dressing not in place (3) CAD (coronary artery disease) Current Visit: No Status: Chronic Code(s): I25.10 - ATHSCL HEART DISEASE OF [place] CORONARY ARTERY W/O ANG PCTRS SNOMED Code(s): 72189918 Comment: - Continue ASA and statin (4) GERD (gastroesophageal reflux disease) Current Visit: No Status: Chronic Code(s): K21.9 - GASTRO-ESOPHAGEAL REFLUX DISEASE WITHOUT ESOPHAGITIS SNOMED Code(s): 274736042 Comment: - Continue omeprazole. (5) DVT prophylaxis Current Visit: No Status: Acute Code(s): YJA7738 - SNOMED Code(s): 388769101 Comment: Lovenox (6) DNR (do not resuscitate) Current Visit: No Status: Acute Status and Disposition: inpatient ~ consult case management as patient [facility] not [facility]
--- NOTE | 2017-05-31 17:53 | RAD ---
HISTORY: Shortness of breath COMPARISONS: April 03, 2017 TECHNIQUE: Multiple contiguous axial CT scans of the chest were obtained after the administration of nonionic intravenous contrast, timed to the pulmonary arterial phase of contrast enhancement.. Coronal and sagittal multiplanar reformations are also submitted for review. FINDINGS: NECK AND THYROID: The lower neck and thyroid are unremarkable. CHEST WALL: There is no lower cervical, axillary, or supraclavicular lymphadenopathy by size criteria. HEART AND PERICARDIUM: The heart is unremarkable. AORTA AND PULMONARY VASCULATURE: There is no pulmonary arterial filling defect to suggest pulmonary embolism. There is no linear filling defect within the aorta to suggest aortic dissection. The bones and degenerative changes are noted of the spine there is a stable compression deformity of T12. MEDIASTINUM: There is no mediastinal lymphadenopathy by size criteria. VANNA: There is no hilar lymphadenopathy by size criteria. AIRWAY AND ESOPHAGUS: The airway is unremarkable, without endobronchial filling defect. The esophagus is grossly normal. LUNG PARENCHYMA: There is segmental consolidation of the right lower lobe with patchy groundglass opacification of the right upper lobe. There is compressive atelectasis of the right lower lobe. PLEURA: There is a large right pleural effusion UPPER ABDOMEN: The upper abdomen is unremarkable. BONES AND SOFT TISSUES: No bone or soft tissue abnormalities are noted. OTHER: None. IMPRESSION: 1. NO PULMONARY ARTERIAL FILLING DEFECT TO SUGGEST PULMONARY EMBOLISM. 2. LARGE RIGHT PLEURAL EFFUSION. 3. MULTIFOCAL CONSOLIDATION OF THE RIGHT LUNG
[2017-05-31] MEDS: Azithromycin IV(*) 500 MG in NS 0.9% 250 ML* 250 ML IVPB SCH (20:02)
[2017-05-31] MEDS: cefTRIAXone VIAL(*) 1,000 MG in NS 0.9% 50 ML* 50 ML IVPB SCH (22:58)
[2017-06-01] MEDS: CMCS:Melatonin (NF) 3 MG TAB PO PRN ×2 (00:14→22:42)
[2017-06-01] MEDS: oxyCODONE TAB* 5 MG TAB PO PRN ×5 (00:20→20:28)
[2017-06-01] MEDS: Acetaminophen TAB* 325 MG PO PRN ×3 (04:22→20:27)
[2017-06-01] MEDS: Omeprazole CAP* 20 MG PO SCH (08:08)
[2017-06-01] MEDS: Enoxaparin(*) 40 MG/0.4 ML SYR SUBCUT SCH (10:02)
[2017-06-01] MEDS: Atorvastatin* 10 MG TAB PO SCH (10:02)
[2017-06-01] MEDS: Docusate CAP* 100 MG PO SCH ×2 (10:02→20:27)
[2017-06-01] MEDS: Levofloxacin TAB* 250 MG PO SCH (10:02)
[2017-06-01] MEDS: Aspirin EC Low Dose* 81 MG TAB.EC PO SCH (10:02)
[2017-06-01] MEDS: Psyllium PAK PO SCH ×2 (10:02→20:28)
--- NOTE | 2017-06-01 17:26 | PN ---
Subjective Date of Service: 06/01/17 Interval History: Denies any new episodes of shortness of breath. Denies any chest pain or abd pain. Denies n/v/d Family History: Unchanged from Admission Social History: Unchanged from Admission Past Medical History: Unchanged from Admission Objective Active Medications: Acetaminophen (Tylenol Tab*) 650 mg PO Q6H PRN PRN Reason: FEVER/PAIN Last Admin: 06/01/17 13:58 Dose: 650 mg Aspirin (Aspirin Ec Low Dose*) 162 mg PO DAILY [facility] Last Admin: 06/01/17 10:02 Dose: 162 mg Atorvastatin Calcium (Lipitor*) 10 mg PO DAILY [facility] Last Admin: 06/01/17 10:02 Dose: 10 mg Clonazepam (Klonopin Tab(*)) 0.5 mg PO Q8HR PRN PRN Reason: ANXIETY Last Admin: 05/30/17 01:45 Dose: 0.5 mg Docusate Sodium (Colace Cap*) 100 mg PO BID [facility] Last Admin: 06/01/17 10:02 Dose: 100 mg Enoxaparin Sodium (Lovenox(*)) 40 mg SUBCUT Q24HR [facility] Last Admin: 06/01/17 10:02 Dose: 40 mg Gabapentin (Neurontin Cap(*)) 200 mg PO TID PRN PRN Reason: PAIN Last Admin: 05/30/17 01:45 Dose: 200 mg Ceftriaxone Sodium 1,000 mg/ (Sodium Chloride) 50 mls @ 200 mls/hr IVPB Q24H [facility] Last Admin: 05/31/17 22:58 Dose: 200 mls/hr Azithromycin 500 mg/ Sodium (Chloride) 250 mls @ 250 mls/hr IVPB Q24H [facility] Last Admin: 05/31/17 20:02 Dose: 250 mls/hr Levofloxacin (Levaquin Tab*) 750 mg PO Q24H [facility] Last Admin: 06/01/17 10:02 Dose: 750 mg Melatonin (Melatonin (Nf)) 6 mg PO BEDTIME PRN; Protocol PRN Reason: Sleep Last Admin: 06/01/17 00:14 Dose: 6 mg Omeprazole (Prilosec Cap*) 20 mg PO EVERY OTHER DAY@0730 [facility] Last Admin: 06/01/17 08:08 Dose: 20 mg Oxycodone HCl (Roxycodone Tab*) 10 mg PO Q4H PRN PRN Reason: PAIN Last Admin: 06/01/17 16:18 Dose: 10 mg Polyethylene Glycol/Electrolytes (Miralax*) 17 gm PO DAILY PRN PRN Reason: CONSTIPATION Last Admin: 05/31/17 08:46 Dose: 17 gm Psyllium Hydrophilic Mucilloid (Metamucil Rob*) 1 pkt PO BID [facility] Last Admin: 06/01/17 10:02 Dose: 1 pkt Vital Signs - 8 hr 06/01/17 06/01/17 06/01/17 11:22 11:55 15:37 Temperature 96.9 F 98.4 F Pulse Rate 92 88 Respiratory 16 16 20 Rate Blood Pressure 92/52 124/59 (mmHg) O2 Sat by Pulse 96 97 Oximetry 06/01/17 16:18 Temperature Pulse Rate Respiratory 16 Rate Blood Pressure (mmHg) O2 Sat by Pulse Oximetry Oxygen Devices in Use Now: None Appearance: appears confortable lying in the bed Eyes: No Scleral Icterus Ears/Nose/Mouth/Throat: Clear Oropharnyx, Mucous Membranes Moist Neck: NL Appearance and Movements; NL JVP, Trachea Midline Respiratory: Symmetrical Chest Expansion and Respiratory Effort, - - diminished breath sounds throughout bilat Cardiovascular: NL Sounds; No Murmurs; No JVD Abdominal: NL Sounds; No Tenderness; No Distention Extremities: No Clubbing, Cyanosis, - - bilat lower ext with +2 pitting edema Skin: No Rash or Ulcers Neurological: Alert and Oriented x 3 Nutrition: Taking PO's Result Diagrams: 05/31/17 05:38 05/31/17 05:38 Microbiology and Other Data: Microbiology 05/29/17 23:12 Nasal Screen MRSA (PCR)(NILSA) - Final Nasal Mrsa Not Detected Assess/Plan/Problems-Billing Assessment: Mr. Bagley is an 86 y.o male that presented to the emergency room for a transient episode of shortness of breath. Patient was found to have worsening PNA, Patient is currently residing at [facility] and wishes not to return to that facility. - Patient Problems (1) PNA (pneumonia) Current Visit: No Status: Acute Code(s): J18.9 - PNEUMONIA, UNSPECIFIED ORGANISM SNOMED Code(s): 153090485 Comment: ~ cxr showed worsening PNA on admission repeat chest x ray showed right pleural effusion and improved aeration ~ will continue ceftriaxone and azithromycin and levaquin ~ d/t symptoms of continued SOB CTA of the chest was completed~ showed large pleural effusion~ will consult pulmonology for further recommendations ~ Continue o2 as needed ~ blood cultures- no growth 2 day (2) Stage II pressure ulcer of buttock Current Visit: No Status: Acute Code(s): L89.302 - PRESSURE ULCER OF UNSPECIFIED BUTTOCK, STAGE 2 SNOMED Code(s): 60863988827417347 Comment: - Turn and position - Continue medihoney cream if dressing not in place (3) CAD (coronary artery disease) Current Visit: No Status: Chronic Code(s): I25.10 - ATHSCL HEART DISEASE OF [place] CORONARY ARTERY W/O ANG PCTRS SNOMED Code(s): 02770686 Comment: - Continue ASA and statin (4) GERD (gastroesophageal reflux disease) Current Visit: No Status: Chronic Code(s): K21.9 - GASTRO-ESOPHAGEAL REFLUX DISEASE WITHOUT ESOPHAGITIS SNOMED Code(s): 335548204 Comment: - Continue omeprazole. (5) DVT prophylaxis Current Visit: No Status: Acute Code(s): DHL6530 - SNOMED Code(s): 049249321 Comment: Yoly (6) DNR (do not resuscitate) Current Visit: No Status: Acute Status and Disposition: inpatient ~ consult case management as patient does not want to return to [facility] for rehab
[2017-06-01] MEDS: Azithromycin IV(*) 500 MG in NS 0.9% 250 ML* 250 ML IVPB SCH (20:28)
[2017-06-01] MEDS: cefTRIAXone VIAL(*) 1,000 MG in NS 0.9% 50 ML* 50 ML IVPB SCH (22:15)
[2017-06-01] MEDS: Polyethylene Glycol 3350* 17 GM PACKET PO PRN (22:15)
[2017-06-01] MEDS: clonazePAM TAB(*) 0.5 MG PO PRN (22:42)
[2017-06-02] MEDS: oxyCODONE TAB* 5 MG TAB PO PRN ×4 (01:42→20:57)
[2017-06-02 06:29] LABS: Hematocrit 28 % (42-52); Hemoglobin 9.1 g/dl (14.0-18.0); Mean Corpuscular HGB Conc 33 g/dl (31-36); Mean Corpuscular Hemoglobin 29 pg (27-31); Mean Corpuscular Volume 88 fL (80-94); Mean Platelet Volume 8 um3 (7.4-10.4); Platelet Count 593 10^3/ul (150-450); Red Blood Count 3.11 10^6/ul (4.0-5.4); Red Cell Distribution Width 19 % (10.5-15); White Blood Count 8.1 10^3/ul (3.5-10.8)
[2017-06-02 06:34] LABS: ABS Basophils 0 10^3/ul (0-0.2); ABS Eosinophils 0.2 10^3/ul (0-0.6); ABS Lymphocytes 0.8 10^3/ul (1.0-4.8); ABS Monocytes 1.1 10^3/ul (0-0.8); ABS Neutrophils 5.8 10^3/ul (1.5-7.7); ABS Nucleated RBC 0 10^3/ul; Eosinophil % 2.4 % (0-6); Lymphocyte % 9.7 % (25-47); Nucleated Red Blood Cells % 0.1
[2017-06-02] MEDS: Enoxaparin(*) 40 MG/0.4 ML SYR SUBCUT SCH (11:33)
[2017-06-02] MEDS: Psyllium PAK PO SCH ×2 (11:33→20:57)
[2017-06-02] MEDS: Docusate CAP* 100 MG PO SCH ×2 (11:33→20:57)
[2017-06-02] MEDS: Levofloxacin TAB* 250 MG PO SCH (11:33)
[2017-06-02] MEDS: Aspirin EC Low Dose* 81 MG TAB.EC PO SCH (11:33)
[2017-06-02] MEDS: Atorvastatin* 10 MG TAB PO SCH (11:34)
--- NOTE | 2017-06-02 12:21 | PN ---
Subjective Date of Service: 06/02/17 Interval History: Patient states that he continues to improve daily. Denies any shortness of breath or chest pain. denies abd pain n/v/d. states that he does have intermittent right scapular pain that last only a few minutes, but denies this pain at this time. Family History: Unchanged from Admission Social History: Unchanged from Admission Past Medical History: Unchanged from Admission Objective Active Medications: Acetaminophen (Tylenol Tab*) 650 mg PO Q6H PRN PRN Reason: FEVER/PAIN Last Admin: 06/01/17 20:27 Dose: 650 mg Aspirin (Aspirin Ec Low Dose*) 162 mg PO DAILY [facility] Last Admin: 06/02/17 11:33 Dose: 162 mg Atorvastatin Calcium (Lipitor*) 10 mg PO DAILY [facility] Last Admin: 06/02/17 11:34 Dose: 10 mg Clonazepam (Klonopin Tab(*)) 0.5 mg PO Q8HR PRN PRN Reason: ANXIETY Last Admin: 06/01/17 22:42 Dose: 0.5 mg Docusate Sodium (Colace Cap*) 100 mg PO BID [facility] Last Admin: 06/02/17 11:33 Dose: 100 mg Enoxaparin Sodium (Lovenox(*)) 40 mg SUBCUT Q24HR [facility] Last Admin: 06/02/17 11:33 Dose: 40 mg Gabapentin (Neurontin Cap(*)) 200 mg PO TID PRN PRN Reason: PAIN Last Admin: 05/30/17 01:45 Dose: 200 mg Ceftriaxone Sodium 1,000 mg/ (Sodium Chloride) 50 mls @ 200 mls/hr IVPB Q24H [facility] Stop: 06/02/17 21:59 Last Admin: 06/01/17 22:15 Dose: 200 mls/hr Azithromycin 500 mg/ Sodium (Chloride) 250 mls @ 250 mls/hr IVPB Q24H [facility] Last Admin: 06/01/17 20:28 Dose: 250 mls/hr Ceftriaxone Sodium 1,000 mg/ (Ster[place]) 10 mls @ 40 mls/hr IVPB Q24H [facility] Levofloxacin (Levaquin Tab*) 750 mg PO Q24H [facility] Last Admin: 06/02/17 11:33 Dose: 750 mg Melatonin (Melatonin (Nf)) 6 mg PO BEDTIME PRN; Protocol PRN Reason: Sleep Last Admin: 06/01/17 22:42 Dose: 6 mg Omeprazole (Prilosec Cap*) 20 mg PO EVERY OTHER DAY@0730 [facility] Last Admin: 06/01/17 08:08 Dose: 20 mg Oxycodone HCl (Roxycodone Tab*) 10 mg PO Q4H PRN PRN Reason: PAIN Last Admin: 06/02/17 05:47 Dose: 10 mg Polyethylene Glycol/Electrolytes (Miralax*) 17 gm PO DAILY PRN PRN Reason: CONSTIPATION Last Admin: 06/01/17 22:15 Dose: 17 gm Psyllium Hydrophilic Mucilloid (Metamucil Rob*) 1 pkt PO BID [facility] Last Admin: 06/02/17 11:33 Dose: 1 pkt Vital Signs - 8 hr 06/02/17 06/02/17 06/02/17 05:47 07:26 09:48 Temperature 98.8 F Pulse Rate 87 Respiratory 16 16 16 Rate Blood Pressure 98/52 (mmHg) O2 Sat by Pulse 97 Oximetry Oxygen Devices in Use Now: None Appearance: appears comfortabel siting in the bed Eyes: No Scleral Icterus Ears/Nose/Mouth/Throat: Clear Oropharnyx, Mucous Membranes Moist Neck: NL Appearance and Movements; NL JVP, Trachea Midline Respiratory: Symmetrical Chest Expansion and Respiratory Effort, - - left lung clear, few rhonchi in the right base Cardiovascular: NL Sounds; No Murmurs; No JVD Abdominal: NL Sounds; No Tenderness; No Distention Extremities: No Clubbing, Cyanosis, - - lower extremities + 2 pitting edema bilat~ chronic Skin: No Rash or Ulcers Neurological: Alert and Oriented x 3 Result Diagrams: 06/02/17 06:16 05/31/17 05:38 Microbiology and Other Data: Microbiology 05/29/17 23:12 Nasal Screen MRSA (PCR)(NILSA) - Final Nasal Mrsa Not Detected Assess/Plan/Problems-Billing Assessment: Mr. Bagley is an 86 y.o male that presented to the emergency room for a transient episode of shortness of breath. Patient was found to have worsening PNA, Patient is currently residing at [facility] and wishes not to return to that facility. - Patient Problems (1) PNA (pneumonia) Current Visit: No Status: Acute Code(s): J18.9 - PNEUMONIA, UNSPECIFIED ORGANISM SNOMED Code(s): 816519424 Comment: ~ cxr showed worsening PNA on admission repeat chest x ray showed right pleural effusion and improved aeration ~ will continue ceftriaxone and azithromycin Levaquin d/c'd ~ d/t symptoms of continued SOB CTA of the chest was completed~ showed large pleural effusion ~ consulted pulmonology for further recommendations~pending ~ Continue o2 as needed ~ blood cultures- no growth 3 day (2) Stage II pressure ulcer of buttock Current Visit: No Status: Acute Code(s): L89.302 - PRESSURE ULCER OF UNSPECIFIED BUTTOCK, STAGE 2 SNOMED Code(s): 77633154154577216 Comment: - Turn and position - Continue medihoney cream if dressing not in place (3) CAD (coronary artery disease) Current Visit: No Status: Chronic Code(s): I25.10 - ATHSCL HEART DISEASE OF [place] CORONARY ARTERY W/O ANG PCTRS SNOMED Code(s): 66707170 Comment: - Continue ASA and statin (4) GERD (gastroesophageal reflux disease) Current Visit: No Status: Chronic Code(s): K21.9 - GASTRO-ESOPHAGEAL REFLUX DISEASE WITHOUT ESOPHAGITIS SNOMED Code(s): 303358156 Comment: - Continue omeprazole. (5) DVT prophylaxis Current Visit: No Status: Acute Code(s): XFS0365 - SNOMED Code(s): 489082051 Comment: Yoly (6) DNR (do not resuscitate) Current Visit: No Status: Acute Status and Disposition: inpatient ~ consult case management as patient does not want to return to [facility] for rehab
[2017-06-02] MEDS: Azithromycin IV(*) 500 MG in NS 0.9% 250 ML* 250 ML IVPB SCH (20:57)
[2017-06-02] MEDS: Acetaminophen TAB* 325 MG PO PRN (21:08)
[2017-06-02] MEDS: cefTRIAXone 1000 MG SYRINGE IVPB Q24H IVPB SCH ×2 (22:41)
[2017-06-02] MEDS: Polyethylene Glycol 3350* 17 GM PACKET PO PRN (23:18)
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
[2017-06-03] MEDS: oxyCODONE TAB* 5 MG TAB PO PRN ×4 (01:36→19:56)
[2017-06-03] MEDS: CMCS:Melatonin (NF) 3 MG TAB PO PRN (01:42)
[2017-06-03] MEDS: Enoxaparin(*) 40 MG/0.4 ML SYR SUBCUT SCH (07:25)
[2017-06-03] MEDS: Omeprazole CAP* 20 MG PO SCH (07:43)
[2017-06-03] MEDS: Docusate CAP* 100 MG PO SCH ×2 (09:25→19:56)
[2017-06-03] MEDS: Atorvastatin* 10 MG TAB PO SCH (09:25)
[2017-06-03] MEDS: Aspirin EC Low Dose* 81 MG TAB.EC PO SCH (09:25)
[2017-06-03] MEDS: Psyllium PAK PO SCH ×2 (09:25→20:08)
--- NOTE | 2017-06-03 09:33 | PN ---
Subjective Date of Service: 06/03/17 Interval History: Reports 1 episode brief of shortness of breath. Denies any shortness of breath at this time. Denies chest pain, or abd pain. denies n/v/d. states no further episodes of right scapular pain. Family History: Unchanged from Admission Social History: Unchanged from Admission Past Medical History: Unchanged from Admission Objective Active Medications: Acetaminophen (Tylenol Tab*) 650 mg PO Q6H PRN PRN Reason: FEVER/PAIN Last Admin: 06/02/17 21:08 Dose: 650 mg Aspirin (Aspirin Ec Low Dose*) 162 mg PO DAILY [facility] Last Admin: 06/03/17 09:25 Dose: 162 mg Atorvastatin Calcium (Lipitor*) 10 mg PO DAILY [facility] Last Admin: 06/03/17 09:25 Dose: 10 mg Clonazepam (Klonopin Tab(*)) 0.5 mg PO Q8HR PRN PRN Reason: ANXIETY Last Admin: 06/01/17 22:42 Dose: 0.5 mg Docusate Sodium (Colace Cap*) 100 mg PO BID [facility] Last Admin: 06/03/17 09:25 Dose: 100 mg Enoxaparin Sodium (Lovenox(*)) 40 mg SUBCUT Q24HR [facility] Last Admin: 06/03/17 07:25 Dose: Not Given Gabapentin (Neurontin Cap(*)) 200 mg PO TID PRN PRN Reason: PAIN Last Admin: 05/30/17 01:45 Dose: 200 mg Azithromycin 500 mg/ Sodium (Chloride) 250 mls @ 250 mls/hr IVPB Q24H [facility] Last Admin: 06/02/17 20:57 Dose: 250 mls/hr Ceftriaxone Sodium 1,000 mg/ (Sterile Water) 10 mls @ 40 mls/hr IVPB Q24H [facility] Last Admin: 06/02/17 22:41 Dose: 40 mls/hr Melatonin (Melatonin (Nf)) 6 mg PO BEDTIME PRN; Protocol PRN Reason: Sleep Last Admin: 06/03/17 01:42 Dose: 6 mg Omeprazole (Prilosec Cap*) 20 mg PO EVERY OTHER DAY@0730 [facility] Last Admin: 06/03/17 07:43 Dose: 20 mg Oxycodone HCl (Roxycodone Tab*) 10 mg PO Q4H PRN PRN Reason: PAIN Last Admin: 06/03/17 06:23 Dose: 10 mg Polyethylene Glycol/Electrolytes (Miralax*) 17 gm PO DAILY PRN PRN Reason: CONSTIPATION Last Admin: 06/02/17 23:18 Dose: 17 gm Psyllium Hydrophilic Mucilloid (Metamucil Rob*) 1 pkt PO BID [facility] Last Admin: 06/03/17 09:25 Dose: 1 pkt Vital Signs - 8 hr 06/03/17 06/03/17 06/03/17 01:36 03:22 06:23 Temperature 98.3 F Pulse Rate 84 Respiratory 20 18 18 Rate Blood Pressure 116/73 (mmHg) O2 Sat by Pulse 93 Oximetry 06/03/17 06/03/17 07:20 08:00 Temperature 97.5 F Pulse Rate 78 Respiratory 16 18 Rate Blood Pressure 105/66 (mmHg) O2 Sat by Pulse 94 94 Oximetry Oxygen Devices in Use Now: None Appearance: appears comfortable sitting in the bed. Eyes: No Scleral Icterus Ears/Nose/Mouth/Throat: Clear Oropharnyx, Mucous Membranes Moist Neck: NL Appearance and Movements; NL JVP, Trachea Midline Respiratory: Symmetrical Chest Expansion and Respiratory Effort, - - right base with crackles Cardiovascular: NL Sounds; No Murmurs; No JVD Abdominal: NL Sounds; No Tenderness; No Distention Skin: - - dressing intect to coccyx and lower back. stage 2 pressure ulcer to coccyx Neurological: Alert and Oriented x 3 Nutrition: Taking PO's Result Diagrams: 06/02/17 06:16 18 05:38 Microbiology and Other Data: Microbiology 05/29/17 23:12 Nasal Screen MRSA (PCR)(NILSA) - Final Nasal Mrsa Not Detected Assess/Plan/Problems-Billing Assessment: Mr. Bagley is an 86 y.o male that presented to the emergency room for a transient episode of shortness of breath. Patient was found to have worsening PNA, Patient is currently residing at [facility] and wishes not to return to that facility. - Patient Problems (1) PNA (pneumonia) Current Visit: No Status: Acute Code(s): J18.9 - PNEUMONIA, UNSPECIFIED ORGANISM SNOMED Code(s): 417067709 Comment: ~ cxr showed worsening PNA on admission repeat chest x ray showed right pleural effusion and improved aeration ~ will continue ceftriaxone ~azithromycin d/c'd after todays dose ~ which will be 5 days ~ d/t symptoms of continued SOB CTA of the chest was completed~ showed large pleural effusion ~ consulted pulmonology for further recommendations~thoracentesis scheduled for today~ drained 1 liter or cloudy fluid~ continue ceftriaxone ~ cultures pending ~ Continue o2 as needed ~ blood cultures- no growth 5 day (2) Pleural effusion Current Visit: Yes Status: Acute Code(s): J90 - PLEURAL EFFUSION, NOT ELSEWHERE CLASSIFIED SNOMED Code(s): 18112958 Comment: Large right pleural effusion Thoracentesis today (3) Stage II pressure ulcer of buttock Current Visit: No Status: Acute Code(s): L89.302 - PRESSURE ULCER OF UNSPECIFIED BUTTOCK, STAGE 2 SNOMED Code(s): 39027589976119473 Comment: - Turn and position - Continue medihoney cream if dressing not in place (4) CAD (coronary artery disease) Current Visit: No Status: Chronic Code(s): I25.10 - ATHSCL HEART DISEASE OF [place] CORONARY ARTERY W/O ANG PCTRS SNOMED Code(s): 01699495 Comment: - Continue ASA and statin (5) GERD (gastroesophageal reflux disease) Current Visit: No Status: Chronic Code(s): K21.9 - GASTRO-ESOPHAGEAL REFLUX DISEASE WITHOUT ESOPHAGITIS SNOMED Code(s): 516684856 Comment: - Continue omeprazole. (6) DVT prophylaxis Current Visit: No Status: Acute Code(s): MXO3431 - SNOMED Code(s): 504462868 Comment: Lovenox (7) DNR (do not resuscitate) Current Visit: No Status: Acute Status and Disposition: inpatient ~ consult case management as patient does not want to return to [facility] for rehab~ other places pending
--- NOTE | 2017-06-03 14:15 | RAD ---
INDICATION: Ultrasound assessment to facilitate thoracentesis. COMPARISON: Comparison is made with a prior CT angiogram of the chest from May 31, 2017. TECHNIQUE: Multiple real-time images of the chest on the right side were obtained. FINDINGS: There is a large left pleural effusion. A site on the posterior lower right chest wall was marked for a thoracentesis to follow. IMPRESSION: LARGE RIGHT PLEURAL EFFUSION SITE MARKED FOR THORACENTESIS.
[2017-06-03] MEDS: Acetaminophen TAB* 325 MG PO PRN ×2 (15:09→21:22)
--- NOTE | 2017-06-03 15:23 | RAD ---
INDICATION: Status post thoracentesis evaluate for pneumothorax. COMPARISON: Comparison is made with prior chest x-ray study from May 31, 2017. TECHNIQUE: A portable view of the chest was obtained. FINDINGS: The heart is within normal limits in size. The lungs are underinflated. There are small infiltrates present in the right upper lobe and at the right lung base which are improved. There is been interval resolution of the previously noted right pleural effusion. No pneumothorax is seen. IMPRESSION: 1. STATUS POST THORACENTESIS, NO EVIDENCE FOR PNEUMOTHORAX. 2. SMALL RIGHT LUNG INFILTRATES.
--- NOTE | 2017-06-03 15:33 | PN ---
Progress Note - Progress Note Date of Service: 06/03/17 - Pulm f/u note Note: Pt seen and examined at bedside. Pt denies new complaints. Denies signficant dyspnea. Active Medications Generic Name Dose Route Start Last Admin Trade Name Freq PRN Reason Stop Dose Admin Acetaminophen 650 mg 05/30/17 01:08 06/03/17 15:09 Tylenol Tab* PO 650 mg Q6H PRN Administration FEVER/PAIN Aspirin 162 mg 05/30/17 09:00 06/03/17 09:25 Aspirin Ec Low Dose* PO 162 mg DAILY [facility] Administration Atorvastatin Calcium 10 mg 05/30/17 09:00 06/03/17 09:25 Lipitor* PO 10 mg DAILY [facility] Administration Clonazepam 0.5 mg 05/30/17 01:06 06/01/17 22:42 Klonopin Tab(*) PO 0.5 mg Q8HR PRN Administration ANXIETY Docusate Sodium 100 mg 05/30/17 09:00 06/03/17 09:25 Colace Cap* PO 100 mg BID [facility] Administration Enoxaparin Sodium 40 mg 05/30/17 09:00 06/03/17 07:25 Lovenox(*) SUBCUT Not Given Q24HR [facility] Gabapentin 200 mg 05/30/17 01:06 05/30/17 01:45 Neurontin Cap(*) PO 200 mg TID PRN Administration PAIN Ceftriaxone Sodium 1,000 mg/ 10 mls @ 40 mls/hr 06/02/17 22:00 06/02/17 22:41 Sterile Water IVPB 40 mls/hr Q24H [facility] Administration Azithromycin 500 mg/ Dextrose 250 mls @ 250 mls/hr 06/03/17 21:00 IVPB 06/03/17 21:59 Q24H [facility] Melatonin 6 mg 05/30/17 01:08 06/03/17 01:42 Melatonin (Nf) PO 6 mg BEDTIME PRN Administration Sleep Protocol Omeprazole 20 mg 05/30/17 07:30 06/03/17 07:43 Prilosec Cap* PO 20 mg EVERY OTHER DAY@0730 [facility] Administration Oxycodone HCl 10 mg 05/30/17 01:06 06/03/17 15:09 Roxycodone Tab* PO 10 mg Q4H PRN Administration PAIN Polyethylene Glycol/Electrolytes 17 gm 05/30/17 15:36 06/02/17 23:18 Miralax* PO 17 gm DAILY PRN Administration CONSTIPATION Psyllium Hydrophilic Mucilloid 1 pkt 05/30/17 09:00 06/03/17 09:25 Metamucil Rob* PO 1 pkt BID [facility] Administration Vital Signs Temp Pulse Resp BP Pulse Ox 97.5 F 78 18 105/66 94 06/03/17 07:20 06/03/17 07:20 06/03/17 15:09 06/03/17 07:20 06/03/17 09:47 Gen: Lying comfortable in the bed. HEENT: No Scleral Icterus, Mucous Membranes Moist Neck: Supple, trachea Midline Respiratory: Clear to auscultation, crackles at rt base Cardiovascular: S1, S2+, No JVD Abdominal: Soft, BS+, NT, ND Skin: Stage 2 pressure ulcer to coccyx, dressing intact Neurological: Alert and Oriented x 3 Mr. Bagley is an 86 y.o male that presented to the emergency room for a transient episode of shortness of breath. Patient was found to have worsening PNA, Patient is currently residing at [facility] and wishes not to return to that facility. 86 y o m, recently treated for PNA, readmitted for SOB, cxr showed worsening PNA and right pleural effusion. CT chest showed large effusion on rt side, rt base atelectasis, RUL PNA. S/p thoracenteis today, 1L of cloudy fluid removed, sent to lab for biochemical , hemotologial and microbiological testing Fluid was also sent for cytology c/w ceftriaxone, azithromycin day #5/[address] fluid results D/w Nika Gibbs NP
[2017-06-03] MEDS: Polyethylene Glycol 3350* 17 GM PACKET PO PRN (20:08)
[2017-06-03] MEDS ORDERED: Azithromycin IV(*) 500 MG in D5W 250 ML BAG* 250 ML IVPB SCH (21:00)
[2017-06-03] MEDS: cefTRIAXone 1000 MG SYRINGE IVPB Q24H IVPB SCH ×2 (21:23)
[2017-06-04] MEDS: CMCS:Melatonin (NF) 3 MG TAB PO PRN (00:04)
[2017-06-04] MEDS: Gabapentin CAP(*) 100 MG PO PRN (00:29)
[2017-06-04] MEDS: oxyCODONE TAB* 5 MG TAB PO PRN (00:30)
[2017-06-04] MEDS: Docusate CAP* 100 MG PO SCH (08:50)
[2017-06-04] MEDS: Aspirin EC Low Dose* 81 MG TAB.EC PO SCH (08:50)
[2017-06-04] MEDS: Atorvastatin* 10 MG TAB PO SCH (08:50)
[2017-06-04] MEDS: Psyllium PAK PO SCH (08:50)
[2017-06-04] MEDS: Enoxaparin(*) 40 MG/0.4 ML SYR SUBCUT SCH (08:50)
--- NOTE | 2017-06-04 10:12 | PN ---
Subjective Date of Service: 06/04/17 Interval History: Patient seen and examined at bedside. Denies fever, chills, shortness of breath , chest discomfort, N/V/D. Family History: Unchanged from Admission Social History: Unchanged from Admission Past Medical History: Unchanged from Admission Objective Active Medications: Acetaminophen (Tylenol Tab*) 650 mg PO Q6H PRN Reason: FEVER/PAIN Aspirin (Aspirin Ec Low Dose*) 162 mg PO DAILY [facility] Atorvastatin Calcium (Lipitor*) 10 mg PO DAILY [facility] Clonazepam (Klonopin Tab(*)) 0.5 mg PO Q8HR PRN Reason: ANXIETY Docusate Sodium (Colace Cap*) 100 mg PO BID [facility] Enoxaparin Sodium (Lovenox(*)) 40 mg SUBCUT Q24HR [facility] Gabapentin (Neurontin Cap(*)) 200 mg PO TID PRN Reason: PAIN Ceftriaxone Sodium 1,000 mg/ (Sterile Water) 10 mls @ 40 mls/hr IVPB Q24H [facility] Melatonin (Melatonin (Nf)) 6 mg PO BEDTIME PRN; Protocol Reason: Sleep Omeprazole (Prilosec Cap*) 20 mg PO EVERY OTHER DAY@0730 [facility] Oxycodone HCl (Roxycodone Tab*) 10 mg PO Q4H PRN Reason: PAIN Polyethylene Glycol/Electrolytes (Miralax*) 17 gm PO DAILY PRN Reason: CONSTIPATION Psyllium Hydrophilic Mucilloid (Metamucil Rob*) 1 pkt PO BID [facility] Vital Signs - 8 hr 06/04/17 06/04/17 06/04/17 04:01 04:34 07:29 Temperature 97.6 F 97.3 F Pulse Rate 83 78 Respiratory 17 16 20 Rate Blood Pressure 101/57 110/46 (mmHg) O2 Sat by Pulse 98 93 Oximetry 06/04/17 07:54 Temperature Pulse Rate Respiratory 16 Rate Blood Pressure (mmHg) O2 Sat by Pulse 98 Oximetry Oxygen Devices in Use Now: None Appearance: NAD, laying in bed Ears/Nose/Mouth/Throat: Mucous Membranes Moist Respiratory: Symmetrical Chest Expansion and Respiratory Effort, Clear to Auscultation - , few crackles in the right LL Cardiovascular: NL Sounds; No Murmurs; No JVD, RRR Abdominal: NL Sounds; No Tenderness; No Distention Extremities: No Edema Skin: - - Stage 2 pressure injury to the buttocks (this was not observed today) Neurological: Alert and Oriented x 3 Lines/Tubes/Other Access: Clean, Dry and Intact Peripheral IV - site benign Nutrition: Taking PO's Result Diagrams: 06/02/17 06:16 05/31/17 05:38 Microbiology and Other Data: Microbiology 05/29/17 23:12 Nasal Screen MRSA (PCR)(NILSA) - Final Nasal Mrsa Not Detected Assess/Plan/Problems-Billing Assessment: Mr. Bagley is an 86 y.o male that presented to the emergency room for a transient episode of shortness of breath. Patient was found to have worsening PNA. - Patient Problems (1) PNA (pneumonia) Code(s): J18.9 - PNEUMONIA, UNSPECIFIED ORGANISM SNOMED Code(s): 741037658 Comment: - No leukocytosis, afebrile, noted to have thrombocytosis that is improving ( suspect secondary to infection) - cxr showed worsening PNA on admission repeat chest x ray showed right pleural effusion and improved aeration - Blood cultures, no growth day 5 - d/t symptoms of continued SOB CTA of the chest was completed, showing a large pleural effusion - Consulted pulmonology, S/P thoracentesis yesterday (drained 1 liter of cloudy fluid), cultures pending - Continue ceftriaxone , completed course of azithromycin (2) Pleural effusion Code(s): J90 - PLEURAL EFFUSION, NOT ELSEWHERE CLASSIFIED SNOMED Code(s): 54545235 Comment: - Large right pleural effusion - S/P thoracentesis 06/03 (3) Stage II pressure ulcer of buttock Code(s): L89.302 - PRESSURE ULCER OF UNSPECIFIED BUTTOCK, STAGE 2 SNOMED Code( s): 09294792628365894 Comment: - Turn and position - Continue medihoney (4) Anemia Current Visit: No Status: Chronic Code(s): D64.9 - ANEMIA, UNSPECIFIED SNOMED Code(s): 469605452 Comment: - Small decrease since 05/2016 (5) CAD (coronary artery disease) Code(s): I25.10 - ATHSCL HEART DISEASE OF [place] CORONARY ARTERY W/O ANG PCTRS SNOMED Code(s): 44018401 Comment: - Asymptomatic - Continue ASA and statin (6) GERD (gastroesophageal reflux disease) Code(s): K21.9 - GASTRO-ESOPHAGEAL REFLUX DISEASE WITHOUT ESOPHAGITIS SNOMED Code(s): 788805799 Comment: - Continue omeprazole. (7) History of prostate cancer Code(s): Z85.46 - PERSONAL HISTORY OF MALIGNANT NEOPLASM OF PROST[place] SNOMED Code(s): 251514515 Comment: - Not an active issue at this time - Continue to follow-up patient with urology/PCP (8) Neurogenic bowel Code(s): K59.2 - NEUROGENIC BOWEL, NOT ELSEWHERE CLASSIFIED SNOMED Code(s): 572610540 Comment: - Continue fiber regimen, miralax, and MOM (9) Neuropathic pain Comment: - Chronic pain at baseline - Continue oxycodone PRN, tylenol PRN, and clonazepam PRN (10) DVT prophylaxis Code(s): VMZ0189 - SNOMED Code(s): 511280433 Comment: - Lovenox (11) DNR (do not resuscitate) Status and Disposition: Inpatient. Stable for discharge to [facility] today.
[2017-06-04 11:28] VITALS: BP 112/54
--- NOTE | 2017-06-04 12:52 | PRO ---
THORACENTESIS REPORT: DATE OF PROCEDURE: 06/03/17 PROCEDURE PERFORMED: Thoracentesis with ultrasound guidance on the right side. PREPROCEDURAL DIAGNOSIS: Large right pleural effusion. INDICATION FOR PROCEDURE: Diagnostic and therapeutic. POSTPROCEDURAL DIAGNOSIS: Large right pleural effusion. ANESTHESIA: Local anesthesia with 1% lidocaine 4 cc. DESCRIPTION OF PROCEDURE: Informed consent was obtained from the patient prior to the procedure after all the risks and benefits of the procedure including risk of pneumothorax was thoroughly discussed. The patient was sitting up and leaning forwards. A portable ultrasound was utilized at bedside to localize large amounts of the fluid on right side. Site was marked with skin marker. Area was sterilized with chlorhexidine. Strict aseptic precautions were followed. An 8-[place] CareFusion thoracentesis catheter was utilized at bedside. Lidocaine was instilled intradermally subcutaneously down into the pleural space taking precautions. Stab incision was made in the back with #11 scalpel blade. CareFusion 8-[place] thoracentesis catheter was then inserted manually taking precautions. Catheter was left in place and needle was removed. 1.1 L of dark blood-tinged fluid was drained under manual suction. Fluid was sent into the lab for microbiological and hematological examination. The patient tolerated the procedure well. Postprocedure chest x-ray was ordered and verified by me. No evidence of pneumothorax was noted. The patient was stable during and after the procedure. [id number] #: [id number] [facility]
--- NOTE | 2017-06-04 12:54 | PN ---
Progress Note - Progress Note Date of Service: 06/04/17 - Pulm f/u note Note: Pt seen and examined at bedside. Pt reports feeling better. Denies any chest discomfort Active Medications Generic Name Dose Route Start Last Admin Trade Name Freq PRN Reason Stop Dose Admin Acetaminophen 650 mg 05/30/17 01:08 06/03/17 21:22 Tylenol Tab* PO 650 mg Q6H PRN Administration FEVER/PAIN Aspirin 162 mg 05/30/17 09:00 06/04/17 08:50 Aspirin Ec Low Dose* PO 162 mg DAILY [facility] Administration Atorvastatin Calcium 10 mg 05/30/17 09:00 06/04/17 08:50 Lipitor* PO 10 mg DAILY [facility] Administration Clonazepam 0.5 mg 05/30/17 01:06 06/01/17 22:42 Klonopin Tab(*) PO 0.5 mg Q8HR PRN Administration ANXIETY Docusate Sodium 100 mg 05/30/17 09:00 06/04/17 08:50 Colace Cap* PO 100 mg BID [facility] Administration Enoxaparin Sodium 40 mg 05/30/17 09:00 06/04/17 08:50 Lovenox(*) SUBCUT 40 mg Q24HR [facility] Administration Gabapentin 200 mg 05/30/17 01:06 06/04/17 00:29 Neurontin Cap(*) PO 200 mg TID PRN Administration PAIN Ceftriaxone Sodium 1,000 mg/ 10 mls @ 40 mls/hr 06/02/17 22:00 06/03/17 21:23 Sterile Water IVPB 40 mls/hr Q24H [facility] Administration Melatonin 6 mg 05/30/17 01:08 06/04/17 00:04 Melatonin (Nf) PO 6 mg BEDTIME PRN Administration Sleep Protocol Omeprazole 20 mg 05/30/17 07:30 06/03/17 07:43 Prilosec Cap* PO 20 mg EVERY OTHER DAY@0730 [facility] Administration Oxycodone HCl 10 mg 05/30/17 01:06 06/04/17 00:30 Roxycodone Tab* PO 10 mg Q4H PRN Administration PAIN Polyethylene Glycol/Electrolytes 17 gm 05/30/17 15:36 06/03/17 20:08 Miralax* PO 17 gm DAILY PRN Administration CONSTIPATION Psyllium Hydrophilic Mucilloid 1 pkt 05/30/17 09:00 06/04/17 08:50 Metamucil Rob* PO 1 pkt BID [facility] Administration Vital Signs Temp Pulse Resp BP Pulse Ox 95.9 F 78 16 112/54 97 06/04/17 11:26 06/04/17 11:04 06/04/17 07:54 06/04/17 11:04 06/04/17 11:04 Gen: Pt in NAD, comfortable in bed HEENT: No Scleral Icterus, mucous membranes moist Neck: Supple, trachea Midline, No JVD Respiratory: Crackles at rt base Cardiovascular: S1, S2+, No JVD Abdominal: Soft, BS+, NT, ND Skin: Stage 2 pressure ulcer to coccyx, dressing intact Neurological: Alert and Oriented x 3 Laboratory Results - last 24 hr 06/03/17 14:10 Fluid Source Pleural fluid Fluid Volume 8 Fluid Color Rupali Fluid Appearance Cloudy Fluid WBC 1251 Fluid RBC 8157 Fluid Tot Cell Count 100 Fluid Neutrophils 75 Fluid Lymphocytes 12 Fluid Monocytes 13 Mr. Bagley is an 86 y.o male that presented to the emergency room for a transient episode of shortness of breath. Patient was found to have worsening PNA, Patient is currently residing at [facility] and wishes not to return to that facility. 86 y o m, recently treated for PNA, readmitted for SOB, cxr showed worsening PNA and right pleural effusion. CT chest showed large effusion on rt side, rt base atelectasis, RUL PNA. S/p thoracenteis 06/03/17, 1L of cloudy fluid removed, sent to lab for biochemical, hemotologial and microbiological testing Fluid was also sent for cytology, results pending Neutrophil predominant fluid seen On ceftriaxone, can d/c on cefdinir for 1 week D/w Yoly Mckinnon NP
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
== END 2017-06-04 16:35 | DRG 194 ==
LOC: ED 20:05 → MED 22:20
PROVIDERS: ADMIT Hospitalist; ATTEND Internal Medicine
PROC: 0W993ZZ Drainage of Right Pleural Cavity, Percutaneous Approach (ICD-10-PCS; principal; 2017-06-03)
DX: J18.9 Pneumonia, unspecified organism (principal); K59.2 Neurogenic bowel, not elsewhere classified; L89.312 Pressure ulcer of right buttock, stage 2; M84.454A Pathological fracture, pelvis, initial encounter for fracture; L89.322 Pressure ulcer of left buttock, stage 2; J90 Pleural effusion, not elsewhere classified; M86.8X8 Other osteomyelitis, other site; N31.9 Neuromuscular dysfunction of bladder, unspecified; D64.9 Anemia, unspecified; E03.9 Hypothyroidism, unspecified; E78.5 Hyperlipidemia, unspecified; G89.29 Other chronic pain; I25.10 Atherosclerotic heart disease of native coronary artery without angina pectoris; J32.9 Chronic sinusitis, unspecified; K21.9 Gastro-esophageal reflux disease without esophagitis; M19.90 Unspecified osteoarthritis, unspecified site; M54.30 Sciatica, unspecified side; H91.90 Unspecified hearing loss, unspecified ear; Z66 Do not resuscitate; K59.09 Other constipation; R29.6 Repeated falls; D47.3 Essential (hemorrhagic) thrombocythemia; N39.498 Other specified urinary incontinence; Z87.440 Personal history of urinary (tract) infections; Z89.422 Acquired absence of other left toe(s); Z97.4 Presence of external hearing-aid; Z98.1 Arthrodesis status; Z87.891 Personal history of nicotine dependence; Z72.89 Other problems related to lifestyle; Z88.1 Allergy status to other antibiotic agents; Z88.8 Allergy status to other drugs, medicaments and biological substances; Z95.5 Presence of coronary angioplasty implant and graft; Z86.711 Personal history of pulmonary embolism; Z85.46 Personal history of malignant neoplasm of prostate; Z90.79 Acquired absence of other genital organ(s); Z82.3 Family history of stroke; Z80.42 Family history of malignant neoplasm of prostate; Z82.49 Family history of ischemic heart disease and other diseases of the circulatory system; Z79.82 Long term (current) use of aspirin
CPT/HCPCS: 36415; 71045; 71046; 71275; 76604; 80048; 80053; 81003; 82945; 83605; 83986; 84157; 84484; 85025; 85610; 85730; 86140; 87040; 87205; 87641; 88112; 89051; 99284; A9270-GY; G8978-GP-CJ; G8978-GP-CK; G8979-GP-CI; G8987-GO-CM; G8988-GO-CI; J0456; J0696; J1650; Q9967

== ENCOUNTER 2018-06-10 23:00 | Emergency (ER) | payer MEDICARE, OTHER ==
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
[2018-06-11 00:05] LABS: ABS Basophils 0 10^3/ul (0-0.2); ABS Eosinophils 0.1 10^3/ul (0-0.6); ABS Lymphocytes 0.6 10^3/ul (1.0-4.8); ABS Monocytes 0.9 10^3/ul (0-0.8); ABS Neutrophils 4.5 10^3/ul (1.5-7.7); ABS Nucleated RBC 0 10^3/ul; Eosinophil % 0.8 %; Hematocrit 39 % (36-46); Hemoglobin 13.1 g/dL (14.0-18.0); Lymphocyte % 9.5 %; Mean Corpuscular HGB Conc 34 g/dL (31-36); Mean Corpuscular Hemoglobin 33 pg (27-31); Mean Corpuscular Volume 97 fL (80-94); Mean Platelet Volume 8.3 fL (7.4-10.4); Nucleated Red Blood Cells % 0; Platelet Count 160 10^3/uL (150-450); Red Blood Count 4.03 10^6 /uL (4.18-5.48); Red Cell Distribution Width 16 % (10.5-15); White Blood Count 6.1 10^3/uL (3.5-10.8)
[2018-06-11 00:25] LABS: Albumin/Globulin Ratio 1.5 (1-3); BUN/Creatinine Ratio 28.9 (8-20); C Reactive Protein 1.03 mg/L (<8.01); Calcium 9.3 mg/dL (8.6-10.3); EGFR African American 117.9 (>60); EGFR Non-African American 97.5 (>60); Globulin 2.6 g/dL (2-4); Potassium 4.3 mmol/L (3.5-5.0); Total Bilirubin 0.5 mg/dL (0.2-1.0); Total Protein 6.6 g/dL (6.4-8.9)
[2018-06-11 00:27] LABS: Troponin I 0.01 ng/mL (<0.04)
[2018-06-11 00:30] LABS: Activated Partial Thrombo Time 28.8 seconds (26.0-36.3); INR 0.84 (0.77-1.02)
[2018-06-11] MEDS ORDERED: Iohexol 350* (CONTRAST) 500 ML MDV IV ONE (00:49)
[2018-06-11 02:23] VITALS: BP 159/70
== END 2018-06-11 02:43 | disposition home or self-care (01) ==
LOC: ED 23:00
DX: R06.02 Shortness of breath (principal); Z88.0 Allergy status to penicillin; Z87.891 Personal history of nicotine dependence; R60.9 Edema, unspecified
CPT/HCPCS: 36415; 71275; 80053; 83880; 84484; 85025; 85610; 85730; 86140; 93005; 99283; Q9967

== ENCOUNTER 2018-06-28 21:32 | Emergency (ER) | payer MEDICARE, OTHER ==
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
[2018-06-28 22:29] LABS: ABS Basophils 0 10^3/ul (0-0.2); ABS Eosinophils 0 10^3/ul (0-0.6); ABS Lymphocytes 0.6 10^3/ul (1.0-4.8); ABS Monocytes 0.9 10^3/ul (0-0.8); ABS Neutrophils 5.1 10^3/ul (1.5-7.7); ABS Nucleated RBC 0 10^3/ul; Eosinophil % 0.6 %; Hematocrit 37 % (36-46); Hemoglobin 12.4 g/dL (14.0-18.0); Lymphocyte % 8.8 %; Mean Corpuscular HGB Conc 34 g/dL (31-36); Mean Corpuscular Hemoglobin 33 pg (27-31); Mean Corpuscular Volume 97 fL (80-94); Mean Platelet Volume 7.7 fL (7.4-10.4); Nucleated Red Blood Cells % 0; Platelet Count 174 10^3/uL (150-450); Red Blood Count 3.81 10^6 /uL (4.18-5.48); Red Cell Distribution Width 15 % (10.5-15); White Blood Count 6.7 10^3/uL (3.5-10.8)
[2018-06-28 22:36] LABS: Activated Partial Thrombo Time 28.5 seconds (26.0-36.3); INR 0.8 (0.77-1.02)
[2018-06-28 22:47] LABS: ALT 19 U/L (7-52); AST 28 U/L (13-39); Albumin 3.9 g/dL (3.2-5.2); Albumin/Globulin Ratio 1.4 (1-3); Alkaline Phosphatase 66 U/L (34-104); Anion Gap 4 mmol/L (2-11); BUN/Creatinine Ratio 25.3 (8-20); Blood Urea Nitrogen 20 mg/dL (6-24); CO2 Carbon Dioxide 30 mmol/L (22-32); Calcium 9.4 mg/dL (8.6-10.3); Chloride 103 mmol/L (101-111); EGFR African American 112.8 (>60); EGFR Non-African American 93.2 (>60); Globulin 2.7 g/dL (2-4); Glucose 106 mg/dL (70-100); Magnesium 2.2 mg/dL (1.9-2.7); Potassium 4.9 mmol/L (3.5-5.0); Sodium 137 mmol/L (135-145); Total Protein 6.6 g/dL (6.4-8.9); Troponin I 0.02 ng/mL (<0.04)
[2018-06-28] MEDS ORDERED: Iohexol 350* (CONTRAST) 500 ML MDV IV ONE (23:57)
[2018-06-29 02:40] VITALS: BP 152/84
[2018-07-01 09:49] LABS: C Reactive Protein < 1.00 mg/L (<8.01)
== END 2018-06-29 02:38 | disposition home or self-care (01) ==
LOC: ED 21:32
DX: R07.9 Chest pain, unspecified (principal); K80.20 Calculus of gallbladder without cholecystitis without obstruction; I10 Essential (primary) hypertension; I25.10 Atherosclerotic heart disease of native coronary artery without angina pectoris; D50.9 Iron deficiency anemia, unspecified; J32.8 Other chronic sinusitis; K21.9 Gastro-esophageal reflux disease without esophagitis; Z88.3 Allergy status to other anti-infective agents; Z95.5 Presence of coronary angioplasty implant and graft; Z87.01 Personal history of pneumonia (recurrent); Z86.711 Personal history of pulmonary embolism; Z85.46 Personal history of malignant neoplasm of prostate; Z97.4 Presence of external hearing-aid; Z98.1 Arthrodesis status; Z87.891 Personal history of nicotine dependence
CPT/HCPCS: 36415; 71045; 71275; 80053; 83735; 83880; 84484; 85025; 85379; 85610; 85730; 86140; 93005; 99283; Q9967

== ENCOUNTER 2019-05-08 11:41 | Inpatient (IN) | payer MEDICARE ==
[2019-05-08 12:23] LABS: ABS Lymphocytes 0.3 10^3/ul (1.0-4.8); ABS Monocytes 0.7 10^3/ul (0-0.8); ABS Neutrophils 4.5 10^3/ul (1.5-7.7); Eosinophil % 0.2 %; Hematocrit 21 % (42-52); Lymphocyte % 5.9 %; Mean Corpuscular HGB Conc 34 g/dL (31-36); Mean Corpuscular Hemoglobin 35 pg (27-31); Mean Corpuscular Volume 102 fL (80-94); Mean Platelet Volume 7.8 fL (7.4-10.4); Platelet Count 155 10^3/uL (150-450); Red Blood Count 2.03 10^6 /uL (4.18-5.48); Red Cell Distribution Width 15 % (10-15); White Blood Count 5.6 10^3/uL (3.5-10.8)
[2019-05-08] MEDS ORDERED: HYDROcodone/ACETAMIN 5-325 MG* 1 TAB PO ONE ×2 (12:33→12:58)
[2019-05-08 12:41] LABS: Albumin 3.5 g/dL (3.2-5.2); Calcium 9.3 mg/dL (8.6-10.3); Potassium 4.3 mmol/L (3.5-5.0); Total Bilirubin 0.5 mg/dL (0.2-1.0)
[2019-05-08 12:47] LABS: Albumin/Globulin Ratio 1.8 (1-3); BUN/Creatinine Ratio 71.2 (8-20); EGFR African American 123.3 (>60); EGFR Non-African American 101.9 (>60); Total Protein 5.5 g/dL (6.4-8.9)
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
[2019-05-08] MEDS ORDERED: Ondansetron INJ* 2 MG/ML VIAL IV PRN (14:31)
[2019-05-08] MEDS: Pantoprazole* 80 mg IN NS 80 MG/250 ML BAG IV SCH (16:30)
[2019-05-08] MEDS ORDERED: fentaNYL* 50 MCG/ML 2 ML VIAL (100 MCG VIAL) ONE (16:42)
[2019-05-08] MEDS ORDERED: Midazolam* 1 MG/ML 10 ML VIAL (10 MG) ONE (16:42)
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
--- NOTE | 2019-05-08 18:18 | PN ---
Progress Note - Progress Note Date of Service: 05/08/19 Note: GI Breif EGD Note: E: nml G: old blood. no fresh bleeding. Pyloric channel, small clean based 0.4cm ulcer. D: 2x billiary stents causing bleeding near his anastomosis at D2 1 small lesion with noy arterial squirt. lesionsmall- more like dieulafoy lesion Both stents removed en total with cold snare Dieulafoy lesion treaded with endoclip x2 with no further bleeding. Smaller clean based ulcer had trace ooze- treated with endoclip. No cautery done due to small size and achievement of bleeding control Excellent biliary drainage visualized after stent x2 removal with visualization of large sphincterotomy. Impression Dieulfoy lesion actively bleeding brought on by friction of 2 residual plastic biliary stents s/p removal and hemostasis achievement. Rec: PPI x 72 hours Clears tonight. BID PPI X 3 months Repeat EGD in 3 months time Daily CMP and continue to monitor H/H serially. Kam Baez DO 05/08/19 181
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
--- NOTE | 2019-05-08 19:23 | PRO ---
CC: Dr. Alis Lema * ESOPHAGOGASTRODUODENOSCOPY REPORT: DATE OF PROCEDURE: 05/08/19 - ROOM #415 PRIMARY CARE PHYSICIAN: Dr. Alis Lema. INDICATION FOR PROCEDURE: Acute blood loss anemia. PROCEDURE PERFORMED: Complete esophagogastroduodenoscopy with biliary stent removal x2, and hemostasis of actively bleeding ulcer with Endoclip placement x3. MEDICATIONS GIVEN: Include 9 mg IV midazolam, 25 mcg IV fentanyl. DESCRIPTION OF PROCEDURE: After the EGD procedure, including the risks, benefits, and alternatives with the risks not limited to perforation, surgery, missed lesions, and/or were explained to the patient, written informed consent was obtained, IV medication was given, and a bite-block was placed between the teeth. The adult Olympus gastroscope was then inserted into the patient's oropharynx into the tubular esophagus. Tubular esophagus was normal in appearance. The scope was advanced to the stomach. There was lots of old blood, but no fresh bleeding was noted after washing. A large hiatal hernia was appreciated, but no distinct Sergei's erosion. The scope was then advanced to the pylorus. At the pyloric channel, there was a 0.5 cm clean- based ulcer that was nonbleeding. The scope was advanced into the pylorus into the duodenal bulb and then as we were beginning into the C-loop into D2, two biliary stents were noted with an ulceration just distal where the biliary stents were touching the mucosa and an arterial squirt was visualized from this area. 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 The biliary stents kept touching the Dieulafoy lesion leading to continued active bleeding. The two stents were removed with cold snare entirely. Next, the scope was reintroduced and the Dieulafoy lesion was visualized with an active arterial bleed characteristic of it. Two EndoClips were placed over this area with excellent effect. No further bleeding was noted. A small 0.5 cm ulcer was noted in this area that did have a slight ooze to it. I did place an Endoclip over that with good effect. It was likely again from friction of the biliary stents. At the conclusion of the procedure, no active bleeding was noted. The scope was then removed from the patient. He tolerated the procedure well. He returned to the recovery room in stable condition. IMPRESSION: 1. Complete esophagogastroduodenoscopy. 2. Hemostasis of actively bleeding Dieulafoy lesion secondary to friction of [address] left in place from prior ERCP about a year ago at [facility]. 3. Endoclip placement x3 with excellent effect as above. 4. Small pyloric channel ulcer not contributing to bleed. 5. Postsurgical anatomy after small bowel reanastomosis from D2 to D4. 6. Excellent biliary drainage noted after stent removal with visualization of the large sphincterotomy site. RECOMMENDATIONS: Recommend IV PPI x72 hours total given the atypical nature of these lesions and ulceration. We would recommend a repeat EGD in 3 months' time. I would recommend placing him on b.i.d. PPI therapy for 3 months. Continue to avoid NSAIDs such as Motrin, ibuprofen, and Aleve with the exception of his baby aspirin if at all possible. We would recommend continuing to follow serial H and Hs and recommend a daily CMP. [id number]/[facility] #: [id number] [facility]
[2019-05-08 20:38] LABS: Hematocrit 19 % (42-52); Hemoglobin 6.6 g/dL (14.0-18.0)
[2019-05-08] MEDS: Hydrocodone/Acetamin 10/325 MG 1 TAB PO PRN (21:32)
[2019-05-08] MEDS: Senna TAB 8.6 mg* TAB PO SCH (21:33)
[2019-05-09] MEDS: Hydrocodone/Acetamin 10/325 MG 1 TAB PO PRN ×4 (00:43→21:55)
[2019-05-09 02:54] LABS: Hematocrit 20 % (42-52); Hemoglobin 6.7 g/dL (14.0-18.0)
[2019-05-09] MEDS: Pantoprazole* 80 mg IN NS 80 MG/250 ML BAG IV SCH ×3 (04:34→19:59)
[2019-05-09 06:15] LABS: ABS Lymphocytes 0.9 10^3/ul (1.0-4.8); ABS Neutrophils 2.9 10^3/ul (1.5-7.7); Eosinophil % 0.8 %; Hematocrit 21 % (42-52); Hemoglobin 7.2 g/dL (14.0-18.0); Lymphocyte % 18.1 %; Mean Corpuscular HGB Conc 34 g/dL (31-36); Mean Corpuscular Hemoglobin 34 pg (27-31); Mean Corpuscular Volume 100 fL (80-94); Mean Platelet Volume 8.3 fL (7.4-10.4); Nucleated Red Blood Cells % 0.1; Platelet Count 131 10^3/uL (150-450); Red Cell Distribution Width 18 % (10-15); White Blood Count 4.8 10^3/uL (3.5-10.8)
[2019-05-09 06:40] LABS: Albumin 3.2 g/dL (3.2-5.2); Albumin/Globulin Ratio 1.8 (1-3); BUN/Creatinine Ratio 57.1 (8-20); Calcium 8.8 mg/dL (8.6-10.3); EGFR African American 129.4 (>60); EGFR Non-African American 106.9 (>60); Globulin 1.8 g/dL (2-4); Magnesium 1.9 mg/dL (1.9-2.7); Potassium 4.3 mmol/L (3.5-5.0); Total Bilirubin 0.8 mg/dL (0.2-1.0)
[2019-05-09 07:29] LABS: Hematocrit 19 % (42-52); Hemoglobin 6.6 g/dL (14.0-18.0)
[2019-05-09] MEDS: Atorvastatin* 10 MG TAB PO SCH (07:55)
[2019-05-09] MEDS: Cholecalciferol TAB* 1000 UNITS PO SCH (07:55)
[2019-05-09] MEDS: Cyanocobalamin TAB* 500 MCG PO SCH (07:56)
--- NOTE | 2019-05-09 11:23 | PN ---
Subjective Date of Service: 05/09/19 Interval History: Patient has no complaints this AM. Denies dizziness/lightheadedness when up to chair, chest pain, difficulty breathing, abd pain. Has not had BM today. Denies n/v. Objective Active Medications: Acetaminophen (Tylenol Tab*) 650 mg PO Q6H PRN PRN Reason: MILD PAIN or TEMP > 100.4 Hydrocodone Bitart/Acetaminophen ([place] 10/325 (Nf)) 1 tab PO Q4H PRN PRN Reason: PAIN Last Admin: 05/09/19 07:56 Dose: 1 tab Atorvastatin Calcium (Lipitor*) 10 mg PO DAILY [facility] Last Admin: 05/09/19 07:55 Dose: 10 mg Cholecalciferol (Vitamin D Tab*) 1,000 units PO DAILY [facility] Last Admin: 05/09/19 07:55 Dose: 1,000 units Cyanocobalamin (Vitamin B12 Tab*) 1,000 mcg PO DAILY [facility] Last Admin: 05/09/19 07:56 Dose: 1,000 mcg Pantoprazole Sodium (Protonix Iv Bag*) 80 mg in 250 mls @ 25 mls/hr IV Q10H [facility] Last Admin: 05/09/19 04:34 Dose: 25 mls/hr Ondansetron HCl (Zofran Inj*) 4 mg IV Q6H PRN PRN Reason: NAUSEA Senna (Senokot 8.6 Mg Tab*) 1 tab PO BEDTIME [facility] Last Admin: 05/08/19 21:33 Dose: 1 tab Vital Signs - 8 hr 05/09/19 05/09/19 05/09/19 04:10 07:15 07:56 Temperature 97.9 F 97.7 F Pulse Rate 80 83 Respiratory 16 12 17 Rate Blood Pressure 104/58 111/59 (mmHg) O2 Sat by Pulse 100 99 Oximetry 05/09/19 08:00 Temperature Pulse Rate Respiratory 17 Rate Blood Pressure (mmHg) O2 Sat by Pulse Oximetry Oxygen Devices in Use Now: None Appearance: Elderly white male, laying upright in bed, appearing comfortable and in NAD Eyes: No Scleral Icterus, - - PERRL Ears/Nose/Mouth/Throat: Mucous Membranes Moist Neck: Trachea Midline Respiratory: Symmetrical Chest Expansion and Respiratory Effort, Clear to Auscultation Cardiovascular: NL Sounds; No Murmurs; No JVD, RRR Abdominal: - - abd soft, nontender, nondistneded Extremities: No Edema Skin: No Rash or Ulcers Neurological: Alert and Oriented x 3 Result Diagrams: 05/09/19 07:23 05/09/19 05:51 Additional Lab and Data: Lab Results 05/08/19 05/08/19 05/08/19 Range/Units 12:13 12:13 12:13 WBC 5.6 (3.5-10.8) 10^3/uL RBC 2.03 L (4.18-5.48) 10^6 /uL Hgb 7.0 L (14.0-18.0) g/dL Hct 21 L (42-52) % MCV 102 H (80-94) fL MCH 35 H (27-31) pg MCHC 34 (31-36) g/dL RDW 15 (10-15) % Plt Count 155 (150-450) 10^3/uL MPV 7.8 (7.4-10.4) fL Neut % (Auto) 80.9 % Lymph % (Auto) 5.9 % [place] % (Auto) 12.5 % Eos % (Auto) 0.2 % Baso % (Auto) 0.5 % Absolute Neuts (auto) 4.5 (1.5-7.7) 10^3/ul Absolute Lymphs (auto) 0.3 L (1.0-4.8) 10^3/ul Absolute Monos (auto) 0.7 (0-0.8) 10^3/ul Absolute Eos (auto) 0.0 (0-0.6) 10^3/ul Absolute Basos (auto) 0.0 (0-0.2) 10^3/ul Absolute Nucleated RBC 0.0 10^3/ul Nucleated RBC % 0.0 Sodium 138 (135-145) mmol/L Potassium 4.3 (3.5-5.0) mmol/L Chloride 106 (101-111) mmol/L Carbon Dioxide 28 (22-32) mmol/L Anion Gap 4 (2-11) mmol/L BUN 52 H (6-24) mg/dL Creatinine 0.73 (0.67-1.17) mg/dL Est GFR ( Amer) 123.3 (>60) Est GFR (Non-Af Amer) 101.9 (>60) BUN/Creatinine Ratio 71.2 H (8-20) Glucose 98 (70-100) mg/dL Calcium 9.3 (8.6-10.3) mg/dL Total Bilirubin 0.50 (0.2-1.0) mg/dL AST 14 (13-39) U/L ALT 9 (7-52) U/L Alkaline Phosphatase 38 (34-104) U/L Total Protein 5.5 L (6.4-8.9) g/dL Albumin 3.5 (3.2-5.2) g/dL Globulin 2.0 (2-4) g/dL Albumin/Globulin Ratio 1.8 (1-3) Blood Type A Positive Antibody Screen Negative Crossmatch See Detail Microbiology and Other Data: Microbiology 05/08/19 11:57 Stool Occult Blood (NILSA) - Final Stool Assess/Plan/Problems-Billing Assessment: 88 yo male with PMHx iron def anemia, pernicious anemia, prostate CA, neurogenic bladder and bowel presents for melena. - Patient Problems (1) Upper GI bleed Current Visit: Yes Status: Acute Code(s): K92.2 - GASTROINTESTINAL HEMORRHAGE, UNSPECIFIED SNOMED Code(s): 76515829 Comment: -EGD 05/08/19 showed Dieulafoy's lesion s/p clipping; additionally had biliary stent placed 2 years ago that was probably contributing to erosion of gastric lining -continuing PPI ggt for 72 hrs per GI recommendation -H&H dropped further today despite no BM -additional 1 U PRBC today; alreadly received 1 U prior -patient asymptomatic and VS stable -continue to monitor H&H (2) Acute blood loss anemia Current Visit: Yes Status: Acute Code(s): D62 - ACUTE POSTHEMORRHAGIC ANEMIA SNOMED Code(s): 647472044 Comment: -2/2 UGIB -Hgb <7 this AM -mgmt as above (3) SHARI (iron deficiency anemia) Current Visit: Yes Status: Acute Code(s): D50.9 - IRON DEFICIENCY ANEMIA, UNSPECIFIED SNOMED Code(s): 61789223 Comment: -pt is anemic at baseline, though Hgb usually ~12 -continue iron supplement (4) CAD (coronary artery disease) Current Visit: No Status: Chronic Code(s): I25.10 - ATHSCL HEART DISEASE OF [place] CORONARY ARTERY W/O ANG PCTRS SNOMED Code(s): 49899123 Comment: - Continue statin - holding ASA for now in setting of GIB (5) Neurogenic bladder Current Visit: No Status: Chronic Code(s): N31.9 - NEUROMUSCULAR DYSFUNCTION OF BLADDER, UNSPECIFIED SNOMED Code(s): 235464300 Comment: - History of frequent UTIs - Urinary incontinence at times at baseline (6) Neurogenic bowel Current Visit: No Status: Chronic Code(s): K59.2 - NEUROGENIC BOWEL, NOT ELSEWHERE CLASSIFIED SNOMED Code(s): 764685053 Comment: - Continue fiber regimen, miralax, and MOM (7) DNR (do not resuscitate) Current Visit: No Status: Acute (8) DVT prophylaxis Current Visit: No Status: Acute Code(s): VBG9957 - SNOMED Code(s): 964833647 Comment: - SCDs - chemoprophylaxis contraindicated in setting of GIB
--- NOTE | 2019-05-09 14:34 | PN ---
Progress Note - Progress Note Date of Service: 05/09/19 Note: doing well, no complaints except for back pain; no bm, no abd pain, n/v VSS nad, +bs, soft, nt Hgb 7.2---->6.6 getting another unite of PRBC UGI bleed, IV protonix for another 28 hrs no s/s active bleeding will follow, Abhay Ramos MD
[2019-05-09] MEDS ORDERED: NS 0.9% 1000 ML** 1,000 ML IV ONE (17:23)
[2019-05-09 17:47] LABS: Hematocrit 24 % (42-52); Hemoglobin 8.4 g/dL (14.0-18.0)
[2019-05-09] MEDS: Senna TAB 8.6 mg* TAB PO SCH (19:42)
[2019-05-09 22:24] LABS: Hematocrit 23 % (42-52); Hemoglobin 8.1 g/dL (14.0-18.0)
[2019-05-10] MEDS: Hydrocodone/Acetamin 10/325 MG 1 TAB PO PRN ×3 (03:19→22:58)
[2019-05-10] MEDS: Pantoprazole* 80 mg IN NS 80 MG/250 ML BAG IV SCH ×3 (03:28→19:43)
[2019-05-10 06:34] LABS: Hematocrit 24 % (42-52); Hemoglobin 8.2 g/dL (14.0-18.0)
[2019-05-10 06:46] LABS: Albumin 3.1 g/dL (3.2-5.2); Calcium 8.3 mg/dL (8.6-10.3); Potassium 3.9 mmol/L (3.5-5.0); Total Bilirubin 0.7 mg/dL (0.2-1.0)
[2019-05-10 06:52] LABS: Albumin/Globulin Ratio 1.8 (1-3); BUN/Creatinine Ratio 37.1 (8-20); EGFR African American 148.8 (>60); Globulin 1.7 g/dL (2-4); Total Protein 4.8 g/dL (6.4-8.9)
[2019-05-10] MEDS: Cholecalciferol TAB* 1000 UNITS PO SCH (08:13)
[2019-05-10] MEDS: Atorvastatin* 10 MG TAB PO SCH (08:14)
[2019-05-10] MEDS: Ferrous Gluconate TAB* 324 MG TAB PO SCH (08:14)
[2019-05-10] MEDS: Cyanocobalamin TAB* 500 MCG PO SCH (08:14)
--- NOTE | 2019-05-10 10:05 | PN ---
Subjective Date of Service: 05/10/19 Interval History: After evaluation yesterday, LONDON Poole tells me patient had black, tarry, small BM in evening. Patient tells me he has not had a BM today. Denies chest pain, dizziness/lightheadedness, abd pain, nausea, vomiting. He mentions he felt minimally short of breath with exertion when working with PT this AM. Denies SOB at rest. Tells me that although he does not like nursing homes, if PT recommends CURT he will consider it. Objective Active Medications: Acetaminophen (Tylenol Tab*) 650 mg PO Q6H PRN PRN Reason: MILD PAIN or TEMP > 100.4 Hydrocodone Bitart/Acetaminophen ([place] 10/325 (Nf)) 1 tab PO Q4H PRN PRN Reason: PAIN Last Admin: 05/10/19 03:19 Dose: 1 tab Atorvastatin Calcium (Lipitor*) 10 mg PO DAILY [facility] Last Admin: 05/10/19 08:14 Dose: 10 mg Cholecalciferol (Vitamin D Tab*) 1,000 units PO DAILY [facility] Last Admin: 05/10/19 08:13 Dose: 1,000 units Cyanocobalamin (Vitamin B12 Tab*) 1,000 mcg PO DAILY [facility] Last Admin: 05/10/19 08:14 Dose: 1,000 mcg Ferrous Gluconate (Fergon Tab*) 324 mg PO DAILY [facility] Last Admin: 05/10/19 08:14 Dose: 324 mg Pantoprazole Sodium (Protonix Iv Bag*) 80 mg in 250 mls @ 25 mls/hr IV Q10H [facility] Last Admin: 05/10/19 03:28 Dose: 25 mls/hr Ondansetron HCl (Zofran Inj*) 4 mg IV Q6H PRN PRN Reason: NAUSEA Senna (Senokot 8.6 Mg Tab*) 1 tab PO BEDTIME [facility] Last Admin: 05/09/19 19:42 Dose: Not Given Vital Signs - 8 hr 05/10/19 05/10/19 03:12 03:19 Temperature 97.5 F Pulse Rate 94 Respiratory 16 18 Rate Blood Pressure 140/69 (mmHg) O2 Sat by Pulse 100 Oximetry Oxygen Devices in Use Now: None Appearance: Elderly white male, sitting in chair, appearing comfortable and in NAD Eyes: No Scleral Icterus, - - PERRL Ears/Nose/Mouth/Throat: Mucous Membranes Moist Neck: Trachea Midline Respiratory: Symmetrical Chest Expansion and Respiratory Effort, Clear to Auscultation Cardiovascular: NL Sounds; No Murmurs; No JVD, RRR Abdominal: - - abd soft, nontender, nondistended Extremities: No Edema, No Clubbing, Cyanosis, - - no calf tenderness Skin: No Rash or Ulcers Neurological: Alert and Oriented x 3, NL Muscle Strength and Tone Result Diagrams: 05/10/19 17:00 05/10/19 06:00 Additional Lab and Data: Lab Results 05/08/19 05/08/19 05/08/19 Range/Units 12:13 12:13 12:13 WBC 5.6 (3.5-10.8) 10^3/uL RBC 2.03 L (4.18-5.48) 10^6 /uL Hgb 7.0 L (14.0-18.0) g/dL Hct 21 L (42-52) % MCV 102 H (80-94) fL MCH 35 H (27-31) pg MCHC 34 (31-36) g/dL RDW 15 (10-15) % Plt Count 155 (150-450) 10^3/uL MPV 7.8 (7.4-10.4) fL Neut % (Auto) 80.9 % Lymph % (Auto) 5.9 % [place] % (Auto) 12.5 % Eos % (Auto) 0.2 % Baso % (Auto) 0.5 % Absolute Neuts (auto) 4.5 (1.5-7.7) 10^3/ul Absolute Lymphs (auto) 0.3 L (1.0-4.8) 10^3/ul Absolute Monos (auto) 0.7 (0-0.8) 10^3/ul Absolute Eos (auto) 0.0 (0-0.6) 10^3/ul Absolute Basos (auto) 0.0 (0-0.2) 10^3/ul Absolute Nucleated RBC 0.0 10^3/ul Nucleated RBC % 0.0 Sodium 138 (135-145) mmol/L Potassium 4.3 (3.5-5.0) mmol/L Chloride 106 (101-111) mmol/L Carbon Dioxide 28 (22-32) mmol/L Anion Gap 4 (2-11) mmol/L BUN 52 H (6-24) mg/dL Creatinine 0.73 (0.67-1.17) mg/dL Est GFR ( Amer) 123.3 (>60) Est GFR (Non-Af Amer) 101.9 (>60) BUN/Creatinine Ratio 71.2 H (8-20) Glucose 98 (70-100) mg/dL Calcium 9.3 (8.6-10.3) mg/dL Total Bilirubin 0.50 (0.2-1.0) mg/dL AST 14 (13-39) U/L ALT 9 (7-52) U/L Alkaline Phosphatase 38 (34-104) U/L Total Protein 5.5 L (6.4-8.9) g/dL Albumin 3.5 (3.2-5.2) g/dL Globulin 2.0 (2-4) g/dL Albumin/Globulin Ratio 1.8 (1-3) Blood Type A Positive Antibody Screen Negative Crossmatch See Detail Microbiology and Other Data: Microbiology 05/08/19 11:57 Stool Occult Blood (NILSA) - Final Stool Assess/Plan/Problems-Billing Assessment: 88 yo male with PMHx CACD, iron def anemia, pernicious anemia, prostate CA, neurogenic bladder and bowel presents for melena. - Patient Problems (1) Upper GI bleed Current Visit: Yes Status: Acute Code(s): K92.2 - GASTROINTESTINAL HEMORRHAGE, UNSPECIFIED SNOMED Code(s): 13332932 Comment: -EGD 05/08/19 showed Dieulafoy's lesion s/p clipping; additionally had biliary stent placed 2 years ago that was probably contributing to erosion of gastric lining -continuing PPI ggt for 72 hrs per GI recommendation (started 1500 05/08/19) -yesterday transfused additional 1U PRBC; has received total 2U PRBCs this admission -H&H was stable yesterday after transfusion but dropped again today with unclear reason as has not had additional melenic BM; d/w Dr. Pickens, no changes in current plan right now -patient asymptomatic and VS stable -continue to monitor H&H (2) Acute blood loss anemia Current Visit: Yes Status: Acute Code(s): D62 - ACUTE POSTHEMORRHAGIC ANEMIA SNOMED Code(s): 287204847 Comment: -2/2 UGIB -H&H improved today -mgmt as above (3) SHARI (iron deficiency anemia) Current Visit: Yes Status: Acute Code(s): D50.9 - IRON DEFICIENCY ANEMIA, UNSPECIFIED SNOMED Code(s): 19374056 Comment: -pt is anemic at baseline, though Hgb usually ~12 -continue iron supplement (4) CAD (coronary artery disease) Current Visit: No Status: Chronic Code(s): I25.10 - ATHSCL HEART DISEASE OF [place] CORONARY ARTERY W/O ANG PCTRS SNOMED Code(s): 05704553 Comment: - Continue statin - holding ASA for now in setting of GIB (5) Neurogenic bladder Current Visit: No Status: Chronic Code(s): N31.9 - NEUROMUSCULAR DYSFUNCTION OF BLADDER, UNSPECIFIED SNOMED Code(s): 153796737 Comment: - History of frequent UTIs - Urinary incontinence at times at baseline (6) Neurogenic bowel Current Visit: No Status: Chronic Code(s): K59.2 - NEUROGENIC BOWEL, NOT ELSEWHERE CLASSIFIED SNOMED Code(s): 961762410 Comment: - Continue fiber regimen, miralax, and MOM (7) DNR (do not resuscitate) Current Visit: No Status: Acute (8) DVT prophylaxis Current Visit: No Status: Acute Code(s): GGX5176 - SNOMED Code(s): 604529247 Comment: - SCDs - chemoprophylaxis contraindicated in setting of GIB Status and Disposition: pending PT eval, may need CURT at discharge; remains inpatient for protonix IV
[2019-05-10 15:13] LABS: Hematocrit 21 % (42-52)
[2019-05-10 17:07] LABS: Hematocrit 21 % (42-52); Hemoglobin 7.3 g/dL (14.0-18.0)
[2019-05-10] MEDS: Senna TAB 8.6 mg* TAB PO SCH (19:53)
[2019-05-10 21:42] LABS: Hematocrit 21 % (42-52); Hemoglobin 7.1 g/dL (14.0-18.0)
[2019-05-10] MEDS: Acetaminophen TAB* 325 MG PO PRN (22:09)
[2019-05-11] MEDS: Pantoprazole* 80 mg IN NS 80 MG/250 ML BAG IV SCH ×2 (03:04→13:44)
[2019-05-11] MEDS: Hydrocodone/Acetamin 10/325 MG 1 TAB PO PRN ×2 (04:24→19:29)
[2019-05-11 07:27] LABS: BUN/Creatinine Ratio 31.7 (8-20); Calcium 8.3 mg/dL (8.6-10.3); EGFR African American 146.1 (>60); EGFR Non-African American 120.8 (>60); Potassium 3.9 mmol/L (3.5-5.0)
[2019-05-11 09:09] LABS: ABS Eosinophils 0.1 10^3/ul (0-0.6); ABS Lymphocytes 0.5 10^3/ul (1.0-4.8); ABS Monocytes 0.9 10^3/ul (0-0.8); ABS Neutrophils 3.2 10^3/ul (1.5-7.7); Eosinophil % 1.2 %; Hematocrit 22 % (42-52); Hemoglobin 7.5 g/dL (14.0-18.0); Lymphocyte % 10.3 %; Mean Corpuscular HGB Conc 34 g/dL (31-36); Mean Corpuscular Hemoglobin 34 pg (27-31); Mean Corpuscular Volume 100 fL (80-94); Mean Platelet Volume 8.3 fL (7.4-10.4); Platelet Count 145 10^3/uL (150-450); Red Blood Count 2.22 10^6 /uL (4.18-5.48); Red Cell Distribution Width 18 % (10-15); White Blood Count 4.7 10^3/uL (3.5-10.8)
[2019-05-11] MEDS: Cholecalciferol TAB* 1000 UNITS PO SCH (09:38)
[2019-05-11] MEDS: Atorvastatin* 10 MG TAB PO SCH (09:38)
[2019-05-11] MEDS: Ferrous Gluconate TAB* 324 MG TAB PO SCH (09:38)
[2019-05-11] MEDS: Cyanocobalamin TAB* 500 MCG PO SCH (09:38)
[2019-05-11] MEDS ORDERED: Polyethylene Glycol 3350* 17 GM PACKET PO PRN (15:10)
--- NOTE | 2019-05-11 15:18 | PN ---
Subjective Date of Service: 05/11/19 Interval History: Patient tells me he has not had a bowel movement since he has arrived to the hospital. LONDON Poole observed small, black BM this morning. Patient concerned that he is retaining more urine than usual. OK with post void residual scan. Denies abd pain, nausea, vomiting, chest pain, difficulty breathing. He felt weak when walking today but denies dizziness/lightheadedness. Objective Active Medications: Acetaminophen (Tylenol Tab*) 650 mg PO Q6H PRN PRN Reason: MILD PAIN or TEMP > 100.4 Last Admin: 05/10/19 22:09 Dose: 650 mg Hydrocodone Bitart/Acetaminophen ([place] 10/325 (Nf)) 1 tab PO Q4H PRN PRN Reason: PAIN Last Admin: 05/11/19 04:24 Dose: 1 tab Atorvastatin Calcium (Lipitor*) 10 mg PO DAILY [facility] Last Admin: 05/11/19 09:38 Dose: 10 mg Cholecalciferol (Vitamin D Tab*) 1,000 units PO DAILY [facility] Last Admin: 05/11/19 09:38 Dose: 1,000 units Cyanocobalamin (Vitamin B12 Tab*) 1,000 mcg PO DAILY [facility] Last Admin: 05/11/19 09:38 Dose: 1,000 mcg Ferrous Gluconate (Fergon Tab*) 324 mg PO DAILY [facility] Last Admin: 05/11/19 09:38 Dose: 324 mg Ondansetron HCl (Zofran Inj*) 4 mg IV Q6H PRN PRN Reason: NAUSEA Pantoprazole Sodium (Protonix Tab*) 40 mg PO BID [facility] Polyethylene Glycol/Electrolytes (Miralax (17 Gm Dose Rob)) 17 gm PO DAILY PRN PRN Reason: CONSTIPATION Senna (Senokot 8.6 Mg Tab*) 1 tab PO BEDTIME [facility] Last Admin: 05/10/19 19:53 Dose: 1 tab Vital Signs - 8 hr 05/11/19 05/11/19 05/11/19 07:15 08:00 11:15 Temperature 97.6 F 97.9 F Pulse Rate 86 70 Respiratory 18 17 18 Rate Blood Pressure 107/57 110/52 (mmHg) O2 Sat by Pulse 98 100 Oximetry Oxygen Devices in Use Now: None Appearance: Thin, elderly white male, laying upright in bed, appearing comfortable and in NAD Eyes: No Scleral Icterus, - - PERRL Ears/Nose/Mouth/Throat: Mucous Membranes Moist Neck: Trachea Midline Respiratory: Symmetrical Chest Expansion and Respiratory Effort, Clear to Auscultation Cardiovascular: NL Sounds; No Murmurs; No JVD, RRR Abdominal: NL Sounds; No Tenderness; No Distention Extremities: No Edema, No Clubbing, Cyanosis Skin: No Rash or Ulcers Neurological: Alert and Oriented x 3 Result Diagrams: 05/11/19 16:29 05/11/19 06:58 Additional Lab and Data: Lab Results 05/08/19 05/08/19 05/08/19 Range/Units 12:13 12:13 12:13 WBC 5.6 (3.5-10.8) 10^3/uL RBC 2.03 L (4.18-5.48) 10^6 /uL Hgb 7.0 L (14.0-18.0) g/dL Hct 21 L (42-52) % MCV 102 H (80-94) fL MCH 35 H (27-31) pg MCHC 34 (31-36) g/dL RDW 15 (10-15) % Plt Count 155 (150-450) 10^3/uL MPV 7.8 (7.4-10.4) fL Neut % (Auto) 80.9 % Lymph % (Auto) 5.9 % [place] % (Auto) 12.5 % Eos % (Auto) 0.2 % Baso % (Auto) 0.5 % Absolute Neuts (auto) 4.5 (1.5-7.7) 10^3/ul Absolute Lymphs (auto) 0.3 L (1.0-4.8) 10^3/ul Absolute Monos (auto) 0.7 (0-0.8) 10^3/ul Absolute Eos (auto) 0.0 (0-0.6) 10^3/ul Absolute Basos (auto) 0.0 (0-0.2) 10^3/ul Absolute Nucleated RBC 0.0 10^3/ul Nucleated RBC % 0.0 Sodium 138 (135-145) mmol/L Potassium 4.3 (3.5-5.0) mmol/L Chloride 106 (101-111) mmol/L Carbon Dioxide 28 (22-32) mmol/L Anion Gap 4 (2-11) mmol/L BUN 52 H (6-24) mg/dL Creatinine 0.73 (0.67-1.17) mg/dL Est GFR ( Amer) 123.3 (>60) Est GFR (Non-Af Amer) 101.9 (>60) BUN/Creatinine Ratio 71.2 H (8-20) Glucose 98 (70-100) mg/dL Calcium 9.3 (8.6-10.3) mg/dL Total Bilirubin 0.50 (0.2-1.0) mg/dL AST 14 (13-39) U/L ALT 9 (7-52) U/L Alkaline Phosphatase 38 (34-104) U/L Total Protein 5.5 L (6.4-8.9) g/dL Albumin 3.5 (3.2-5.2) g/dL Globulin 2.0 (2-4) g/dL Albumin/Globulin Ratio 1.8 (1-3) Blood Type A Positive Antibody Screen Negative Crossmatch See Detail Microbiology and Other Data: Microbiology 05/08/19 11:57 Stool Occult Blood (NILSA) - Final Stool Assess/Plan/Problems-Billing Assessment: 88 yo male with PMHx CACD, iron def anemia, pernicious anemia, prostate CA, neurogenic bladder and bowel presents for melena. - Patient Problems (1) Upper GI bleed Current Visit: Yes Status: Acute Code(s): K92.2 - GASTROINTESTINAL HEMORRHAGE, UNSPECIFIED SNOMED Code(s): 55895360 Comment: -EGD 05/08/19 showed Dieulafoy's lesion s/p clipping; additionally had biliary stent placed 2 years ago that was probably contributing to erosion of gastric lining -PPI ggt for 72 hrs per GI recommendation, completed today -has received total 2U PRBCs this admission -H&H has been overall stable but would like to continue to monitor -patient asymptomatic and VS stable -po protonix BID started, should continue for 3 months per GI (2) Urinary retention Current Visit: Yes Status: Acute Code(s): R33.9 - RETENTION OF URINE, UNSPECIFIED SNOMED Code(s): 786100301 Comment: -patient has known neurogenic bladder but PVR bladder scan with >900 cc today -placing woodard -UA with reflex urine culture pending -renal US pending -Dr. Canela recommends leaving woodard in and f/u with him in office outpatient and will discuss intermittent straight cath (3) Acute blood loss anemia Current Visit: Yes Status: Acute Code(s): D62 - ACUTE POSTHEMORRHAGIC ANEMIA SNOMED Code(s): 007792580 Comment: -2/2 UGIB -H&H improved today -mgmt as above (4) SHARI (iron deficiency anemia) Current Visit: Yes Status: Acute Code(s): D50.9 - IRON DEFICIENCY ANEMIA, UNSPECIFIED SNOMED Code(s): 81524440 Comment: -pt is anemic at baseline, though Hgb usually ~12 -continue iron supplement (5) CAD (coronary artery disease) Current Visit: No Status: Chronic Code(s): I25.10 - ATHSCL HEART DISEASE OF [place] CORONARY ARTERY W/O ANG PCTRS SNOMED Code(s): 63794640 Comment: - Continue statin - holding ASA for now in setting of GIB (6) Neurogenic bladder Current Visit: No Status: Chronic Code(s): N31.9 - NEUROMUSCULAR DYSFUNCTION OF BLADDER, UNSPECIFIED SNOMED Code(s): 628889445 Comment: - History of frequent UTIs - Urinary incontinence at times at baseline (7) Neurogenic bowel Current Visit: No Status: Chronic Code(s): K59.2 - NEUROGENIC BOWEL, NOT ELSEWHERE CLASSIFIED SNOMED Code(s): 207088293 Comment: - Continue fiber regimen, miralax, and MOM (8) Memory loss Current Visit: Yes Status: Acute Code(s): R41.3 - OTHER AMNESIA SNOMED Code(s): 33064260 Comment: -discussed with Dr. Lema and she tells me patient does have memory loss issues at baseline; she does also mention that the patient drinks more daily than recommended -patient has been having memory loss issues in the hospital and is sometimes agitated when nursing discusses events that have been documented; I believe this is likely related to his ongoing memory loss and I am less concernred about acute delirium, but will start WAM protocol with very low doses of po ativan (9) DNR (do not resuscitate) Current Visit: No Status: Acute (10) DVT prophylaxis Current Visit: No Status: Acute Code(s): LTC5143 - SNOMED Code(s): 052789244 Comment: - SCDs - chemoprophylaxis contraindicated in setting of GIB Status and Disposition: remains inpatient for monitoring of H&H, anticipate CURT at discharge
[2019-05-11] MEDS ORDERED: LORazepam TAB(*) 1 MG PO SCH (16:00)
[2019-05-11 16:37] LABS: Hematocrit 22 % (42-52); Hemoglobin 7.6 g/dL (14.0-18.0)
[2019-05-11 16:59] LABS: Urine Appearance Turbid; Urine Bilirubin Negative (Negative); Urine Blood 2+ (Negative); Urine Color Yellow; Urine Glucose Negative (Negative); Urine Ketones Negative (Negative); Urine Nitrite Positive (Negative); Urine Protein 1+(30 mg/dL) (Negative); Urine Specific Gravity 1.013 (1.010-1.030); Urine Urobilinogen Negative (Negative)
[2019-05-11 17:04] LABS: Urine Bacteria Absent (Absent); Urine Red Blood Cell 3+(>10/hpf) (Absent); Urine White Blood Cell 3+(>20/hpf) (Absent)
[2019-05-11] MEDS: Senna TAB 8.6 mg* TAB PO SCH (21:35)
[2019-05-11] MEDS: Pantoprazole TAB * 40 MG TAB PO SCH (21:35)
[2019-05-11] MEDS: cefTRIAXone(*) 1 GM in NS 0.9% 50 ML* 50 ML IVPB SCH (21:36)
[2019-05-12] MEDS: Hydrocodone/Acetamin 10/325 MG 1 TAB PO PRN ×3 (00:07→16:59)
[2019-05-12] MEDS: Acetaminophen TAB* 325 MG PO PRN (02:52)
[2019-05-12 06:04] LABS: Hematocrit 24 % (42-52); Hemoglobin 7.7 g/dL (14.0-18.0); Mean Corpuscular HGB Conc 32 g/dL (31-36); Mean Corpuscular Hemoglobin 34 pg (27-31); Mean Corpuscular Volume 107 fL (80-94); Mean Platelet Volume 9.4 fL (7.4-10.4); Platelet Count 116 10^3/uL (150-450); Red Blood Count 2.26 10^6 /uL (4.18-5.48); Red Cell Distribution Width 20 % (10-15); White Blood Count 5.2 10^3/uL (3.5-10.8)
[2019-05-12 06:14] LABS: BUN/Creatinine Ratio 26.6 (8-20); Calcium 8.7 mg/dL (8.6-10.3); EGFR African American 143.5 (>60); EGFR Non-African American 118.6 (>60); Potassium 3.9 mmol/L (3.5-5.0)
[2019-05-12 06:33] LABS: Polychromasia 1+
[2019-05-12 06:37] LABS: ABS Lymphocytes 0.6 10^3/ul (1.0-4.8); ABS Monocytes 0.9 10^3/ul (0-0.8); ABS Neutrophils 3.7 10^3/ul (1.5-7.7); Eosinophil % 0.9 %; Lymphocyte % 10.9 %; Nucleated Red Blood Cells % 0.1
[2019-05-12] MEDS: Thiamine TAB* 100 MG TAB PO SCH (09:03)
[2019-05-12] MEDS: Folic Acid TAB* 1 MG PO SCH (09:03)
[2019-05-12] MEDS: Cholecalciferol TAB* 1000 UNITS PO SCH (09:04)
[2019-05-12] MEDS: Multivitamins/Minerals TAB PO SCH (09:04)
[2019-05-12] MEDS: Cyanocobalamin TAB* 500 MCG PO SCH (09:04)
[2019-05-12] MEDS: Pantoprazole TAB * 40 MG TAB PO SCH ×2 (09:04→22:10)
[2019-05-12] MEDS: Atorvastatin* 10 MG TAB PO SCH (09:04)
[2019-05-12] MEDS: Ferrous Gluconate TAB* 324 MG TAB PO SCH (09:04)
[2019-05-12] MEDS ORDERED: NS 0.9% 1000 ML** 1,000 ML IV ONE (09:47)
[2019-05-12] MEDS ORDERED: NS 0.9% 1000 ML** 1,000 ML IV SCH (10:00)
--- NOTE | 2019-05-12 15:56 | PN ---
Subjective Date of Service: 05/12/19 Interval History: Patient c/o shortness of breath with ambulation this morning, but has not felt this way since nor at rest. Denies chest pain during this time nor at time of evaluation. Denies abd pain, back pain, fever/chills, nausea, dizziness/ lightheadedness. Notified in evening that patient black, tarry BM. Objective Active Medications: Acetaminophen (Tylenol Tab*) 650 mg PO Q6H PRN PRN Reason: MILD PAIN or TEMP > 100.4 Last Admin: 05/12/19 02:52 Dose: 650 mg Hydrocodone Bitart/Acetaminophen ([place] 10/325 (Nf)) 1 tab PO Q4H PRN PRN Reason: PAIN Last Admin: 05/12/19 05:35 Dose: 1 tab Atorvastatin Calcium (Lipitor*) 10 mg PO DAILY [facility] Last Admin: 05/12/19 09:04 Dose: 10 mg Cholecalciferol (Vitamin D Tab*) 1,000 units PO DAILY [facility] Last Admin: 05/12/19 09:04 Dose: 1,000 units Cyanocobalamin (Vitamin B12 Tab*) 1,000 mcg PO DAILY [facility] Last Admin: 05/12/19 09:04 Dose: 1,000 mcg Ferrous Gluconate (Fergon Tab*) 324 mg PO DAILY [facility] Last Admin: 05/12/19 09:04 Dose: 324 mg Folic Acid (Folvite Tab*) 1 mg PO DAILY [facility] Last Admin: 05/12/19 09:03 Dose: 1 mg Ceftriaxone Sodium 1 gm/ (Sodium Chloride) 50 mls @ 100 mls/hr IVPB Q24H [facility] Last Admin: 05/11/19 21:36 Dose: 100 mls/hr Sodium Chloride (Ns 0.9% 1000 Ml) 1,000 mls @ 100 mls/hr IV PER RATE [facility] Last Admin: 05/12/19 11:03 Dose: 100 mls/hr Lorazepam (Ativan Tab(*)) 0 - 6 mg PO .PER [facility] PROTOCOL [place]; Protocol Multivitamins/Minerals (Theragran/Minerals Tab*) 1 tab PO DAILY [facility] Last Admin: 05/12/19 09:04 Dose: 1 tab Ondansetron HCl (Zofran Inj*) 4 mg IV Q6H PRN PRN Reason: NAUSEA Pantoprazole Sodium (Protonix Tab*) 40 mg PO BID [facility] Last Admin: 05/12/19 09:04 Dose: 40 mg Polyethylene Glycol/Electrolytes (Miralax (17 Gm Dose Rob)) 17 gm PO DAILY PRN PRN Reason: CONSTIPATION Last Admin: 05/11/19 19:29 Dose: 17 gm Senna (Senokot 8.6 Mg Tab*) 2 tab PO BEDTIME [facility] Thiamine HCl (Vitamin B-1 Tab*) 100 mg PO DAILY [facility] Last Admin: 05/12/19 09:03 Dose: 100 mg Vital Signs - 8 hr 05/12/19 05/12/19 05/12/19 08:00 09:32 09:34 Temperature Pulse Rate 113 99 Respiratory 18 Rate Blood Pressure 79/39 102/41 (mmHg) O2 Sat by Pulse 100 100 Oximetry 05/12/19 05/12/19 10:02 11:17 Temperature 97.4 F Pulse Rate 77 Respiratory 18 16 Rate Blood Pressure 103/52 (mmHg) O2 Sat by Pulse 99 Oximetry Oxygen Devices in Use Now: None Appearance: Elderly white male, laying in bed, appearing comfortable and in NAD Eyes: No Scleral Icterus, - - PERRL Ears/Nose/Mouth/Throat: Mucous Membranes Moist Neck: Trachea Midline Respiratory: Symmetrical Chest Expansion and Respiratory Effort, Clear to Auscultation Cardiovascular: NL Sounds; No Murmurs; No JVD, RRR Abdominal: - - abd soft/nontender/nondistended Extremities: No Edema, No Clubbing, Cyanosis Skin: No Rash or Ulcers Neurological: Alert and Oriented x 3 Result Diagrams: 05/12/19 16:09 05/12/19 05:31 Additional Lab and Data: Lab Results 05/08/19 05/08/19 05/08/19 Range/Units 12:13 12:13 12:13 WBC 5.6 (3.5-10.8) 10^3/uL RBC 2.03 L (4.18-5.48) 10^6 /uL Hgb 7.0 L (14.0-18.0) g/dL Hct 21 L (42-52) % MCV 102 H (80-94) fL MCH 35 H (27-31) pg MCHC 34 (31-36) g/dL RDW 15 (10-15) % Plt Count 155 (150-450) 10^3/uL MPV 7.8 (7.4-10.4) fL Neut % (Auto) 80.9 % Lymph % (Auto) 5.9 % [place] % (Auto) 12.5 % Eos % (Auto) 0.2 % Baso % (Auto) 0.5 % Absolute Neuts (auto) 4.5 (1.5-7.7) 10^3/ul Absolute Lymphs (auto) 0.3 L (1.0-4.8) 10^3/ul Absolute Monos (auto) 0.7 (0-0.8) 10^3/ul Absolute Eos (auto) 0.0 (0-0.6) 10^3/ul Absolute Basos (auto) 0.0 (0-0.2) 10^3/ul Absolute Nucleated RBC 0.0 10^3/ul Nucleated RBC % 0.0 Sodium 138 (135-145) mmol/L Potassium 4.3 (3.5-5.0) mmol/L Chloride 106 (101-111) mmol/L Carbon Dioxide 28 (22-32) mmol/L Anion Gap 4 (2-11) mmol/L BUN 52 H (6-24) mg/dL Creatinine 0.73 (0.67-1.17) mg/dL Est GFR ( Amer) 123.3 (>60) Est GFR (Non-Af Amer) 101.9 (>60) BUN/Creatinine Ratio 71.2 H (8-20) Glucose 98 (70-100) mg/dL Calcium 9.3 (8.6-10.3) mg/dL Total Bilirubin 0.50 (0.2-1.0) mg/dL AST 14 (13-39) U/L ALT 9 (7-52) U/L Alkaline Phosphatase 38 (34-104) U/L Total Protein 5.5 L (6.4-8.9) g/dL Albumin 3.5 (3.2-5.2) g/dL Globulin 2.0 (2-4) g/dL Albumin/Globulin Ratio 1.8 (1-3) Blood Type A Positive Antibody Screen Negative Crossmatch See Detail Microbiology and Other Data: Microbiology 05/08/19 11:57 Stool Occult Blood (NILSA) - Final Stool Assess/Plan/Problems-Billing Assessment: 88 yo male with PMHx CACD, iron def anemia, pernicious anemia, prostate CA, neurogenic bladder and bowel presents for melena. 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 Baez; he recommends that if additional melena O/N or if H &H drops after transfusion then should have repeat EGD tomorrow, will make NPO after midnight in anticipation of this -po protonix BID started, should continue for 3 months per GI (2) Urinary retention Current Visit: Yes Status: Acute Code(s): R33.9 - RETENTION OF URINE, UNSPECIFIED SNOMED Code(s): 020086769 Comment: -patient has known neurogenic bladder but PVR bladder scan with >900 cc today -placing woodard -UA appears significantly concerning for UTI, awaiting urine culture, treating empirically with ceftriaxone -renal US without hydronephrosis -Dr. Canela recommends leaving woodard in and f/u with him in office outpatient and will discuss intermittent straight cath (3) Hypotension Current Visit: Yes Status: Acute Comment: -hypotension x 1 episode -likely related to fluid shift in setting of significant urine retention -started fluid bolus and running NS at 100cc/hr, improved -H&H stable this AM, will repeat (4) Acute blood loss anemia Current Visit: Yes Status: Acute Code(s): D62 - ACUTE POSTHEMORRHAGIC ANEMIA SNOMED Code(s): 132569804 Comment: -2/2 UGIB -mgmt as above (5) SHARI (iron deficiency anemia) Current Visit: Yes Status: Acute Code(s): D50.9 - IRON DEFICIENCY ANEMIA, UNSPECIFIED SNOMED Code(s): 39395155 Comment: -pt is anemic at baseline, though Hgb usually ~12 -continue iron supplement (6) CAD (coronary artery disease) Current Visit: No Status: Chronic Code(s): I25.10 - ATHSCL HEART DISEASE OF [place] CORONARY ARTERY W/O ANG PCTRS SNOMED Code(s): 28255314 Comment: - Continue statin - holding ASA for now in setting of GIB (7) Neurogenic bladder Current Visit: No Status: Chronic Code(s): N31.9 - NEUROMUSCULAR DYSFUNCTION OF BLADDER, UNSPECIFIED SNOMED Code(s): 711144699 Comment: - History of frequent UTIs - Urinary incontinence at times at baseline (8) Neurogenic bowel Current Visit: No Status: Chronic Code(s): K59.2 - NEUROGENIC BOWEL, NOT ELSEWHERE CLASSIFIED SNOMED Code(s): 421364751 Comment: - Continue fiber regimen, miralax, and MOM (9) Memory loss Current Visit: Yes Status: Acute Code(s): R41.3 - OTHER AMNESIA SNOMED Code(s): 99540919 Comment: -discussed with Dr. Lema and she tells me patient does have memory loss issues at baseline; she does also mention that the patient drinks more daily than recommended -patient has been having memory loss issues in the hospital and is sometimes agitated when nursing discusses events that have been documented; this has been fluctuating and appears more intact during the day today -d/c WAM (10) DNR (do not resuscitate) Current Visit: No Status: Acute (11) DVT prophylaxis Current Visit: No Status: Acute Code(s): [id number] - SNOMED Code(s): 256824240 Comment: - SCDs - chemoprophylaxis contraindicated in setting of GIB Status and Disposition: remains inpatient for monitoring of H&H, anticipate CURT at discharge
[2019-05-12 16:20] LABS: Hematocrit 20 % (42-52); Hemoglobin 6.9 g/dL (14.0-18.0)
[2019-05-12] MEDS: cefTRIAXone(*) 1 GM in NS 0.9% 50 ML* 50 ML IVPB SCH (22:09)
[2019-05-12] MEDS: Senna TAB 8.6 mg* TAB PO SCH (22:10)
[2019-05-13 00:17] LABS: Hematocrit 24 % (42-52); Hemoglobin 7.9 g/dL (14.0-18.0)
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
[2019-05-13] MEDS: Acetaminophen TAB* 325 MG PO PRN (01:17)
[2019-05-13] MEDS: Hydrocodone/Acetamin 10/325 MG 1 TAB PO PRN ×2 (03:16→20:55)
[2019-05-13] MEDS ORDERED: NS 0.9% 1000 ML** 1,000 ML IV SCH (07:00)
[2019-05-13 08:46] LABS: ABS Eosinophils 0.1 10^3/ul (0-0.6); ABS Lymphocytes 0.4 10^3/ul (1.0-4.8); ABS Neutrophils 4.3 10^3/ul (1.5-7.7); Eosinophil % 2.3 %; Hematocrit 23 % (42-52); Hemoglobin 7.9 g/dL (14.0-18.0); Lymphocyte % 7.2 %; Mean Corpuscular HGB Conc 34 g/dL (31-36); Mean Corpuscular Hemoglobin 34 pg (27-31); Mean Corpuscular Volume 98 fL (80-94); Mean Platelet Volume 8.2 fL (7.4-10.4); Platelet Count 156 10^3/uL (150-450); Red Blood Count 2.36 10^6 /uL (4.18-5.48); Red Cell Distribution Width 19 % (10-15); White Blood Count 5.9 10^3/uL (3.5-10.8)
[2019-05-13] MEDS ORDERED: Pantoprazole IV* 40 MG IV ONE (09:00)
[2019-05-13 09:18] LABS: BUN/Creatinine Ratio 18.8 (8-20); Calcium 8.2 mg/dL (8.6-10.3); EGFR African American 143.5 (>60); EGFR Non-African American 118.6 (>60)
[2019-05-13] MEDS: Cyanocobalamin TAB* 500 MCG PO SCH (11:23)
[2019-05-13] MEDS: Ferrous Gluconate TAB* 324 MG TAB PO SCH (11:23)
[2019-05-13] MEDS: Pantoprazole TAB * 40 MG TAB PO SCH ×2 (11:23→20:02)
[2019-05-13] MEDS: Thiamine TAB* 100 MG TAB PO SCH (11:23)
[2019-05-13] MEDS: Folic Acid TAB* 1 MG PO SCH (11:23)
[2019-05-13] MEDS: Atorvastatin* 10 MG TAB PO SCH (11:23)
[2019-05-13] MEDS: Multivitamins/Minerals TAB PO SCH (11:23)
[2019-05-13] MEDS: Cholecalciferol TAB* 1000 UNITS PO SCH (11:23)
[2019-05-13] MEDS ORDERED: Morphine INJ* 2 MG/ML 1 ML SYRINGE (TWO MG - NEW SYRINGE VERSION) IV ONE (11:48)
--- NOTE | 2019-05-13 14:18 | PN ---
Subjective Date of Service: 05/13/19 Interval History: Patient has not had BM since yesterday. Denies chest pain, shortness of breath, dizziness/lightheadedness, abd pain, fever/chills today. Did ambulate once today and felt weak. He is hoping to gain back strength at [facility]. Objective Active Medications: Acetaminophen (Tylenol Tab*) 650 mg PO Q6H PRN PRN Reason: MILD PAIN or TEMP > 100.4 Last Admin: 05/13/19 01:17 Dose: 650 mg Hydrocodone Bitart/Acetaminophen ([place] 10/325 (Nf)) 1 tab PO Q4H PRN PRN Reason: PAIN Last Admin: 05/13/19 03:16 Dose: 1 tab Atorvastatin Calcium (Lipitor*) 10 mg PO DAILY [facility] Last Admin: 05/13/19 11:23 Dose: Not Given Cholecalciferol (Vitamin D Tab*) 1,000 units PO DAILY [facility] Last Admin: 05/13/19 11:23 Dose: Not Given Cyanocobalamin (Vitamin B12 Tab*) 1,000 mcg PO DAILY [facility] Last Admin: 05/13/19 11:23 Dose: Not Given Ferrous Gluconate (Fergon Tab*) 324 mg PO DAILY [facility] Last Admin: 05/13/19 11:23 Dose: Not Given Folic Acid (Folvite Tab*) 1 mg PO DAILY [facility] Last Admin: 05/13/19 11:23 Dose: Not Given Cefepime HCl (Maxipime 2 Gm In Dextrose Duplex (*)) 2 gm in 50 mls @ 100 mls/ hr IV Q12H [facility] Multivitamins/Minerals (Theragran/Minerals Tab*) 1 tab PO DAILY [facility] Last Admin: 05/13/19 11:23 Dose: Not Given Ondansetron HCl (Zofran Inj*) 4 mg IV Q6H PRN PRN Reason: NAUSEA Pantoprazole Sodium (Protonix Tab*) 40 mg PO BID [facility] Last Admin: 05/13/19 11:23 Dose: Not Given Polyethylene Glycol/Electrolytes (Miralax (17 Gm Dose Rob)) 17 gm PO DAILY PRN PRN Reason: CONSTIPATION Last Admin: 05/11/19 19:29 Dose: 17 gm Senna (Senokot 8.6 Mg Tab*) 2 tab PO BEDTIME [facility] Last Admin: 05/12/19 22:10 Dose: 2 tab Thiamine HCl (Vitamin B-1 Tab*) 100 mg PO DAILY [facility] Last Admin: 05/13/19 11:23 Dose: Not Given Vital Signs - 8 hr 05/13/19 05/13/19 05/13/19 07:15 07:41 10:56 Temperature 97.9 F 97.5 F Pulse Rate 82 76 Respiratory 16 16 18 Rate Blood Pressure 106/61 111/71 (mmHg) O2 Sat by Pulse 100 100 Oximetry 05/13/19 05/13/19 05/13/19 11:24 12:01 12:32 Temperature Pulse Rate Respiratory 18 20 Rate Blood Pressure 121/67 (mmHg) O2 Sat by Pulse Oximetry Oxygen Devices in Use Now: None Appearance: Thin, elderly white male, laying in bed, appearing comfortable and in NAD Eyes: No Scleral Icterus, - - PERRL Ears/Nose/Mouth/Throat: Mucous Membranes Moist Neck: Trachea Midline Respiratory: Symmetrical Chest Expansion and Respiratory Effort, - - very faint crackles in bilateral lung bases, sounds consistent with atelectasis Cardiovascular: NL Sounds; No Murmurs; No JVD, RRR Abdominal: - - abd soft/nontender/nondistended Extremities: No Edema Skin: No Rash or Ulcers Neurological: Alert and Oriented x 3 Result Diagrams: 05/13/19 08:40 05/13/19 08:40 Additional Lab and Data: Lab Results 05/08/19 05/08/19 05/08/19 Range/Units 12:13 12:13 12:13 WBC 5.6 (3.5-10.8) 10^3/uL RBC 2.03 L (4.18-5.48) 10^6 /uL Hgb 7.0 L (14.0-18.0) g/dL Hct 21 L (42-52) % MCV 102 H (80-94) fL MCH 35 H (27-31) pg MCHC 34 (31-36) g/dL RDW 15 (10-15) % Plt Count 155 (150-450) 10^3/uL MPV 7.8 (7.4-10.4) fL Neut % (Auto) 80.9 % Lymph % (Auto) 5.9 % [place] % (Auto) 12.5 % Eos % (Auto) 0.2 % Baso % (Auto) 0.5 % Absolute Neuts (auto) 4.5 (1.5-7.7) 10^3/ul Absolute Lymphs (auto) 0.3 L (1.0-4.8) 10^3/ul Absolute Monos (auto) 0.7 (0-0.8) 10^3/ul Absolute Eos (auto) 0.0 (0-0.6) 10^3/ul Absolute Basos (auto) 0.0 (0-0.2) 10^3/ul Absolute Nucleated RBC 0.0 10^3/ul Nucleated RBC % 0.0 Sodium 138 (135-145) mmol/L Potassium 4.3 (3.5-5.0) mmol/L Chloride 106 (101-111) mmol/L Carbon Dioxide 28 (22-32) mmol/L Anion Gap 4 (2-11) mmol/L BUN 52 H (6-24) mg/dL Creatinine 0.73 (0.67-1.17) mg/dL Est GFR ( Amer) 123.3 (>60) Est GFR (Non-Af Amer) 101.9 (>60) BUN/Creatinine Ratio 71.2 H (8-20) Glucose 98 (70-100) mg/dL Calcium 9.3 (8.6-10.3) mg/dL Total Bilirubin 0.50 (0.2-1.0) mg/dL AST 14 (13-39) U/L ALT 9 (7-52) U/L Alkaline Phosphatase 38 (34-104) U/L Total Protein 5.5 L (6.4-8.9) g/dL Albumin 3.5 (3.2-5.2) g/dL Globulin 2.0 (2-4) g/dL Albumin/Globulin Ratio 1.8 (1-3) Blood Type A Positive Antibody Screen Negative Crossmatch See Detail Microbiology and Other Data: Microbiology 05/08/19 11:57 Stool Occult Blood (NILSA) - Final Stool Assess/Plan/Problems-Billing Assessment: 88 yo male with PMHx CACD, iron def anemia, pernicious anemia, prostate CA, neurogenic bladder and bowel presents for melena. 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 Bonner-Jose today and if H&H is not dropped this afternoon then no EGD today -po protonix BID started, should continue for 3 months per GI (2) Urinary retention Current Visit: Yes Status: Acute Code(s): R33.9 - RETENTION OF URINE, UNSPECIFIED SNOMED Code(s): 061755939 Comment: -patient has known neurogenic bladder but PVR bladder scan with >900 cc -indwelling woodard -renal US without hydronephrosis -Dr. Canela recommends leaving woodard in and f/u with him in office outpatient and will discuss intermittent straight cath (3) Pseudomonas urinary tract infection Current Visit: Yes Status: Acute Code(s): N39.0 - URINARY TRACT INFECTION, SITE NOT SPECIFIED; B96.5 - PSEUDOMONAS (MALLEI) CAUSING DISEASES CLASSD ELSR SNOMED Code(s): 854600307 Comment: -2/2 urinary retention -urine culture today demonstrates pseudomonas, awaiting S&S -changed abx to cefepime -afebrile (4) Hypotension Current Visit: Yes Status: Acute Comment: -resolved today -likely related to fluid shift in setting of significant urine retention (5) Acute blood loss anemia Current Visit: Yes Status: Acute Code(s): D62 - ACUTE POSTHEMORRHAGIC ANEMIA SNOMED Code(s): 064678241 Comment: -2/2 UGIB -mgmt as above (6) SHARI (iron deficiency anemia) Current Visit: Yes Status: Acute Code(s): D50.9 - IRON DEFICIENCY ANEMIA, UNSPECIFIED SNOMED Code(s): 36677184 Comment: -pt is anemic at baseline, though Hgb usually ~12 -continue iron supplement (7) CAD (coronary artery disease) Current Visit: No Status: Chronic Code(s): I25.10 - ATHSCL HEART DISEASE OF [place] CORONARY ARTERY W/O ANG PCTRS SNOMED Code(s): 98741248 Comment: - Continue statin - holding ASA for now in setting of GIB (8) Neurogenic bladder Current Visit: No Status: Chronic Code(s): N31.9 - NEUROMUSCULAR DYSFUNCTION OF BLADDER, UNSPECIFIED SNOMED Code(s): 679925160 Comment: - History of frequent UTIs - Urinary incontinence at times at baseline (9) Neurogenic bowel Current Visit: No Status: Chronic Code(s): K59.2 - NEUROGENIC BOWEL, NOT ELSEWHERE CLASSIFIED SNOMED Code(s): 824807752 Comment: - Continue fiber regimen, miralax, and MOM (10) Memory loss Current Visit: Yes Status: Acute Code(s): R41.3 - OTHER AMNESIA SNOMED Code(s): 56000282 Comment: -discussed with Dr. Lema and she tells me patient does have memory loss issues at baseline; she does also mention that the patient drinks more daily than recommended -patient has been having memory loss issues in the hospital and is sometimes agitated when nursing discusses events that have been documented; this has been fluctuating and appears more intact during the day today -d/c WAM (11) DNR (do not resuscitate) Current Visit: No Status: Acute (12) DVT prophylaxis Current Visit: No Status: Acute Code(s): [id number] - SNOMED Code(s): 322856979 Comment: - SCDs - chemoprophylaxis contraindicated in setting of GIB Status and Disposition: remains inpatient for monitoring of H&H, anticipate CURT at discharge, likely tomorrow if no repeat EGD needed today
[2019-05-13 14:35] LABS: Hematocrit 25 % (42-52); Hemoglobin 8.4 g/dL (14.0-18.0)
[2019-05-13] MEDS: Cefepime 2 GM in Dextrose(*) 2 GM/50 ML BAG IV SCH (14:40)
[2019-05-13] MEDS: Senna TAB 8.6 mg* TAB PO SCH (20:01)
[2019-05-14] MEDS: Hydrocodone/Acetamin 10/325 MG 1 TAB PO PRN ×2 (02:16→07:06)
[2019-05-14] MEDS: Cefepime 2 GM in Dextrose(*) 2 GM/50 ML BAG IV SCH (02:21)
[2019-05-14 06:35] LABS: ABS Eosinophils 0.1 10^3/ul (0-0.6); ABS Lymphocytes 0.5 10^3/ul (1.0-4.8); ABS Neutrophils 3.2 10^3/ul (1.5-7.7); Eosinophil % 2.5 %; Hematocrit 24 % (42-52); Hemoglobin 8.1 g/dL (14.0-18.0); Lymphocyte % 10.3 %; Mean Corpuscular HGB Conc 34 g/dL (31-36); Mean Corpuscular Hemoglobin 34 pg (27-31); Mean Corpuscular Volume 98 fL (80-94); Mean Platelet Volume 8.5 fL (7.4-10.4); Platelet Count 173 10^3/uL (150-450); Red Blood Count 2.43 10^6 /uL (4.18-5.48); Red Cell Distribution Width 19 % (10-15); White Blood Count 4.9 10^3/uL (3.5-10.8)
[2019-05-14] MEDS: Cholecalciferol TAB* 1000 UNITS PO SCH (09:03)
[2019-05-14] MEDS: Pantoprazole TAB * 40 MG TAB PO SCH (09:03)
[2019-05-14] MEDS: Atorvastatin* 10 MG TAB PO SCH (09:03)
[2019-05-14] MEDS: Folic Acid TAB* 1 MG PO SCH (09:03)
[2019-05-14] MEDS: Cyanocobalamin TAB* 500 MCG PO SCH (09:03)
[2019-05-14] MEDS: Multivitamins/Minerals TAB PO SCH (09:03)
[2019-05-14] MEDS: Ferrous Gluconate TAB* 324 MG TAB PO SCH (09:03)
[2019-05-14] MEDS: Thiamine TAB* 100 MG TAB PO SCH (09:05)
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
[2019-05-14 12:12] VITALS: BP 112/46
== END 2019-05-14 13:00 | DRG 919 ==
LOC: ED 11:41 → MED 14:02
PROVIDERS: ADMIT Internal Medicine; ATTEND Internal Medicine
PROC: 0W3P8ZZ Control Bleeding in Gastrointestinal Tract, Via Natural or Artificial Opening Endoscopic (ICD-10-PCS; principal; 2019-05-08)
PROC: 0DP08DZ Removal of Intraluminal Device from Upper Intestinal Tract, Via Natural or Artificial Opening Endoscopic (ICD-10-PCS; 2019-05-08)
PROC: 30233N1 Transfusion of Nonautologous Red Blood Cells into Peripheral Vein, Percutaneous Approach (ICD-10-PCS; 2019-05-08)
DX: T85.838A Hemorrhage due to other internal prosthetic devices, implants and grafts, initial encounter (principal); 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 lesion (hemorrhagic) of stomach and duodenum; N39.0 Urinary tract infection, site not specified; K59.2 Neurogenic bowel, not elsewhere classified; K92.1 Melena; D62 Acute posthemorrhagic anemia; B96.5 Pseudomonas (aeruginosa) (mallei) (pseudomallei) as the cause of diseases classified elsewhere; R33.9 Retention of urine, unspecified; I25.10 Atherosclerotic heart disease of native coronary artery without angina pectoris; D51.0 Vitamin B12 deficiency anemia due to intrinsic factor deficiency; Z66 Do not resuscitate; D50.9 Iron deficiency anemia, unspecified; N31.8 Other neuromuscular dysfunction of bladder; K31.9 Disease of stomach and duodenum, unspecified; N35.919 Unspecified urethral stricture, male, unspecified site; K21.9 Gastro-esophageal reflux disease without esophagitis; M54.30 Sciatica, unspecified side; R41.3 Other amnesia; M54.9 Dorsalgia, unspecified; K25.9 Gastric ulcer, unspecified as acute or chronic, without hemorrhage or perforation; I95.9 Hypotension, unspecified; Z85.46 Personal history of malignant neoplasm of prostate; Z95.5 Presence of coronary angioplasty implant and graft; Z79.82 Long term (current) use of aspirin; Z79.899 Other long term (current) drug therapy; Z88.1 Allergy status to other antibiotic agents; Z88.8 Allergy status to other drugs, medicaments and biological substances; Z91.048 Other nonmedicinal substance allergy status; Z82.3 Family history of stroke; Z80.42 Family history of malignant neoplasm of prostate; Z82.49 Family history of ischemic heart disease and other diseases of the circulatory system
CPT/HCPCS: 36415; 71046; 76770; 80048; 80053; 81003; 81015; 82270; 83735; 85014; 85018; 85025; 86850; 86900; 86901; 86922; 87077; 87086; 87186; 93005; 96374; 99156; 99157; 99284; A9270-GY; J0692; J0696; J2250; J2270; J3010; P9040

== ENCOUNTER 2019-06-10 17:10 | Emergency (ER) | payer MEDICARE ==
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
[2019-06-10 17:44] LABS: ABS Lymphocytes 0.3 10^3/ul (1.0-4.8); ABS Neutrophils 9.2 10^3/ul (1.5-7.7); Eosinophil % 0.1 %; Hematocrit 31 % (42-52); Hemoglobin 10.2 g/dL (14.0-18.0); Lymphocyte % 3.1 %; Mean Corpuscular HGB Conc 33 g/dL (31-36); Mean Corpuscular Hemoglobin 31 pg (27-31); Mean Corpuscular Volume 94 fL (80-94); Mean Platelet Volume 8.5 fL (7.4-10.4); Platelet Count 162 10^3/uL (150-450); Red Blood Count 3.33 10^6 /uL (4.18-5.48); Red Cell Distribution Width 17 % (10-15); White Blood Count 10.6 10^3/uL (3.5-10.8)
[2019-06-10 18:02] LABS: Albumin 3.6 g/dL (3.2-5.2); Albumin/Globulin Ratio 1.4 (1-3); Calcium 9.5 mg/dL (8.6-10.3); EGFR African American 119.5 (>60); EGFR Non-African American 98.7 (>60); Globulin 2.5 g/dL (2-4); Potassium 4.3 mmol/L (3.5-5.0); Total Bilirubin 0.4 mg/dL (0.2-1.0); Total Protein 6.1 g/dL (6.4-8.9)
--- OUTSIDE RECORDS SUMMARY | 2019-06-10 18:53 | XMS REPORT ---
:1930 Author Organization [facility] Care Team Providers Name Role Phone Unavailable Unavailable Unavailable Problems Condition Condition Condition Status Onset Resolution Last Treating Comments Name Details Category Date Date Treatment Clinician Date Gastrointes Gastrointes Diagnosis Active Brenda tinal tinal 3- Wendela hemorrhage, hemorrhage, [id number] unspecified unspecified Other Other Diagnosis Active Brenda retention retention 06-08 Wendela of urine of urine [id number] Allergies, Adverse Reactions, Alerts Allergy Name Allergy Status Severity Reaction(s) Onset Inactive Treating Comments Type Date Date Clinician carbamazepin Base Active Unknown Reaction 2017-03 [place] e Ingredient Unknown 04-18 Ga[place]ano phenytoin Base Active Unknown Reaction 2017-03 [place] Ingredient Unknown 04-18 [place] ampicillin Base Active Unknown Rash 2017-03 [place] Ingredient 04-18 [place]ano Medications Ordered Filled Start Stop Current Ordering Indication Dosage Frequency Signature Comments Components Medication Medication Date Date Medication? Clinician (SIG) Name Name No Known No Known No None None None Medications Medications For This For This Patient Patient Procedures This patient has no known procedures. Results This patient has no known results.
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
--- OUTSIDE RECORDS SUMMARY | 2019-06-10 18:53 | XMS REPORT | Continuity of Care Document ---
:1930 External Reference #:[id number] Author Name Juliana Hallman MD (transmitted by agent of provider Mellissa Samuels) Address [address] [place] [address] Care Team Providers Name Role Phone Alis Lema MD - Internal Medicine Care Team Information Founder President And Ceo Problems Active Problems Provider Date Mitral valve disorder Vic Goldman M.D. Onset: 03/05/2011 Coronary arteriosclerosis Shiva Cook M.D. Onset: 04/14/2011 Note: 2000 3 yrs after long-term; stent to LAD patent with cardiac cath in [place] Pure hypercholesterolemia Shiav Cook M.D. Onset: 04/14/2011 Restrictive cardiomyopathy secondary [...] a problem untill cholangitis admission 02/16/18 at [facility] Iron deficiency anemia Eder Pickens MD [...] as Unknown needed for constipation Metamucil Unknown [place] 2 tabs by mouth 120tabs Lauren 10-325mg [...] H/L Range Note CBC No Diff 05/24/2019 [facility] White Blood 3.2 10^3/uL Low 3.5-10.[address] [place] [address] [phone] Red Blood Count 2.63 10^6/uL Low 4.18-5.48 Hemoglobin 8.3 g/dL Low 14.0-18.0 Hematocrit 25 % Low 42-52 Mean Corpuscular Volume 96 fL High 80-94 Mean Corpuscular Hemoglobin 32 pg High 27-31 Mean Corpuscular HGB Conc 33 g/dL Normal 31-36 Red Cell Distribution Width 18 % High 10-15 Platelet Count 228 10^3/uL Normal 150-450 Mean Platelet Volume 8.4 fL Normal 7.4-10.4 Retic Count 05/24/2019 [facility] Maturation Factor Retic 2.[address] [place] [address] [phone] RBC Retic Count 2.63 10^6/uL Low 4.18-5.48 Hematocrit for Retic CNT 25 % Low 42-52 Retic Count 1.9 % High 0.5-1.5 Corrected Retic Count 1.1 % Normal 0.5-1.5 Retic Index 0.60 Mean Retic Volume 117.0 Immature Retic Fraction 0.51 1 [id number] Procedures Date Code Description Status 09/12/2009 [id number] Colonoscopy Completed Medical Devices Description No Information Available Encounters Type Date Location Provider Dx Diagnosis Office Visit 05/30/2019 9:45a [facility] Hallman MD R52 Pain, unspecified 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, unspecified foot Office Visit 05/27/2019 9:15a Ekta Han Cator, N31.9 Neuromuscular [place] MD dysfunction of bladder, unspecified 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, unspecified foot R54 Age-related physical debility 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 N39.0 Urinary tract infection, site not specified B96.5 Pseudomonas (mallei) causing diseases classd elswhr Office Visit 05/23/2019 9:15a [facility] Andrews A Cator, R54 Age- related physical MD debility 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 N39.0 Urinary tract infection, site not specified B96.5 Pseudomonas (mallei) causing diseases classd elsr N31.9 Neuromuscular dysfunction of bladder, unspecified 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, unspecified foot D50.9 Iron deficiency anemia, unspecified Office Visit 05/18/2019 8:30a [facility] Han Cator, R71.0 Precipitous drop in MD hematocrit R71.8 Other abnormality of red blood cells R54 Age-related physical debility 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 N39.0 Urinary tract infection, site not specified B96.5 Pseudomonas (mallei) causing diseases classd elsr N31.9 Neuromuscular dysfunction of bladder, unspecified Office Visit 05/16/2019 11:15a [facility] [place] A Cator, R54 Age- related physical debility 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 N39.0 Urinary tract infection, site not specified B96.5 Pseudomonas (mallei) causing diseases classd elsr N31.9 Neuromuscular dysfunction of bladder, unspecified D50.9 Iron deficiency anemia, unspecified 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, unspecified foot Office Visit 05/13/2019 2:15p [facility] Meggan D50.9 Iron deficiency Assoc,peggy Khan PA-C anemia, Hospitalists unspecified B96.5 Pseudomonas (mallei) causing diseases classd elsr N39.0 Urinary tract infection, site not specified N31.9 Neuromuscular dysfunction of bladder, unspecified Office Visit 05/12/2019 [facility] [place] K92.2 Gastrointestinal 2:15p Assoc,pc O'mallory, PA-C hemorrhage, Hospitalists unspecified D50.9 Iron deficiency anemia, unspecified I95.9 Hypotension, unspecified I25.10 Athscl heart disease of [place] coronary artery w/o [facility] Office Visit 05/11/2019 2:14p [facility] [place] D50.9 Iron deficiency Assoc,pc O'mallory, PA-C anemia, Hospitalists unspecified K92.2 Gastrointestinal hemorrhage, unspecified R33.9 Retention of urine, unspecified R41.3 Other amnesia Office Visit 05/10/2019 2:14p [facility] [place] D50.9 Iron deficiency Assoc,pc O'mallory, PA-C anemia, Hospitalists unspecified K92.2 Gastrointestinal hemorrhage, unspecified I25.10 Athscl heart disease of [place] coronary artery w/o [facility] Office Visit 05/09/2019 [facility] [place] D62 Acute posthemorrhagic 2:13p Assoc,pc O'mallory, PA-C anemia Hospitalists K92.2 Gastrointestinal hemorrhage, unspecified I25.10 Athscl heart disease of [place] coronary artery w/o [facility] Office Visit 05/08/2019 2:13p [facility] [place] D64.9 Anemia, Assoc,pc [place] unspecified Hospitalists K92.1 Melena Assessments Date [...] PA-C 05/12/2019 I25.10 Atherosclerotic heart disease of [place]gan O'mallory, PA-C coronary artery without angina [...] PA-C 05/10/2019 I25.10 Atherosclerotic heart disease of [place] Khan, PA-C coronary artery without angina pectoris 05/09/2019 D62 Acute posthemorrhagic anemia Meggan O'mallory, PA-C 05/09/2019 K92.2 Gastrointestinal hemorrhage, unspecified Meggan O'mallory, PA-C 05/09/2019 I25.10 Atherosclerotic heart disease of [place] Meg[place] Khan, PA-C coronary artery without angina pectoris 05/08/2019 D64.9 Anemia, unspecified CARLOS Starr 05/08/2019 K92.1 CARLOS Desir Plan of Treatment 05/23/2019 - Juliana Hallman, MDR54 Age-related physical debilityComments: Rehabilitation therapies will address his general conditioning.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 and duodenumComments:Stable.N39.0 Urinary tract infection, site not specifiedComments:Resolved.B96.5 Pseudomonas (aeruginosa) ( mallei) (pseudomallei) as the cause of diseases classified [id number] Neuromuscular dysfunction of bladder, unspecifiedComments:He has an indwelling No catheter until he follow up as an outpatient with Dr. Canela.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, unspecified footComments:Stable.D50.9 Iron deficiency anemia, unspecifiedComments:Stable. Functional Status Description No Information Available Mental Status Description No Information Available Referrals Description No Information Available
--- OUTSIDE RECORDS SUMMARY | 2019-06-10 18:53 | XMS REPORT | Continuity of Care Document ---
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 Onset: 03/05/2011 Coronary arteriosclerosis Shiva Cook M.D. Onset: 04/14/2011 Note: 2000 3 yrs after [facility]; stent to LAD patent with cardiac cath in [place] Pure hypercholesterolemia Shiva Cook M.D. Onset: 04/14/2011 [...] a problem untill cholangitis admission 02/16/18 at [facility] Iron deficiency anemia Eder Pickens MD [...] former iDocument: 02/20/11 smoker - .Progress Note CardiologyJessica in early Exercise Type/Frequency Exercises sporadically Allergies, [...] as Unknown needed for constipation Metamucil Unknown [place] 2 tabs by mouth 120tabs Lauren 10-325mg [...] H/L Range Note CBC No Diff 05/24/2019 [facility] White Blood 3.2 10^3/uL Low 3.5-10.[address] [place] [address] [phone] Red Blood Count 2.63 10^6/uL Low 4.18-5.48 Hemoglobin 8.3 g/dL Low 14.0-18.0 Hematocrit 25 % Low 42-52 Mean Corpuscular Volume 96 fL High 80-94 Mean Corpuscular Hemoglobin 32 pg High 27-31 Mean Corpuscular HGB Conc 33 g/dL Normal 31-36 Red Cell Distribution Width 18 % High 10-15 Platelet Count 228 10^3/uL Normal 150-450 Mean Platelet Volume 8.4 fL Normal 7.4-10.4 Retic Count 05/24/2019 [facility] Maturation Factor Retic 2.[address] [place] [address] [phone] RBC Retic Count 2.63 10^6/uL Low 4.18-5.48 Hematocrit for Retic CNT 25 % Low 42-52 Retic Count 1.9 % High 0.5-1.5 Corrected Retic Count 1.1 % Normal 0.5-1.5 Retic Index 0.60 Mean Retic Volume 117.0 Immature Retic Fraction 0.51 1 [id number] Procedures Date Code Description Status 09/12/2009 [id number] Colonoscopy Completed Medical Devices Description No Information Available Encounters Type Date Location Provider Dx Diagnosis Office Visit 05/23/2019 Ekta Hallman MD R54 Age-related physical 9:15a debility 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 N39.0 Urinary tract infection, site not specified B96.5 Pseudomonas (mallei) causing diseases classd elsr N31.9 Neuromuscular dysfunction of bladder, unspecified 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, unspecified foot D50.9 Iron deficiency anemia, unspecified Office Visit 05/18/2019 8:30a [facility] A Cator, R71.0 Precipitous drop in MD hematocrit R71.8 Other abnormality of red blood cells R54 Age-related physical debility 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 N39.0 Urinary tract infection, site not specified B96.5 Pseudomonas (mallei) causing diseases classd elswhr N31.9 Neuromuscular dysfunction of bladder, unspecified Office Visit 05/16/2019 11:15a [facility] Cator, R54 Age- related physical MD debility 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 N39.0 Urinary tract infection, site not specified B96.5 Pseudomonas (mallei) causing diseases classd elsr N31.9 Neuromuscular dysfunction of bladder, unspecified D50.9 Iron deficiency anemia, unspecified 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, unspecified foot Office Visit 05/13/2019 2:15p [facility] Meggan D50.9 Iron deficiency Assoc,pc O'mallory, PA-C anemia, Hospitalists unspecified B96.5 Pseudomonas (mallei) causing diseases classd elsr N39.0 Urinary tract infection, site not specified N31.9 Neuromuscular dysfunction of bladder, unspecified Office Visit 05/12/2019 [facility] Meggan K92.2 Gastrointestinal 2:15p Assoc,pc O'mallory, PA-C hemorrhage, Hospitalists unspecified D50.9 Iron deficiency anemia, unspecified I95.9 Hypotension, unspecified I25.10 Athscl heart disease of [place] coronary artery w/o ang pctrs Office Visit 05/11/2019 2:14p [facility] Meggan D50.9 Iron deficiency Assoc,pc O'mallory, PA-C anemia, Hospitalists unspecified K92.2 Gastrointestinal hemorrhage, unspecified R33.9 Retention of urine, unspecified R41.3 Other amnesia Office Visit 05/10/2019 2:14p [facility] Meggan D50.9 Iron deficiency Assoc,peggy Khan PA-C anemia, Hospitalists unspecified K92.2 Gastrointestinal hemorrhage, unspecified I25.10 Athscl heart disease of [place] coronary artery w/o [facility] pctrs Office Visit 05/09/2019 [facility] Meggan D62 Acute posthemorrhagic 2:13p Assoc,peggy Khan PA-C anemia Hospitalists K92.2 Gastrointestinal hemorrhage, unspecified I25.10 Athscl heart disease of [place] coronary artery w/o [facility] pctrs Office Visit 05/08/2019 2:13p [facility] Colby D64.9 Anemia, Assoc,CARLOS Theodore unspecified Hospitalists K92.1 Melena Assessments Date Code Description Provider 05/27/2019 R54 Age-related physical debility Juliana Hallman MD 05/27/2019 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 Juliana Hallman MD and duodenum 05/27/2019 N39.0 Urinary tract infection, site not specified Juliana Hallman MD 05/27/2019 B96.5 Pseudomonas (aeruginosa) (mallei) Juliana Hallman MD (pseudomallei) as the cause of diseases classified elsewhere 05/27/2019 N31.9 Neuromuscular dysfunction of bladder, Juliana Hallman MD unspecified 05/27/2019 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, unspecified foot Juliana Hallman MD 05/23/2019 R54 Age-related physical debility Juliana Hallman [...] 05/14/2019 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 CARLOS Pagan-C and duodenum 05/14/2019 D50.9 Iron deficiency anemia, unspecified Meggan O'mallory PA-C 05/14/2019 N39.0 Urinary tract infection, site not specified Meggan Penny'mallory , PA-C 05/14/2019 B96.5 Pseudomonas (aeruginosa) (mallei) CARLOS Pagan-C (pseudomallei) as the cause of diseases classified elsewhere 05/13/2019 D50.9 Iron deficiency anemia, unspecified Meggan Penny'mallory, PA-C 05/13/2019 B96.5 Pseudomonas (aeruginosa) (mallei) Meggan [...] PA-C 05/12/2019 I25.10 Atherosclerotic heart disease of [place] Meggan O'mallory, PA-C coronary artery without angina [...] PA-C 05/10/2019 I25.10 Atherosclerotic heart disease of [place] Meggan O'mallory, PA-C coronary artery without angina pectoris 05/09/2019 D62 Acute posthemorrhagic anemia Meggan O'mallory, PA-C 05/09/2019 K92.2 Gastrointestinal hemorrhage, unspecified Meggan O'mallory, PA-C 05/09/2019 I25.10 Atherosclerotic heart disease of [place] Meggan O'mallory, PA-C coronary artery without angina pectoris 05/08/2019 D64.9 Anemia, unspecified CARLOS Starr 05/08/2019 K92.1 CARLOS Desir Plan of Treatment No Information Available Functional Status Description No Information Available Mental Status Description No Information Available Referrals Description No Information Available
--- OUTSIDE RECORDS SUMMARY | 2019-06-10 18:53 | XMS REPORT | Continuity of Care Document ---
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 Onset: 03/05/2011 Coronary arteriosclerosis Shiva Cook M.D. Onset: 04/14/2011 Note: 2000 3 yrs after custodial; stent to LAD patent with cardiac cath in [place] Pure hypercholesterolemia Shiva Cook M.D. Onset: 04/14/2011 [...] a problem untill cholangitis admission 02/16/18 at [facility] Iron deficiency anemia Eder Pickens MD Onset: [...] 02/20/11 Unknown smoker - .Progress Note Cardiology, Fol in early Recreational Drug Use Denies Drug [...] as Unknown needed for constipation Metamucil Unknown [place] 2 tabs by mouth 120tabs Lauren 10-325mg [...] H/L Range Note CBC No Diff 05/24/2019 [facility] White Blood 3.2 10^3/uL Low 3.5-10.[address] [place] [address] [phone] Red Blood Count 2.63 10^6/uL Low 4.18-5.48 Hemoglobin 8.3 g/dL Low 14.0-18.0 Hematocrit 25 % Low 42-52 Mean Corpuscular Volume 96 fL High 80-94 Mean Corpuscular Hemoglobin 32 pg High 27-31 Mean Corpuscular HGB Conc 33 g/dL Normal 31-36 Red Cell Distribution Width 18 % High 10-15 Platelet Count 228 10^3/uL Normal 150-450 Mean Platelet Volume 8.4 fL Normal 7.4-10.4 Retic Count 05/24/2019 [facility] Maturation Factor Retic 2.[address] [place] [address] [phone] RBC Retic Count 2.63 10^6/uL Low 4.18-5.48 Hematocrit for Retic CNT 25 % Low 42-52 Retic Count 1.9 % High 0.5-1.5 Corrected Retic Count 1.1 % Normal 0.5-1.5 Retic Index 0.60 Mean Retic Volume 117.0 Immature Retic Fraction 0.51 1 [id number] Procedures Date Code Description Status 09/12/2009 [id number] Colonoscopy Completed Medical Devices Description No Information Available Encounters Type Date Location Provider Dx Diagnosis Office Visit 05/30/2019 9:45a OrlaAndrew Hallman MD R52 Pain, unspecified 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, unspecified foot Office Visit 05/27/2019 9:15a Ekta Hallman, N31.9 Neuromuscular [place] dysfunction of bladder, unspecified 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, unspecified foot R54 Age-related physical debility 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 N39.0 Urinary tract infection, site not specified B96.5 Pseudomonas (mallei) causing diseases classd elswhr Office Visit 05/23/2019 9:15a [facility] Floydor, R54 Age- related physical debility 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 N39.0 Urinary tract infection, site not specified B96.5 Pseudomonas (mallei) causing diseases classd elsr N31.9 Neuromuscular dysfunction of bladder, unspecified 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, unspecified foot D50.9 Iron deficiency anemia, unspecified Office Visit 05/18/2019 8:30a [place] [facility] Hallman, R71.0 Precipitous drop in MD hematocrit R71.8 Other abnormality of red blood cells R54 Age-related physical debility 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 lesion 2:15p Assoc,pc ELVA Khan (hemorrhagic) of Hospitalists stomach and duodenum D50.9 Iron deficiency anemia, unspecified N39.0 Urinary tract infection, site not specified B96.5 Pseudomonas (mallei) causing diseases classd elsr Office Visit 05/13/2019 2:15p [facility] Meggan D50.9 Iron deficiency Assoc,pc O'mallory, PA-C anemia, Hospitalists unspecified B96.5 Pseudomonas (mallei) causing diseases classd [facility] N39.0 Urinary tract infection, site not specified N31.9 Neuromuscular dysfunction of bladder, unspecified Office Visit 05/12/2019 [facility] Meggan K92.2 Gastrointestinal 2:15p Assoc,pc Penny'mallory, PA-C hemorrhage, Hospitalists unspecified D50.9 Iron deficiency anemia, unspecified I95.9 Hypotension, unspecified I25.10 Athscl heart disease of [place] [facility] Office Visit 05/11/2019 2:14p [facility] Meggan D50.9 Iron deficiency Assoc,pc Penny'mallory, PA-C anemia, Hospitalists unspecified K92.2 Gastrointestinal hemorrhage, unspecified R33.9 Retention of urine, unspecified R41.3 Other amnesia Office Visit 05/10/2019 [facility] Gastroenterology Eder Castle D64.9 Anemia, 7:00a MD Celio unspecified K92.1 Melena Office Visit 05/10/2019 2:14p [facility] Meggan D50.9 Iron deficiency Assoc,peggy Francis'mallory, PA-C anemia, Hospitalists unspecified K92.2 Gastrointestinal hemorrhage, unspecified I25.10 Athscl heart disease of [place] coronary [facility] Office Visit 05/09/2019 [facility] Meggan D62 Acute posthemorrhagic 2:13p Assoc,peggy Francis'mallory PA-C anemia Hospitalists K92.2 Gastrointestinal hemorrhage, unspecified I25.10 Athscl heart disease of [place] coronary [facility] Office Visit 05/08/2019 2:13p [facility] Colby D64.9 Anemia, Assoc,CARLOS Theodore unspecified Hospitalists K92.1 Melena Assessments Date Code Description Provider 06/03/2019 R54 Age-related physical debility Juliana Hallman MD 06/03/2019 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 Juliana Hallman MD and duodenum 06/03/2019 N39.0 Urinary tract infection, site not specified Juliana Hallman MD 06/03/2019 B96.5 Pseudomonas (aeruginosa) (mallei) Juliana Hallman MD (pseudomallei) as the cause of diseases classified elsewhere 06/03/2019 D50.9 Iron deficiency anemia, unspecified Juliana Hallman MD 06/03/2019 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, unspecified foot Juliana Hallman MD 06/03/2019 R52 Pain, unspecified Juliana Hallman MD 06/03/2019 N31.9 Neuromuscular dysfunction of bladder, Juliana Hallman MD unspecified 05/30/2019 R52 Pain, unspecified Juliana Hallman MD [...] of bladder, Juliana Hallman MD unspecified 05/23/2019 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, unspecified foot Juliana Hallman MD 05/23/2019 D50.9 Iron deficiency anemia, unspecified Juliana Hallman MD 05/18/2019 R71.0 Precipitous drop [...] 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 Meggan Khan PA-C and duodenum 05/14/2019 D50.9 Iron deficiency anemia, unspecified Meggandiana Khan PA-C 05/14/2019 N39.0 Urinary tract infection, site not specified Meggan O'mallory PA-C 05/14/2019 B96.5 Pseudomonas (aeruginosa) (mallei) CARLOS [...] PA-C 05/12/2019 I25.10 Atherosclerotic heart disease of [place] Meggan O'mallory, PA-C coronary artery without angina pectoris 05/11/2019 D50.9 Iron deficiency anemia, unspecified Meggan O'mallory, PA-C 05/11/2019 K92.2 Gastrointestinal hemorrhage, unspecified Meggan O'mallory, PA-C 05/11/2019 R33.9 Retention of urine, unspecified Meggan O'mallory, PA-C 05/11/2019 R41.3 Other amnesia Meggan O'mallory, PA-C 05/10/2019 D64.9 Anemia, unspecified Eder Pickens MD 05/10/2019 D50.9 Iron deficiency anemia, unspecified Meggan O'mallory, PA-C 05/10/2019 K92.1 Tita Pickens MD 05/10/2019 K92.2 Gastrointestinal hemorrhage, unspecified Meggan O'mallory, PA-C 05/10/2019 I25.10 Atherosclerotic heart disease of [place] Meggan O'mallory, PA-C coronary artery without angina pectoris 05/09/2019 D62 Acute posthemorrhagic anemia Meggan O'mallory, PA-C 05/09/2019 K92.2 Gastrointestinal hemorrhage, unspecified Meggan O'mallory, PA-C 05/09/2019 I25.10 Atherosclerotic heart disease of [place] Meggan Khan, ELVA coronary artery without angina pectoris 05/08/2019 D64.9 Anemia, unspecified CARLOS Starr 05/08/2019 K92.1 Tita CARLOS Starr Plan of Treatment 05/23/2019 - Juliana Hallman, MDR54 Age-related physical debilityComments: Rehabilitation therapies will address his general conditioning.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 and duodenumComments:Stable.N39.0 Urinary tract infection, site not specifiedComments:Resolved.B96.5 Pseudomonas (aeruginosa) ( mallei) (pseudomallei) as the cause of diseases classified xdoilwhklD83.9 Neuromuscular dysfunction of bladder, unspecifiedComments:He has an indwelling No catheter until he follow up as an outpatient with Dr. Canela.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, unspecified footComments:Stable.D50.9 Iron deficiency anemia, unspecifiedComments:Stable. Functional Status Description No Information Available Mental Status Description No Information Available Referrals Description No Information Available
--- OUTSIDE RECORDS SUMMARY | 2019-06-10 18:53 | XMS REPORT | Continuity of Care Document ---
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 Onset: 03/05/2011 Coronary arteriosclerosis Shiva Cook M.D. Onset: 04/14/2011 Note: 2000 3 yrs after custodial; stent to LAD patent with cardiac cath in [place] Pure hypercholesterolemia Shiva Cook M.D. Onset: 04/14/2011 [...] problem untill cholangitis admission 02/16/18 at [facility] Iron deficiency anemia Eder Pickens MD [...] Vic Dominguez 11/23/[address] Aspirin 1 po qd Unknown 81mg Tablets Senna Lax one po qday prn 30tabs Unknown 8.6mg Tablets Lipitor 1 by mouth every Unknown 10mg Tablets day Zolpidem 5mg q hs as needed Unknown Colace 250mg tab daily as Unknown needed for constipation Metamucil Unknown [place] 2 tabs by mouth 120tabs Lauren 10-325mg [...] H/L Range Note CBC No Diff 05/24/2019 [facility] White Blood 3.2 10^3/uL Low 3.5-10.[address] [place] [address] [phone] Red Blood Count 2.63 10^6/uL Low 4.18-5.48 Hemoglobin 8.3 g/dL Low 14.0-18.0 Hematocrit 25 % Low 42-52 Mean Corpuscular Volume 96 fL High 80-94 Mean Corpuscular Hemoglobin 32 pg High 27-31 Mean Corpuscular HGB Conc 33 g/dL Normal 31-36 Red Cell Distribution Width 18 % High 10-15 Platelet Count 228 10^3/uL Normal 150-450 Mean Platelet Volume 8.4 fL Normal 7.4-10.4 Retic Count 05/24/2019 [facility] Maturation Factor Retic 2.[address] [place] [address] [phone] RBC Retic Count 2.63 10^6/uL Low 4.18-5.48 Hematocrit for Retic CNT 25 % Low 42-52 Retic Count 1.9 % High 0.5-1.5 Corrected Retic Count 1.1 % Normal 0.5-1.5 Retic Index 0.60 Mean Retic Volume 117.0 Immature Retic Fraction 0.51 1 [id number] Procedures Date Code Description Status 09/12/2009 [id number] Colonoscopy Completed Medical Devices Description No Information Available Encounters Type Date Location Provider Dx Diagnosis Office Visit 05/30/2019 9:45a [place] [facility] Hallman MD R52 Pain, unspecified 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, unspecified foot Office Visit 05/27/2019 9:15a [place] Mar[place], N31.9 Neuromuscular [place] dysfunction of bladder, unspecified 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, unspecified foot R54 Age-related physical debility 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 N39.0 Urinary tract infection, site not specified B96.5 Pseudomonas (mallei) causing diseases classd elswhr Office Visit 05/23/2019 9:15a [place] [facility] Han Cator, R54 Age- related physical MD debility 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 N39.0 Urinary tract infection, site not specified B96.5 Pseudomonas (mallei) causing diseases classd elsr N31.9 Neuromuscular dysfunction of bladder, unspecified 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, unspecified foot D50.9 Iron deficiency anemia, unspecified Office Visit 05/18/2019 8:30a [place] [facility] Floydor, R71.0 Precipitous drop in MD hematocrit R71.8 Other abnormality of red blood cells R54 Age-related physical debility 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 N39.0 Urinary tract infection, site not specified B96.5 Pseudomonas (mallei) causing diseases classd elsr N31.9 Neuromuscular dysfunction of bladder, unspecified Office Visit 05/16/2019 11:15a [place] Floydor, R54 Age- related physical MD debility 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 N39.0 Urinary tract infection, site not specified B96.5 Pseudomonas (mallei) causing diseases classd elsr N31.9 Neuromuscular dysfunction of bladder, unspecified D50.9 Iron deficiency anemia, unspecified 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, unspecified foot Office Visit 05/13/2019 2:15p [facility] Meggan D50.9 Iron deficiency Assoc,peggy Khan PA-C anemia, Hospitalists unspecified B96.5 Pseudomonas (mallei) causing diseases classd elsr N39.0 Urinary tract infection, site not specified N31.9 Neuromuscular dysfunction of bladder, unspecified Office Visit 05/12/2019 [facility] Meggan K92.2 Gastrointestinal 2:15p Assoc,pc Penny'mallory, PA-C hemorrhage, Hospitalists unspecified D50.9 Iron deficiency anemia, unspecified I95.9 Hypotension, unspecified I25.10 Athscl heart disease of [place] [facility] Office Visit 05/11/2019 2:14p [facility] Meggan D50.9 Iron deficiency Assoc,pc Penny'mallory, PA-C anemia, Hospitalists unspecified K92.2 Gastrointestinal hemorrhage, unspecified R33.9 Retention of urine, unspecified R41.3 Other amnesia Office Visit 05/10/2019 [facility] Gastroenterology Eder Castle D64.9 Anemia, 7:00a MD Celio unspecified K92.1 Melena Office Visit 05/10/2019 2:14p [facility] Meggan D50.9 Iron deficiency Assoc,pc Penny'mallory, PA-C anemia, Hospitalists unspecified K92.2 Gastrointestinal hemorrhage, unspecified I25.10 Athscl heart disease of [place] [facility] Office Visit 05/09/2019 [facility] Meggan D62 Acute posthemorrhagic 2:13p Assoc,pc Penny'mallory, PA-C anemia Hospitalists K92.2 Gastrointestinal hemorrhage, unspecified I25.10 Athscl heart disease of [place] coronary [facility] Office Visit 05/08/2019 2:13p [facility] Colby D64.9 Anemia, Assoc,CARLOS Theodore unspecified [...] PA-C 05/12/2019 I25.10 Atherosclerotic heart disease of [place] Meggan O'mallory, PA-C coronary artery without angina pectoris 05/11/2019 D50.9 Iron deficiency anemia, unspecified Meggan O'mallory, PA-C 05/11/2019 K92.2 Gastrointestinal hemorrhage, unspecified Meggan O'mallory, PA-C 05/11/2019 R33.9 Retention of urine, unspecified Meggan O'mallory, PA-C 05/11/2019 R41.3 Other amnesia Meggan O'mallory, PA-C 05/10/2019 D64.9 Anemia, unspecified Eder Pickens MD 05/10/2019 D50.9 Iron deficiency anemia, unspecified Meggan O'mallory, PA-C 05/10/2019 K92.1 Tita Eder Pickens MD 05/10/2019 K92.2 Gastrointestinal hemorrhage, unspecified Meggan O'mallory, PA-C 05/10/2019 I25.10 Atherosclerotic heart disease of [place] Meggan O'mallory, PA-C coronary artery without angina pectoris 05/09/2019 D62 Acute posthemorrhagic anemia Meggan O'mallory, PA-C 05/09/2019 K92.2 Gastrointestinal hemorrhage, unspecified Meggan O'mallory, PA-C 05/09/2019 I25.10 Atherosclerotic heart disease of [place] Meggan O'mallory, PA-C coronary artery without angina pectoris 05/08/2019 D64.9 Anemia, unspecified CARLOS Starr 05/08/2019 K92.1 Tita CARLOS Starr Plan of Treatment 05/23/2019 - Juliana Hallman, MDR54 Age-related physical debilityComments: Rehabilitation therapies will address his general conditioning.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 and duodenumComments:Stable.N39.0 Urinary tract infection, site not specifiedComments:Resolved.B96.5 Pseudomonas (aeruginosa) ( mallei) (pseudomallei) as the cause of diseases classified lqeypdfulK66.9 Neuromuscular dysfunction of bladder, unspecifiedComments:He has an indwelling No catheter until he follow up as an outpatient with Dr. Canela.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, unspecified footComments:Stable.D50.9 Iron deficiency anemia, unspecifiedComments:Stable. Functional Status Description No Information Available Mental Status Description No Information Available Referrals Description No Information Available
[2019-06-10 19:29] VITALS: BP 133/79
== END 2019-06-10 19:28 | disposition home or self-care (01) ==
LOC: ED 17:10
DX: K59.00 Constipation, unspecified (principal); R10.9 Unspecified abdominal pain; Z86.711 Personal history of pulmonary embolism; I10 Essential (primary) hypertension; K21.9 Gastro-esophageal reflux disease without esophagitis; Z79.899 Other long term (current) drug therapy; Z79.890 Hormone replacement therapy; Z87.891 Personal history of nicotine dependence; I25.10 Atherosclerotic heart disease of native coronary artery without angina pectoris
CPT/HCPCS: 36415; 80053; 85025; 99283

== ENCOUNTER 2019-08-18 11:06 | Inpatient (IN) ==
[2019-08-18] MEDS ORDERED: oxyCODONE/Acetamin 5/325 mg TAB PO ONE (12:30)
[2019-08-18 13:42] LABS: Hematocrit 36 % (42-52); Hemoglobin 12.1 g/dL (14.0-18.0); Mean Corpuscular HGB Conc 34 g/dL (31-36); Mean Corpuscular Hemoglobin 30 pg (27-31); Mean Corpuscular Volume 90 fL (80-94); Red Blood Count 3.98 10^6 /uL (4.18-5.48); Red Cell Distribution Width 21 % (10-15); White Blood Count 7.3 10^3/uL (3.5-10.8)
[2019-08-18 13:45] LABS: Urine Appearance Cloudy; Urine Bilirubin Negative (Negative); Urine Blood Negative (Negative); Urine Color Amber; Urine Glucose Negative (Negative); Urine Ketones 1+ (Negative); Urine Nitrite Positive (Negative); Urine Protein Negative (Negative); Urine Specific Gravity 1.025 (1.010-1.030); Urine Urobilinogen Negative (Negative)
[2019-08-18 13:48] LABS: Urine Bacteria 1+ (Absent); Urine Red Blood Cell 2+(6-10/hpf) (Absent); Urine White Blood Cell 3+(>20/hpf) (Absent)
[2019-08-18 13:56] LABS: ALT 19 U/L (7-52); AST 29 U/L (13-39); Albumin 3.8 g/dL (3.2-5.2); Albumin/Globulin Ratio 1.6 (1-3); Alkaline Phosphatase 58 U/L (34-104); Anion Gap 9 mmol/L (2-11); BUN/Creatinine Ratio 32.9 (8-20); Blood Urea Nitrogen 24 mg/dL (6-24); CO2 Carbon Dioxide 28 mmol/L (22-32); Calcium 9.2 mg/dL (8.6-10.3); Chloride 98 mmol/L (101-111); EGFR African American 123.3 (>60); EGFR Non-African American 101.9 (>60); Globulin 2.4 g/dL (2-4); Glucose 78 mg/dL (70-100); Magnesium 1.8 mg/dL (1.9-2.7); Potassium 4.7 mmol/L (3.5-5.0); Sodium 135 mmol/L (135-145); Total Protein 6.2 g/dL (6.4-8.9)
[2019-08-18 14:19] LABS: TSH (Thyroid Stimulating Horm) 1.89 mcIU/mL (0.34-5.60)
[2019-08-18 14:23] LABS: ABS Lymphocytes 0.5 10^3/ul (1.0-4.8); ABS Monocytes 1.1 10^3/ul (0-0.8); Lymphocyte % 6.2 %; Mean Platelet Volume 8.3 fL (7.4-10.4); Platelet Count 98 10^3/uL (150-450)
[2019-08-18] MEDS ORDERED: Ondansetron 4 mg VIAL 2 MG/ML 2 ml VIAL IV ONE (15:15)
[2019-08-18] MEDS ORDERED: Morphine 4 MG/ML VIAL (1 ml) IV ONE ×2 (15:15→20:44)
[2019-08-18 16:51] LABS: Troponin I 0.04 ng/mL (<0.03)
[2019-08-18] MEDS ORDERED: Lidocaine PATCH 5% PATCH TRANSDERM ONE (17:00)
[2019-08-18 17:02] LABS: Troponin I 0.05 ng/mL (<0.03)
[2019-08-18] MEDS ORDERED: Cefepime 2 GM in Dextrose(*) 2 GM/50 ML BAG IV ONE (17:10)
[2019-08-18] MEDS ORDERED: NS 0.9% 1000 ml BAG 1,000 ML IV SCH (18:30)
[2019-08-18 21:42] LABS: Troponin I 0.05 ng/mL (<0.03)
[2019-08-18] MEDS: Lidocaine Patch REMOVE PATCH PATCH OFF SCH (22:44)
[2019-08-18] MEDS: Enoxaparin 40 MG/0.4 ML SYR(*) SUBCUT SCH (22:44)
[2019-08-19] MEDS ORDERED: Cefepime ADVAN(*) 1 GM in NS 0.9% 50 ML 50 ML IVPB SCH (05:45)
[2019-08-19] MEDS: Cefepime 1 GM in Dextrose(*) 1 GM/50 ML BAG IV SCH ×2 (06:07→17:03)
[2019-08-19 07:22] LABS: Hematocrit 33 % (42-52); Hemoglobin 11.1 g/dL (14.0-18.0); Mean Corpuscular HGB Conc 34 g/dL (31-36); Mean Corpuscular Hemoglobin 30 pg (27-31); Mean Corpuscular Volume 90 fL (80-94); Red Blood Count 3.66 10^6 /uL (4.18-5.48); Red Cell Distribution Width 22 % (10-15); White Blood Count 3.6 10^3/uL (3.5-10.8)
[2019-08-19 08:21] LABS: ABS Lymphocytes 0.4 10^3/ul (1.0-4.8); ABS Monocytes 0.3 10^3/ul (0-0.8); Lymphocyte % 10.5 %; Platelet Count Platelets clumped. 10^3/uL (150-450)
[2019-08-19 15:41] LABS: Troponin I 0.05 ng/mL (<0.03)
[2019-08-19] MEDS ORDERED: Thiamine 100 MG/ML 2 ml VIAL 100 MG, Folic Acid 1 MG, Multiple Vitamin IV ADULT 10 ML i... IV ONE (18:26)
[2019-08-19 18:51] LABS: % Iron Saturation 37 % (15-55); Iron 88 ug/dL (50-212); Total Iron Binding Capacity 238 mcg/dL (250-450); Transferrin 170 mg/dL (203-362)
[2019-08-19 19:17] LABS: Folate 17.88 ng/mL (>3.99)
[2019-08-19] MEDS: Lidocaine Patch REMOVE PATCH PATCH OFF SCH (21:31)
[2019-08-19] MEDS: Enoxaparin 40 MG/0.4 ML SYR(*) SUBCUT SCH (21:31)
[2019-08-20] MEDS: Cefepime 1 GM in Dextrose(*) 1 GM/50 ML BAG IV SCH (06:21)
[2019-08-20 08:01] LABS: Troponin I 0.04 ng/mL (<0.03)
[2019-08-20] MEDS ORDERED: Magnesium Hydroxide LIQ 30 ML UDC PO PRN (13:48)
[2019-08-20] MEDS ORDERED: Senna TAB 8.6 mg TAB PO PRN (13:48)
[2019-08-20] MEDS ORDERED: Iohexol 350 (CONTRAST) 500 ML MDV IV ONE (13:59)
[2019-08-20] MEDS: Magnesium Hydroxide LIQ 30 ML UDC PO SCH ×5 (14:29→21:32)
[2019-08-20] MEDS: Polyethylene Glycol 3350 17 GM PACKET PO PRN (20:58)
[2019-08-20] MEDS: Enoxaparin 40 MG/0.4 ML SYR(*) SUBCUT SCH (20:59)
[2019-08-20] MEDS: Lidocaine Patch REMOVE PATCH PATCH OFF SCH (20:59)
[2019-08-21] MEDS: Magnesium Hydroxide LIQ 30 ML UDC PO SCH ×9 (01:09→16:11)
[2019-08-21 06:30] LABS: BUN/Creatinine Ratio 19.4 (8-20); Calcium 8.7 mg/dL (8.6-10.3); EGFR African American 136.1 (>60); EGFR Non-African American 112.5 (>60); Potassium 4.6 mmol/L (3.5-5.0)
[2019-08-21 06:31] LABS: Hematocrit 33 % (42-52); Hemoglobin 11.2 g/dL (14.0-18.0); Mean Corpuscular HGB Conc 34 g/dL (31-36); Mean Corpuscular Hemoglobin 31 pg (27-31); Mean Corpuscular Volume 91 fL (80-94); Mean Platelet Volume 7.9 fL (7.4-10.4); Platelet Count 99 10^3/uL (150-450); Red Blood Count 3.62 10^6 /uL (4.18-5.48); Red Cell Distribution Width 21 % (10-15); White Blood Count 3.9 10^3/uL (3.5-10.8)
[2019-08-21] MEDS: Polyethylene Glycol 3350 17 GM PACKET PO PRN (09:56)
[2019-08-21] MEDS: Lidocaine Patch REMOVE PATCH PATCH OFF SCH (21:12)
[2019-08-21] MEDS: Enoxaparin 40 MG/0.4 ML SYR(*) SUBCUT SCH (21:17)
[2019-08-22 07:17] LABS: Hematocrit 33 % (42-52); Hemoglobin 11.1 g/dL (14.0-18.0); Mean Corpuscular HGB Conc 34 g/dL (31-36); Mean Corpuscular Hemoglobin 31 pg (27-31); Mean Corpuscular Volume 92 fL (80-94); Red Blood Count 3.59 10^6 /uL (4.18-5.48); Red Cell Distribution Width 22 % (10-15)
[2019-08-22 08:39] LABS: Platelet Count Platelets clumped. 10^3/uL (150-450); White Blood Count 3.9 10^3/uL (3.5-10.8)
[2019-08-22 08:43] LABS: ABS Eosinophils 0.1 10^3/ul (0-0.6); ABS Lymphocytes 0.6 10^3/ul (1.0-4.8); Eosinophil % 2.2 %; Nucleated Red Blood Cells % 0.1
[2019-08-22] MEDS ORDERED: Regadenoson 0.4 MG/5 ML SYRINGE ONE (14:15)
[2019-08-22] MEDS ORDERED: Aminophylline 25 MG/ML VIAL ONE (14:16)
[2019-08-22] MEDS: Enoxaparin 40 MG/0.4 ML SYR(*) SUBCUT SCH (21:52)
[2019-08-22] MEDS: Lidocaine Patch REMOVE PATCH PATCH OFF SCH (21:53)
[2019-08-23 13:08] LABS: Albumin 2.9 g/dL (3.4-4.7); Albumin/Globulin Ratio 1.12; Total Protein(PEP) 5.4 g/dL (6.3 - 7.9)
[2019-08-23] MEDS: Enoxaparin 40 MG/0.4 ML SYR(*) SUBCUT SCH (20:08)
[2019-08-23] MEDS: Lidocaine Patch REMOVE PATCH PATCH OFF SCH (20:09)
[2019-08-23] MEDS: OLOPATADINE 0.1% RIGHT EYE SCH (20:10)
[2019-08-24] MEDS: OLOPATADINE 0.1% RIGHT EYE SCH ×2 (09:17→20:46)
[2019-08-24] MEDS: Enoxaparin 40 MG/0.4 ML SYR(*) SUBCUT SCH (20:46)
[2019-08-24] MEDS: Lidocaine Patch REMOVE PATCH PATCH OFF SCH (20:47)
[2019-08-25] MEDS: OLOPATADINE 0.1% RIGHT EYE SCH (07:29)
[2019-08-25 08:24] VITALS: BP 118/64
== END 2019-08-25 11:30 | DRG 700 ==
LOC: ED 11:06 → MEDTELE 11:06
PROVIDERS: ADMIT Hospitalist; ATTEND Internal Medicine

== ENCOUNTER 2020-11-17 15:04 | Inpatient (IN) ==
[2020-11-17] MEDS ORDERED: metroNIDAZOLE IV 500 MG/100ML 500 MG/100 ML BAG IVPB ONE (15:42)
[2020-11-17] MEDS ORDERED: Cefepime 2 GM in NS 0.9% 50 ML 50 ML IVPB ONE (15:42)
[2020-11-17] MEDS ORDERED: NS 0.9% IV ONE (15:45)
[2020-11-17 15:51] LABS: ABS Lymphocytes 0.4 10^3/ul (1.0-4.8); ABS Monocytes 1.5 10^3/ul (0-0.8); Eosinophil % 0.1 %; Hematocrit 26 % (42-52); Hemoglobin 8.8 g/dL (14.0-18.0); Lymphocyte % 3.6 %; Mean Corpuscular HGB Conc 34 g/dL (31-36); Mean Corpuscular Hemoglobin 33 pg (27-31); Mean Corpuscular Volume 100 fL (80-94); Mean Platelet Volume 8.8 fL (7.4-10.4); Platelet Count 150 10^3/uL (150-450); Red Blood Count 2.63 10^6 /uL (4.18-5.48); Red Cell Distribution Width 15 % (10-15); White Blood Count 11.9 10^3/uL (3.5-10.8)
[2020-11-17 16:03] LABS: Urine Appearance Cloudy; Urine Bilirubin Negative (Negative); Urine Blood 3+ (Negative); Urine Color Amber; Urine Glucose Negative (Negative); Urine Ketones Negative (Negative); Urine Nitrite Negative (Negative); Urine Protein 2+(100 mg/dL) (Negative); Urine Urobilinogen Negative (Negative)
[2020-11-17 16:06] LABS: Activated Partial Thrombo Time 26.5 seconds (26.0-38.0)
[2020-11-17 16:09] LABS: ALT 10 U/L (7-52); AST 21 U/L (13-39); Albumin 3.4 g/dL (3.2-5.2); Albumin/Globulin Ratio 1.5 (1-3); Alkaline Phosphatase 47 U/L (35-149); Anion Gap 7 mmol/L (2-11); Blood Urea Nitrogen 21 mg/dL (6-24); CO2 Carbon Dioxide 25 mmol/L (22-32); Calcium 8.8 mg/dL (8.6-10.3); Chloride 103 mmol/L (101-111); EGFR African American 78.1 (>60); EGFR Non-African American 64.5 (>60); Globulin 2.2 g/dL (2-4); Glucose 148 mg/dL (70-100); Potassium 4.3 mmol/L (3.5-5.0); Sodium 135 mmol/L (135-145); Total Protein 5.6 g/dL (6.4-8.9)
[2020-11-17 16:13] LABS: Troponin I 0.03 ng/mL (<0.03); Urine Bacteria 1+ (Absent); Urine Red Blood Cell 3+(>10/hpf) (Absent); Urine Squamous Epithelial Cell Present (Absent); Urine White Blood Cell 3+(>20/hpf) (Absent); Urine Yeast Present (Absent)
[2020-11-17] MEDS ORDERED: Iohexol 300 (CONTRAST) 10 ML SDV IV ONE (16:25)
[2020-11-17] MEDS ORDERED: Cefepime 2 GM IV - ED ONCE IV ONE (17:00)
[2020-11-17] MEDS ORDERED: Vancomycin 1,000 MG in NS 0.9% 250 ml 250 ML IVPB ONE (17:00)
[2020-11-17] MEDS ORDERED: Calcium Carb (TUMS) 500 mg CHEW TAB PO PRN (21:19)
[2020-11-17 21:31] LABS: Alcohol, S < 13 mg/dL (<13)
[2020-11-17] MEDS: NS 0.9% 1000 ml BAG 1,000 ML IV SCH (23:10)
[2020-11-17 23:24] LABS: Hematocrit 23 % (42-52); Hemoglobin 7.9 g/dL (14.0-18.0)
[2020-11-17 23:43] LABS: Troponin I 0.05 ng/mL (<0.03)
[2020-11-18 02:17] LABS: ABS Lymphocytes 0.5 10^3/ul (1.0-4.8); ABS Monocytes 1.5 10^3/ul (0-0.8); Eosinophil % 0.1 %; Hematocrit 22 % (42-52); Hemoglobin 7.6 g/dL (14.0-18.0); Lymphocyte % 5.6 %; Mean Corpuscular HGB Conc 34 g/dL (31-36); Mean Corpuscular Hemoglobin 34 pg (27-31); Mean Corpuscular Volume 100 fL (80-94); Mean Platelet Volume 8.8 fL (7.4-10.4); Platelet Count 143 10^3/uL (150-450); Red Blood Count 2.24 10^6 /uL (4.18-5.48); Red Cell Distribution Width 15 % (10-15)
[2020-11-18 02:35] LABS: Calcium 8.4 mg/dL (8.6-10.3); EGFR African American 113.7 (>60); EGFR Non-African American 93.9 (>60); Potassium 4.5 mmol/L (3.5-5.0)
[2020-11-18 02:39] LABS: Troponin I 0.04 ng/mL (<0.03)
[2020-11-18] MEDS: cefTRIAXone 1 gm/50 mL NS BAG 1 GM/50 ML BAG IVPB SCH (06:18)
[2020-11-18] MEDS ORDERED: Perflutren Lipid Microsphere 3 ML VIAL ONE (08:01)
[2020-11-18] MEDS: NS 0.9% 1000 ml BAG 1,000 ML IV SCH (09:54)
[2020-11-18 11:04] LABS: % Iron Saturation 7 % (15-55); Iron 20 ug/dL (50-212); Total Iron Binding Capacity 267 mcg/dL (250-450); Transferrin 191 mg/dL (203-362); Unsaturated Iron Binding < 252 ug/dL
[2020-11-18 11:26] LABS: Ferritin 52.3 ng/mL (24-336)
[2020-11-18 11:29] LABS: Folate 14.02 ng/mL (5.90-24.80)
[2020-11-18 11:30] LABS: Vitamin B12 344 pg/mL (180-914)
[2020-11-18] MEDS ORDERED: Polyethylene Glycol 3350 17 GM PACKET PO PRN (15:44)
[2020-11-18] MEDS ORDERED: NS 0.9% 1000 ml BAG 1,000 ML IV ONE (16:39)
[2020-11-18 17:26] LABS: TSH Ultra Thyroid Stim Horm 2.12 mcIU/mL (0.34-5.60)
[2020-11-18 19:50] LABS: Hematocrit 21 % (42-52); Hemoglobin 7.1 g/dL (14.0-18.0); Mean Corpuscular HGB Conc 34 g/dL (31-36); Mean Corpuscular Hemoglobin 32 pg (27-31); Mean Corpuscular Volume 94 fL (80-94); Mean Platelet Volume 8.7 fL (7.4-10.4); Platelet Count 130 10^3/uL (150-450); Red Blood Count 2.23 10^6 /uL (4.18-5.48); Red Cell Distribution Width 20 % (10-15); White Blood Count 7.9 10^3/uL (3.5-10.8)
[2020-11-18 20:44] LABS: ABS Lymphocytes 0.3 10^3/ul (1.0-4.8); ABS Monocytes 1.6 10^3/ul (0-0.8); ABS Neutrophils 5.9 10^3/ul (1.5-7.7); Eosinophil % 0.2 %; Lymphocyte % 4.2 %; RBC Morphology Normal (Normal)
[2020-11-18] MEDS: HYDROmorphone 0.5 MG/0.5 ML SYRINGE IV SLOW PU PRN (22:18)
[2020-11-19] MEDS: HYDROmorphone 0.5 MG/0.5 ML SYRINGE IV SLOW PU PRN ×2 (02:16→08:06)
[2020-11-19] MEDS: cefTRIAXone 1 gm/50 mL NS BAG 1 GM/50 ML BAG IVPB SCH (05:35)
[2020-11-19 06:18] LABS: ABS Lymphocytes 0.4 10^3/ul (1.0-4.8); ABS Monocytes 1.5 10^3/ul (0-0.8); ABS Neutrophils 5.4 10^3/ul (1.5-7.7); Eosinophil % 0.4 %; Hematocrit 21 % (42-52); Hemoglobin 7.1 g/dL (14.0-18.0); Lymphocyte % 5.3 %; Mean Corpuscular HGB Conc 34 g/dL (31-36); Mean Corpuscular Hemoglobin 32 pg (27-31); Mean Corpuscular Volume 93 fL (80-94); Mean Platelet Volume 8.4 fL (7.4-10.4); Platelet Count 126 10^3/uL (150-450); Red Blood Count 2.24 10^6 /uL (4.18-5.48); Red Cell Distribution Width 20 % (10-15); White Blood Count 7.3 10^3/uL (3.5-10.8)
[2020-11-19 06:24] LABS: INR 1.03 (0.86-1.15)
[2020-11-19 06:29] LABS: Calcium 8.1 mg/dL (8.6-10.3); EGFR African American 153.9 (>60); EGFR Non-African American 127.2 (>60); Magnesium 1.8 mg/dL (1.9-2.7); Potassium 4.1 mmol/L (3.5-5.0)
[2020-11-19] MEDS ORDERED: Magnesium Sulfate 2 gm BAG 2 GM/50 ML BAG IVPB ONE (07:11)
[2020-11-19] MEDS ORDERED: HYDROmorphone 0.5 MG/0.5 ML SYRINGE IV SLOW PU ONE (08:49)
[2020-11-19] MEDS ORDERED: HYDROmorphone 1 MG/1 ML SYRINGE IV SLOW PU PRN (08:58)
[2020-11-19] MEDS ORDERED: Calcium Gluconate 2 GM in NS 0.9% 100 ml BAG 100 ML IV ONE (10:01)
[2020-11-19] MEDS ORDERED: HYDROmorphone 0.5 MG/0.5 ML SYRINGE ONE (13:15)
[2020-11-19] MEDS ORDERED: fentaNYL 100 mcg/2 ml 50 MCG/ML VIAL ONE ×2 (13:42→14:47)
[2020-11-19] MEDS ORDERED: Propofol 10 MG/ML 20 ML BTL ONE ×2 (13:42→19:41)
[2020-11-19] MEDS ORDERED: Ondansetron 4 mg VIAL 2 MG/ML 2 ml VIAL ONE ×2 (13:42→20:11)
[2020-11-19] MEDS ORDERED: Lidocaine 2% PF 5 ML VIAL ONE (13:42)
[2020-11-19] MEDS ORDERED: Dexamethasone IV 4 MG/ML VIAL 1 ml VIAL ONE (13:42)
[2020-11-19] MEDS ORDERED: Rocuronium 50 mg VIAL 10 mg/ml 5 ml VIAL (50 mg) ONE ×2 (13:43→16:37)
[2020-11-19] MEDS ORDERED: Famotidine IV 10 MG/ML 2 ml VIAL (20 mg) ONE (13:58)
[2020-11-19] MEDS ORDERED: Famotidine IV 10 MG/ML 2 ml VIAL (20 mg) IV SLOW PU ONE (13:58)
[2020-11-19] MEDS ORDERED: ceFAZolin 2 GM in NS PREMIX 2 GM/100 ML BAG IVPB ONE (14:06)
[2020-11-19 14:24] LABS: Hematocrit 29 % (42-52); Hemoglobin 9.8 g/dL (14.0-18.0); Mean Corpuscular HGB Conc 34 g/dL (31-36); Mean Corpuscular Hemoglobin 31 pg (27-31); Mean Corpuscular Volume 93 fL (80-94); Mean Platelet Volume 8.4 fL (7.4-10.4); Platelet Count 126 10^3/uL (150-450); Red Blood Count 3.14 10^6 /uL (4.18-5.48); Red Cell Distribution Width 18 % (10-15); White Blood Count 8.8 10^3/uL (3.5-10.8)
[2020-11-19] MEDS ORDERED: Phenylephrine IV 10 MG/ML 1 ml VIAL ONE ×2 (15:08)
[2020-11-19] MEDS ORDERED: Phenylephrine 40 mcg/mL 10mL (400mcg) SYRINGE ONE (15:08)
[2020-11-19] MEDS ORDERED: Ondansetron 4 mg VIAL 2 MG/ML 2 ml VIAL IV PRN (15:33)
[2020-11-19] MEDS ORDERED: Acetaminophen IV 1 GM/100ML 100 ML IV PRN (15:33)
[2020-11-19] MEDS ORDERED: Naloxone 0.4 mg VIAL 0.4 mg/ml 1 ml VIAL IV PRN (15:33)
[2020-11-19] MEDS ORDERED: HYDROmorphone 1 MG/1 ML SYRINGE IV PRN (15:33)
[2020-11-19] MEDS ORDERED: fentaNYL 100 mcg/2 ml 50 MCG/ML VIAL IV PRN (15:33)
[2020-11-19] MEDS ORDERED: HYDROmorphone 1 MG/1 ML SYRINGE ONE (17:11)
[2020-11-19] MEDS ORDERED: Bupivacaine 0.25% SDV 30 ML ONE ×2 (17:16→18:33)
[2020-11-19] MEDS ORDERED: ceFAZolin VIAL VIAL ONE ×2 (17:57)
[2020-11-19] MEDS ORDERED: Sugammadex 500 MG/5 ML 5 ml VIAL IV PUSH ONE (19:34)
[2020-11-19] MEDS ORDERED: Acetaminophen IV 1 GM/100ML 100 ML IV ONE (20:11)
[2020-11-19] MEDS: Cefepime 1 GM in Dextrose 1 GM/50 ML BAG IV SCH (21:40)
[2020-11-19 22:01] LABS: Troponin I 0.05 ng/mL (<0.03)
[2020-11-19] MEDS: HYDROmorphone 1 MG/1 ML SYRINGE IV SLOW PU PRN (22:54)
[2020-11-20 02:00] LABS: Troponin I 0.05 ng/mL (<0.03)
[2020-11-20] MEDS: Magnesium Hydroxide LIQ 30 ML UDC PO PRN ×3 (02:08→22:15)
[2020-11-20] MEDS: HYDROmorphone 1 MG/1 ML SYRINGE IV SLOW PU PRN ×4 (03:46→22:19)
[2020-11-20 06:51] LABS: ABS Lymphocytes 0.2 10^3/ul (1.0-4.8); ABS Monocytes 1.5 10^3/ul (0-0.8); ABS Neutrophils 6.9 10^3/ul (1.5-7.7); Hematocrit 20 % (42-52); Hemoglobin 6.9 g/dL (14.0-18.0); Lymphocyte % 2.8 %; Mean Corpuscular HGB Conc 35 g/dL (31-36); Mean Corpuscular Hemoglobin 32 pg (27-31); Mean Corpuscular Volume 92 fL (80-94); Mean Platelet Volume 8.3 fL (7.4-10.4); Platelet Count 118 10^3/uL (150-450); Red Blood Count 2.16 10^6 /uL (4.18-5.48); Red Cell Distribution Width 18 % (10-15); White Blood Count 8.7 10^3/uL (3.5-10.8)
[2020-11-20 07:08] LABS: Anion Gap 2 mmol/L (2-11); Blood Urea Nitrogen 15 mg/dL (6-24); CO2 Carbon Dioxide 26 mmol/L (22-32); Calcium 7.9 mg/dL (8.6-10.3); Chloride 109 mmol/L (101-111); EGFR African American 173.7 (>60); EGFR Non-African American 143.6 (>60); Glucose 116 mg/dL (70-100); Potassium 4.9 mmol/L (3.5-5.0); Sodium 137 mmol/L (135-145)
[2020-11-20] MEDS ORDERED: Calcium Gluconate 2 GM in NS 0.9% 100 ml BAG 100 ML IV ONE (07:41)
[2020-11-20 07:45] LABS: Troponin I 0.04 ng/mL (<0.03)
[2020-11-20] MEDS: Cefepime 1 GM in Dextrose 1 GM/50 ML BAG IV SCH ×2 (11:43→21:55)
[2020-11-20 15:16] LABS: Hematocrit 24 % (42-52); Mean Corpuscular HGB Conc 34 g/dL (31-36); Mean Corpuscular Hemoglobin 32 pg (27-31); Mean Corpuscular Volume 95 fL (80-94); Mean Platelet Volume 8.8 fL (7.4-10.4); Platelet Count 144 10^3/uL (150-450); Red Blood Count 2.48 10^6 /uL (4.18-5.48); Red Cell Distribution Width 18 % (10-15); White Blood Count 10.4 10^3/uL (3.5-10.8)
[2020-11-20 15:19] LABS: ABS Eosinophils 0.1 10^3/ul (0-0.6); ABS Lymphocytes 0.4 10^3/ul (1.0-4.8); ABS Monocytes 2.4 10^3/ul (0-0.8); ABS Neutrophils 7.6 10^3/ul (1.5-7.7); Eosinophil % 0.5 %; Lymphocyte % 3.8 %; Nucleated Red Blood Cells % 0.1
[2020-11-21] MEDS: HYDROmorphone 1 MG/1 ML SYRINGE IV SLOW PU PRN ×5 (03:24→21:04)
[2020-11-21 07:01] LABS: ABS Lymphocytes 0.4 10^3/ul (1.0-4.8); ABS Monocytes 1.5 10^3/ul (0-0.8); ABS Neutrophils 5.3 10^3/ul (1.5-7.7); Eosinophil % 0.5 %; Hematocrit 24 % (42-52); Hemoglobin 8.5 g/dL (14.0-18.0); Lymphocyte % 5.7 %; Mean Corpuscular HGB Conc 35 g/dL (31-36); Mean Corpuscular Hemoglobin 32 pg (27-31); Mean Corpuscular Volume 93 fL (80-94); Mean Platelet Volume 8.2 fL (7.4-10.4); Platelet Count 118 10^3/uL (150-450); Red Blood Count 2.63 10^6 /uL (4.18-5.48); Red Cell Distribution Width 17 % (10-15); White Blood Count 7.3 10^3/uL (3.5-10.8)
[2020-11-21 07:19] LABS: Calcium 7.9 mg/dL (8.6-10.3); EGFR Non-African American 132.2 (>60)
[2020-11-21 07:29] LABS: Potassium 5.2 mmol/L (3.5-5.0)
[2020-11-21] MEDS: Cefepime 1 GM in Dextrose 1 GM/50 ML BAG IV SCH ×2 (09:06→22:35)
[2020-11-21] MEDS ORDERED: Calcium Gluconate 2 GM in NS 0.9% 100 ml BAG 100 ML IV ONE (10:00)
[2020-11-21] MEDS ORDERED: HYDROmorphone 1 MG/1 ML SYRINGE IV SLOW PU ONE (17:06)
[2020-11-21] MEDS: Enoxaparin 40 MG/0.4 ML SYR SUBCUT SCH (22:27)
[2020-11-22] MEDS: HYDROmorphone 1 MG/1 ML SYRINGE IV SLOW PU PRN ×3 (00:28→23:31)
[2020-11-22] MEDS ORDERED: HYDROmorphone 1 MG/1 ML SYRINGE IV SLOW PU ONE (04:00)
[2020-11-22 06:08] LABS: Hematocrit 27 % (42-52); Hemoglobin 9.2 g/dL (14.0-18.0); Mean Corpuscular HGB Conc 34 g/dL (31-36); Mean Corpuscular Hemoglobin 32 pg (27-31); Mean Corpuscular Volume 94 fL (80-94); Mean Platelet Volume 8.3 fL (7.4-10.4); Platelet Count 199 10^3/uL (150-450); Red Blood Count 2.89 10^6 /uL (4.18-5.48); Red Cell Distribution Width 16 % (10-15); White Blood Count 11.7 10^3/uL (3.5-10.8)
[2020-11-22 06:23] LABS: Calcium 8.6 mg/dL (8.6-10.3); EGFR African American 170.1 (>60); EGFR Non-African American 140.6 (>60); Magnesium 1.9 mg/dL (1.9-2.7); Potassium 4.8 mmol/L (3.5-5.0)
[2020-11-22] MEDS ORDERED: Orphenadrine Citrate INJ 30 mg/ml 2 ml VIAL (60 mg) IV ONE (06:32)
[2020-11-22 08:15] LABS: ABS Lymphocytes 0.3 10^3/ul (1.0-4.8); ABS Monocytes 2.2 10^3/ul (0-0.8); ABS Neutrophils 9.1 10^3/ul (1.5-7.7); Eosinophil % 0.1 %; Lymphocyte % 2.9 %
[2020-11-22] MEDS ORDERED: Magnesium Sulfate IV 1GM/100ML 1 GM/100 ML BAG IV ONE (08:54)
[2020-11-22] MEDS: Cefepime 1 GM in Dextrose 1 GM/50 ML BAG IV SCH ×2 (09:32→20:04)
[2020-11-22] MEDS ORDERED: Lactated Ringers 500 ml BAG 500 ML IV ONE (11:59)
[2020-11-22 12:25] LABS: Phosphorus 2.2 mg/dL (2.5-5.0)
[2020-11-22] MEDS: Potassium & Sodium Phos 250 mg = 1 PACKET PO SCH ×2 (13:33→19:49)
[2020-11-22] MEDS ORDERED: D5W 1/2 NS 1000 ml BAG 1,000 ML IV ONE (15:33)
[2020-11-22] MEDS: Polyethylene Glycol 3350 17 GM PACKET PO SCH (15:54)
[2020-11-22] MEDS: Enoxaparin 40 MG/0.4 ML SYR SUBCUT SCH (19:49)
[2020-11-22] MEDS: Multivitamins/Minerals TAB PO SCH (21:39)
[2020-11-23 06:21] LABS: Hematocrit 26 % (42-52); Mean Corpuscular HGB Conc 35 g/dL (31-36); Mean Corpuscular Hemoglobin 32 pg (27-31); Mean Corpuscular Volume 94 fL (80-94); Mean Platelet Volume 8.3 fL (7.4-10.4); Platelet Count 204 10^3/uL (150-450); Red Blood Count 2.76 10^6 /uL (4.18-5.48); Red Cell Distribution Width 16 % (10-15); White Blood Count 12.1 10^3/uL (3.5-10.8)
[2020-11-23 06:28] LABS: ABS Lymphocytes 0.3 10^3/ul (1.0-4.8); ABS Monocytes 1.7 10^3/ul (0-0.8); ABS Neutrophils 10.1 10^3/ul (1.5-7.7); Eosinophil % 0.3 %; Lymphocyte % 2.3 %
[2020-11-23 06:38] LABS: Albumin 2.9 g/dL (3.2-5.2); Albumin/Globulin Ratio 1.2 (1-3); Calcium 8.6 mg/dL (8.6-10.3); EGFR African American 163.2 (>60); EGFR Non-African American 134.9 (>60); Globulin 2.5 g/dL (2-4); Phosphorus 3.2 mg/dL (2.5-5.0); Potassium 4.4 mmol/L (3.5-5.0); Total Bilirubin 1.3 mg/dL (0.2-1.0); Total Protein 5.4 g/dL (6.4-8.9)
[2020-11-23] MEDS: Multivitamins/Minerals TAB PO SCH (09:48)
[2020-11-23] MEDS: Cefepime 1 GM in Dextrose 1 GM/50 ML BAG IV SCH ×2 (09:48→21:13)
[2020-11-23] MEDS: Polyethylene Glycol 3350 17 GM PACKET PO SCH (09:48)
[2020-11-23] MEDS: HYDROmorphone 1 MG/1 ML SYRINGE IV SLOW PU PRN ×2 (11:13→15:18)
[2020-11-23 12:34] LABS: Direct Bilirubin 0.4 mg/dL (0.03-0.18); Indirect Bilirubin 0.9 mg/dL (0.3-1.0)
[2020-11-23] MEDS: Enoxaparin 40 MG/0.4 ML SYR SUBCUT SCH (21:20)
[2020-11-24 06:07] LABS: ABS Eosinophils 0.1 10^3/ul (0-0.6); ABS Lymphocytes 0.3 10^3/ul (1.0-4.8); ABS Monocytes 1.3 10^3/ul (0-0.8); ABS Neutrophils 8.8 10^3/ul (1.5-7.7); Eosinophil % 0.6 %; Hematocrit 26 % (42-52); Hemoglobin 8.7 g/dL (14.0-18.0); Lymphocyte % 2.5 %; Mean Corpuscular HGB Conc 34 g/dL (31-36); Mean Corpuscular Hemoglobin 32 pg (27-31); Mean Corpuscular Volume 95 fL (80-94); Mean Platelet Volume 8.2 fL (7.4-10.4); Platelet Count 248 10^3/uL (150-450); Red Blood Count 2.75 10^6 /uL (4.18-5.48); Red Cell Distribution Width 16 % (10-15); White Blood Count 10.4 10^3/uL (3.5-10.8)
[2020-11-24 06:27] LABS: Albumin 2.7 g/dL (3.2-5.2); Albumin/Globulin Ratio 1.1 (1-3); Calcium 8.2 mg/dL (8.6-10.3); Direct Bilirubin 0.2 mg/dL (0.03-0.18); EGFR African American 170.1 (>60); EGFR Non-African American 140.6 (>60); Globulin 2.4 g/dL (2-4); Magnesium 2.1 mg/dL (1.9-2.7); Potassium 4.6 mmol/L (3.5-5.0); Total Bilirubin 1.2 mg/dL (0.2-1.0); Total Protein 5.1 g/dL (6.4-8.9)
[2020-11-24] MEDS: Cefepime 1 GM in Dextrose 1 GM/50 ML BAG IV SCH (08:59)
[2020-11-24] MEDS: Polyethylene Glycol 3350 17 GM PACKET PO SCH (08:59)
[2020-11-24] MEDS: Multivitamins/Minerals TAB PO SCH (09:00)
[2020-11-24] MEDS: HYDROmorphone 1 MG/1 ML SYRINGE IV SLOW PU PRN (09:42)
[2020-11-24] MEDS ORDERED: Lactated Ringers 500 ml BAG 500 ML IV SCH (10:00)
[2020-11-24] MEDS: Enoxaparin 40 MG/0.4 ML SYR SUBCUT SCH (22:26)
[2020-11-24 22:33] LABS: Urine Appearance Cloudy; Urine Bilirubin Negative (Negative); Urine Blood 1+ (Negative); Urine Color Yellow; Urine Glucose Negative (Negative); Urine Ketones Negative (Negative); Urine Nitrite Negative (Negative); Urine Protein Negative (Negative); Urine Specific Gravity 1.008 (1.002-1.030); Urine Urobilinogen Negative (Negative)
[2020-11-24 22:35] LABS: Urine Bacteria 1+ (Absent); Urine Red Blood Cell Trace(0-2/hpf) (Absent); Urine Squamous Epithelial Cell Present (Absent); Urine White Blood Cell 3+(>20/hpf) (Absent)
[2020-11-25 04:04] LABS: Hematocrit 27 % (42-52); Hemoglobin 9.3 g/dL (14.0-18.0); Mean Corpuscular HGB Conc 34 g/dL (31-36); Mean Corpuscular Hemoglobin 32 pg (27-31); Mean Corpuscular Volume 94 fL (80-94); Mean Platelet Volume 8.1 fL (7.4-10.4); Platelet Count 305 10^3/uL (150-450); Red Blood Count 2.87 10^6 /uL (4.18-5.48); Red Cell Distribution Width 16 % (10-15); White Blood Count 8.6 10^3/uL (3.5-10.8)
[2020-11-25 04:20] LABS: Calcium 8.1 mg/dL (8.6-10.3); EGFR African American 173.7 (>60); EGFR Non-African American 143.6 (>60); Magnesium 2.1 mg/dL (1.9-2.7); Potassium 4.4 mmol/L (3.5-5.0)
[2020-11-25] MEDS: Polyethylene Glycol 3350 17 GM PACKET PO SCH (08:55)
[2020-11-25] MEDS: Multivitamins/Minerals TAB PO SCH (08:55)
[2020-11-25] MEDS: Enoxaparin 40 MG/0.4 ML SYR SUBCUT SCH (20:34)
[2020-11-26 06:04] LABS: ABS Basophils 0.1 10^3/ul (0-0.2); ABS Eosinophils 0.2 10^3/ul (0-0.6); ABS Lymphocytes 0.4 10^3/ul (1.0-4.8); ABS Monocytes 1.4 10^3/ul (0-0.8); ABS Neutrophils 6.8 10^3/ul (1.5-7.7); Eosinophil % 2.7 %; Hematocrit 27 % (42-52); Hemoglobin 9.1 g/dL (14.0-18.0); Lymphocyte % 4.3 %; Mean Corpuscular HGB Conc 34 g/dL (31-36); Mean Corpuscular Hemoglobin 32 pg (27-31); Mean Corpuscular Volume 94 fL (80-94); Mean Platelet Volume 7.6 fL (7.4-10.4); Platelet Count 352 10^3/uL (150-450); Red Blood Count 2.89 10^6 /uL (4.18-5.48); Red Cell Distribution Width 16 % (10-15); White Blood Count 8.8 10^3/uL (3.5-10.8)
[2020-11-26 06:19] LABS: Calcium 8.1 mg/dL (8.6-10.3); EGFR African American 181.5 (>60); Magnesium 2.1 mg/dL (1.9-2.7); Potassium 4.2 mmol/L (3.5-5.0)
[2020-11-26] MEDS: Multivitamins/Minerals TAB PO SCH (08:26)
[2020-11-26] MEDS: Nystatin TOP POWDER 15 GM BTL TOPICAL SCH ×2 (08:27→21:13)
[2020-11-26] MEDS: Polyethylene Glycol 3350 17 GM PACKET PO SCH (08:27)
[2020-11-26] MEDS: Enoxaparin 40 MG/0.4 ML SYR SUBCUT SCH (21:12)
[2020-11-27 07:28] VITALS: BP 121/76
[2020-11-27] MEDS: Polyethylene Glycol 3350 17 GM PACKET PO SCH (08:45)
[2020-11-27] MEDS: Multivitamins/Minerals TAB PO SCH (08:45)
[2020-11-27] MEDS: Nystatin TOP POWDER 15 GM BTL TOPICAL SCH (08:48)
== END 2020-11-27 11:45 | DRG 477 ==
LOC: ED 15:04 → SUATTDRO 22:15 → SSU 22:15
PROVIDERS: ADMIT Hospitalist; ATTEND Internal Medicine

== ENCOUNTER 2020-11-30 10:31 | Inpatient (IN) ==
[2020-11-30] MEDS ORDERED: Morphine 4 MG/ML VIAL (1 ml) IV ONE (11:11)
[2020-11-30 11:44] LABS: Hematocrit 29 % (42-52); Hemoglobin 9.6 g/dL (14.0-18.0); Mean Corpuscular HGB Conc 33 g/dL (31-36); Mean Corpuscular Hemoglobin 31 pg (27-31); Mean Corpuscular Volume 95 fL (80-94); Mean Platelet Volume 7.7 fL (7.4-10.4); Platelet Count 518 10^3/uL (150-450); Red Blood Count 3.08 10^6 /uL (4.18-5.48); Red Cell Distribution Width 16 % (10-15); White Blood Count 13.3 10^3/uL (3.5-10.8)
[2020-11-30 12:09] LABS: Anisocytosis 1+; Hypochromasia 1+; Polychromasia 1+
[2020-11-30 12:10] LABS: ABS Eosinophils 0.1 10^3/ul (0-0.6); ABS Lymphocytes 0.3 10^3/ul (1.0-4.8); ABS Monocytes 1.4 10^3/ul (0-0.8); ABS Neutrophils 11.4 10^3/ul (1.5-7.7); Eosinophil % 0.8 %; Lymphocyte % 2.5 %
[2020-11-30 12:11] LABS: Albumin 3.1 g/dL (3.2-5.2); Albumin/Globulin Ratio 1.1 (1-3); CRP High Sensitivity 40.1 mg/L (<2.00); Calcium 8.7 mg/dL (8.6-10.3); EGFR African American 173.7 (>60); EGFR Non-African American 143.6 (>60); Globulin 2.9 g/dL (2-4); Potassium 4.6 mmol/L (3.5-5.0); Total Bilirubin 0.9 mg/dL (0.2-1.0)
[2020-11-30] MEDS ORDERED: HYDROmorphone 1 MG/1 ML SYRINGE IV SLOW PU ONE (12:43)
[2020-11-30 15:26] LABS: Body Fluid Source Synovial Fluid
[2020-11-30] MEDS ORDERED: HYDROmorphone 1 MG/1 ML SYRINGE IV ONE (15:46)
[2020-11-30] MEDS ORDERED: oxyCODONE/Acetamin 10/325(NF) TAB PO ONE (17:17)
[2020-11-30] MEDS ORDERED: oxyCODONE/Acetamin 5/325 mg TAB PO ONE (18:15)
[2020-11-30 18:30] LABS: Body Fluid Appearance Cloudy; Body Fluid Mono 12 %; Body Fluid Total Cells Counted 200
[2020-11-30 18:31] LABS: Body Fluid Color Amber
[2020-11-30] MEDS ORDERED: Senna TAB 8.6 mg TAB PO PRN (20:19)
[2020-11-30] MEDS ORDERED: Calcium Carb (TUMS) 500 mg CHEW TAB PO PRN (20:19)
[2020-11-30] MEDS ORDERED: HYDROcodone/ACETAMIN 5/325 mg TAB PO PRN (20:24)
[2020-11-30 20:52] LABS: Rapid COVID-19 Molecular Undetected (Undetected)
[2020-11-30] MEDS ORDERED: Enoxaparin 40 MG/0.4 ML SYR SUBCUT SCH (21:00)
[2020-11-30] MEDS: HYDROmorphone 1 MG/1 ML SYRINGE IV SLOW PU PRN (22:01)
[2020-11-30] MEDS: CMCS: Olopatadine 0.1% OPHTH (NF) 1 DROP BTL BOTH EYES SCH (23:37)
[2020-12-01] MEDS ORDERED: NS 0.9% 1000 ml BAG 1,000 ML IV SCH (04:00)
[2020-12-01 06:41] LABS: ABS Lymphocytes 0.3 10^3/ul (1.0-4.8); ABS Monocytes 1.4 10^3/ul (0-0.8); ABS Neutrophils 9.9 10^3/ul (1.5-7.7); Hematocrit 28 % (42-52); Hemoglobin 9.7 g/dL (14.0-18.0); Lymphocyte % 2.4 %; Mean Corpuscular HGB Conc 34 g/dL (31-36); Mean Corpuscular Hemoglobin 32 pg (27-31); Mean Corpuscular Volume 93 fL (80-94); Mean Platelet Volume 7.6 fL (7.4-10.4); Platelet Count 529 10^3/uL (150-450); Red Blood Count 3.05 10^6 /uL (4.18-5.48); Red Cell Distribution Width 16 % (10-15); White Blood Count 11.7 10^3/uL (3.5-10.8)
[2020-12-01 08:08] LABS: Erythrocyte Sed Rate 72 mm/Hr (0-19)
[2020-12-01 08:15] LABS: C Reactive Protein 43.57 mg/L (<8.01)
[2020-12-01] MEDS: Polyethylene Glycol 3350 17 GM PACKET PO SCH (09:10)
[2020-12-01] MEDS: CMCS: Olopatadine 0.1% OPHTH (NF) 1 DROP BTL BOTH EYES SCH ×3 (09:14→20:24)
[2020-12-01] MEDS: HYDROmorphone 1 MG/1 ML SYRINGE IV SLOW PU PRN ×2 (09:36→22:03)
[2020-12-01] MEDS ORDERED: Gadoteridol (CONTRAST) 279.3 MG/ML 10 ML IV ONE (11:37)
[2020-12-01] MEDS: HYDROcodone/ACETAMIN 5/325 mg TAB PO PRN ×2 (12:03→20:22)
[2020-12-01] MEDS ORDERED: fentaNYL 100 mcg/2 ml 50 MCG/ML VIAL ONE ×3 (13:57→17:16)
[2020-12-01] MEDS ORDERED: Midazolam 5 mg/5 ml VIAL 1 mg/ml 5 ml VIAL (5 mg) ONE (13:57)
[2020-12-01] MEDS ORDERED: Dexamethasone IV 4 MG/ML VIAL 1 ml VIAL ONE (13:58)
[2020-12-01] MEDS ORDERED: ROPIVACAINE 5 MG/ML 30 ML BTL (0.5%) ONE (14:11)
[2020-12-01] MEDS ORDERED: ceFAZolin 2 GM in NS PREMIX 2 GM/100 ML BAG IVPB ONE (14:44)
[2020-12-01] MEDS ORDERED: Ketamine HCL 50 mg/ml 10 ml VIAL (500 MG) ONE (15:13)
[2020-12-01] MEDS ORDERED: Propofol 10 MG/ML 20 ML BTL ONE ×2 (15:26→16:04)
[2020-12-01] MEDS ORDERED: oxyCODONE/Acetamin 5/325 mg TAB PO PRN (16:29)
[2020-12-01] MEDS ORDERED: Ondansetron 4 mg VIAL 2 MG/ML 2 ml VIAL IV PRN (16:29)
[2020-12-01] MEDS ORDERED: DiMENhydriNATE IV 50 mg/ml 1 ml VIAL IV PUSH PRN (16:29)
[2020-12-01] MEDS ORDERED: Naloxone 0.4 mg VIAL 0.4 mg/ml 1 ml VIAL IV PRN (16:29)
[2020-12-01] MEDS: fentaNYL 100 mcg/2 ml 50 MCG/ML VIAL IV PRN ×3 (16:46→17:16)
[2020-12-01] MEDS ORDERED: Vancomycin per Pharmacy 1 EA NOTE FOLLOW UP PRN (18:03)
[2020-12-01] MEDS ORDERED: Vancomycin 1000 MG in NS 0.9% 250 ML IVPB ONE (20:00)
[2020-12-01] MEDS ORDERED: ceFAZolin 2 GM in NS PREMIX 2 GM/100 ML BAG IVPB SCH (23:00)
[2020-12-02] MEDS: HYDROcodone/ACETAMIN 5/325 mg TAB PO PRN ×3 (03:30→17:37)
[2020-12-02 05:08] LABS: Hematocrit 28 % (42-52); Hemoglobin 9.5 g/dL (14.0-18.0); Mean Corpuscular HGB Conc 34 g/dL (31-36); Mean Corpuscular Hemoglobin 32 pg (27-31); Mean Corpuscular Volume 93 fL (80-94); Mean Platelet Volume 7.6 fL (7.4-10.4); Platelet Count 552 10^3/uL (150-450); Red Blood Count 3.03 10^6 /uL (4.18-5.48); Red Cell Distribution Width 17 % (10-15)
[2020-12-02 05:22] LABS: C Reactive Protein 99.27 mg/L (<8.01); Calcium 8.3 mg/dL (8.6-10.3); EGFR African American 194.4 (>60); EGFR Non-African American 160.6 (>60); Magnesium 1.9 mg/dL (1.9-2.7); Potassium 4.5 mmol/L (3.5-5.0)
[2020-12-02 05:28] LABS: ABS Basophils 0.1 10^3/ul (0-0.2); ABS Lymphocytes 0.2 10^3/ul (1.0-4.8); ABS Monocytes 0.6 10^3/ul (0-0.8); ABS Neutrophils 9.1 10^3/ul (1.5-7.7); Lymphocyte % 2.1 %
[2020-12-02] MEDS: HYDROmorphone 1 MG/1 ML SYRINGE IV SLOW PU PRN (06:15)
[2020-12-02] MEDS: Vancomycin 1000 MG in NS 0.9% 250 ML IVPB SCH ×2 (06:16→19:06)
[2020-12-02] MEDS: Polyethylene Glycol 3350 17 GM PACKET PO SCH (08:33)
[2020-12-02] MEDS: CMCS: Olopatadine 0.1% OPHTH (NF) 1 DROP BTL BOTH EYES SCH ×2 (08:34→21:33)
[2020-12-02] MEDS ORDERED: Flu vaccine *QUAD* 2021-22* 0.5 ML SYRINGE IM ONE (09:00)
[2020-12-02] MEDS ORDERED: HYDROcodone/ACETAMIN 5/325 mg TAB PO PRN (10:38)
[2020-12-02] MEDS: Nystatin TOP POWDER 15 GM BTL TOPICAL SCH ×3 (11:55→21:37)
[2020-12-02] MEDS ORDERED: Enoxaparin 40 MG/0.4 ML SYR SUBCUT SCH (21:00)
[2020-12-02] MEDS: Enoxaparin 40 MG/0.4 ML SYR SUBCUT SCH (21:36)
[2020-12-03] MEDS: HYDROcodone/ACETAMIN 5/325 mg TAB PO PRN ×3 (01:40→23:13)
[2020-12-03] MEDS ORDERED: Vancomycin Trough Check NOTE FOLLOW UP ONE (06:00)
[2020-12-03 07:36] LABS: Vancomycin Trough 9.7 mcg/mL
[2020-12-03] MEDS: Vancomycin 1000 MG in NS 0.9% 250 ML IVPB SCH ×2 (08:00→19:15)
[2020-12-03] MEDS: CMCS: Olopatadine 0.1% OPHTH (NF) 1 DROP BTL BOTH EYES SCH ×2 (08:04→21:05)
[2020-12-03] MEDS: Nystatin TOP POWDER 15 GM BTL TOPICAL SCH ×3 (08:05→21:04)
[2020-12-03] MEDS: Polyethylene Glycol 3350 17 GM PACKET PO SCH (08:07)
[2020-12-03 08:16] LABS: C Reactive Protein 45.62 mg/L (<8.01)
[2020-12-03 10:21] LABS: ABS Eosinophils 0.1 10^3/ul (0-0.6); ABS Lymphocytes 0.3 10^3/ul (1.0-4.8); ABS Monocytes 0.8 10^3/ul (0-0.8); ABS Neutrophils 5.1 10^3/ul (1.5-7.7); Eosinophil % 0.9 %; Hematocrit 31 % (42-52); Lymphocyte % 4.8 %; Mean Corpuscular HGB Conc 33 g/dL (31-36); Mean Corpuscular Hemoglobin 31 pg (27-31); Mean Corpuscular Volume 95 fL (80-94); Mean Platelet Volume 7.6 fL (7.4-10.4); Platelet Count 337 10^3/uL (150-450); Red Blood Count 3.21 10^6 /uL (4.18-5.48); Red Cell Distribution Width 17 % (10-15); White Blood Count 6.2 10^3/uL (3.5-10.8)
[2020-12-03] MEDS: Enoxaparin 40 MG/0.4 ML SYR SUBCUT SCH (21:04)
[2020-12-04 06:02] LABS: ABS Eosinophils 0.1 10^3/ul (0-0.6); ABS Lymphocytes 0.5 10^3/ul (1.0-4.8); ABS Neutrophils 5.3 10^3/ul (1.5-7.7); Eosinophil % 0.9 %; Hematocrit 27 % (42-52); Hemoglobin 9.1 g/dL (14.0-18.0); Lymphocyte % 6.9 %; Mean Corpuscular HGB Conc 34 g/dL (31-36); Mean Corpuscular Hemoglobin 32 pg (27-31); Mean Corpuscular Volume 93 fL (80-94); Mean Platelet Volume 7.5 fL (7.4-10.4); Platelet Count 475 10^3/uL (150-450); Red Blood Count 2.88 10^6 /uL (4.18-5.48); Red Cell Distribution Width 16 % (10-15); White Blood Count 6.9 10^3/uL (3.5-10.8)
[2020-12-04] MEDS: Vancomycin 1000 MG in NS 0.9% 250 ML IVPB SCH ×2 (06:13→21:08)
[2020-12-04 06:21] LABS: C Reactive Protein 24.48 mg/L (<8.01); Calcium 8.6 mg/dL (8.6-10.3); EGFR African American 185.6 (>60); EGFR Non-African American 153.4 (>60); Potassium 4.3 mmol/L (3.5-5.0)
[2020-12-04] MEDS: HYDROcodone/ACETAMIN 5/325 mg TAB PO PRN ×2 (08:00→18:06)
[2020-12-04] MEDS: Polyethylene Glycol 3350 17 GM PACKET PO SCH (08:01)
[2020-12-04] MEDS: Nystatin TOP POWDER 15 GM BTL TOPICAL SCH ×3 (08:01→21:17)
[2020-12-04] MEDS: CMCS: Olopatadine 0.1% OPHTH (NF) 1 DROP BTL BOTH EYES SCH ×2 (08:01→21:17)
[2020-12-04] MEDS: Enoxaparin 40 MG/0.4 ML SYR SUBCUT SCH (21:13)
[2020-12-05 04:35] LABS: C Reactive Protein 29.33 mg/L (<8.01); EGFR African American 163.2 (>60); EGFR Non-African American 134.9 (>60)
[2020-12-05 04:45] LABS: Vancomycin Trough 19.6 mcg/mL
[2020-12-05] MEDS ORDERED: Vancomycin Trough Check NOTE FOLLOW UP ONE (06:00)
[2020-12-05] MEDS: Vancomycin 1000 MG in NS 0.9% 250 ML IVPB SCH (06:27)
[2020-12-05] MEDS: Polyethylene Glycol 3350 17 GM PACKET PO SCH (09:26)
[2020-12-05] MEDS: CMCS: Olopatadine 0.1% OPHTH (NF) 1 DROP BTL BOTH EYES SCH ×2 (09:27→20:43)
[2020-12-05] MEDS: Nystatin TOP POWDER 15 GM BTL TOPICAL SCH ×3 (09:27→20:43)
[2020-12-05] MEDS ORDERED: Vancomycin 1000 MG in NS 0.9% 250 ML IVPB SCH (18:00)
[2020-12-05] MEDS: Vancomycin 1,000 MG in NS 0.9% 250 ml 250 ML IVPB SCH (18:27)
[2020-12-05] MEDS: Senna TAB 8.6 mg TAB PO PRN (20:37)
[2020-12-05] MEDS: Enoxaparin 40 MG/0.4 ML SYR SUBCUT SCH (20:38)
[2020-12-05] MEDS ORDERED: Vancomycin 750 MG in NS 0.9% 250 ML IVPB SCH (21:00)
[2020-12-06] MEDS: Vancomycin 1,000 MG in NS 0.9% 250 ml 250 ML IVPB SCH ×2 (06:12→19:27)
[2020-12-06] MEDS: Magnesium Hydroxide LIQ 30 ML UDC PO PRN ×2 (09:52→22:50)
[2020-12-06] MEDS: Nystatin TOP POWDER 15 GM BTL TOPICAL SCH ×3 (09:53→22:50)
[2020-12-06] MEDS: CMCS: Olopatadine 0.1% OPHTH (NF) 1 DROP BTL BOTH EYES SCH ×2 (09:53→22:51)
[2020-12-06] MEDS: Polyethylene Glycol 3350 17 GM PACKET PO SCH (09:54)
[2020-12-06] MEDS ORDERED: HYDROmorphone 1 MG/1 ML SYRINGE IV SLOW PU ONE (14:18)
[2020-12-06] MEDS ORDERED: HYDROmorphone 1 MG/1 ML SYRINGE ONE (14:21)
[2020-12-06] MEDS: Senna TAB 8.6 mg TAB PO PRN (22:48)
[2020-12-06] MEDS: Enoxaparin 40 MG/0.4 ML SYR SUBCUT SCH (22:49)
[2020-12-07] MEDS: Vancomycin 1,000 MG in NS 0.9% 250 ml 250 ML IVPB SCH ×2 (06:59→19:06)
[2020-12-07] MEDS: Polyethylene Glycol 3350 17 GM PACKET PO SCH (09:39)
[2020-12-07] MEDS: CMCS: Olopatadine 0.1% OPHTH (NF) 1 DROP BTL BOTH EYES SCH ×2 (09:39→20:34)
[2020-12-07] MEDS: Nystatin TOP POWDER 15 GM BTL TOPICAL SCH ×3 (09:45→20:34)
[2020-12-07] MEDS: HYDROmorphone 1 MG/1 ML SYRINGE IV SLOW PU PRN ×2 (10:48→17:25)
[2020-12-07 11:59] LABS: C Reactive Protein 218.24 mg/L (<8.01)
[2020-12-07 16:01] LABS: Hematocrit 30 % (42-52); Hemoglobin 9.6 g/dL (14.0-18.0); Mean Corpuscular HGB Conc 33 g/dL (31-36); Mean Corpuscular Hemoglobin 31 pg (27-31); Mean Corpuscular Volume 94 fL (80-94); Mean Platelet Volume 8.5 fL (7.4-10.4); Platelet Count 436 10^3/uL (150-450); Red Blood Count 3.16 10^6 /uL (4.18-5.48); Red Cell Distribution Width 16 % (10-15); White Blood Count 16.1 10^3/uL (3.5-10.8)
[2020-12-07 16:15] LABS: Albumin/Globulin Ratio 1.1 (1-3); Calcium 8.3 mg/dL (8.6-10.3); EGFR African American 173.7 (>60); EGFR Non-African American 143.6 (>60); Globulin 2.8 g/dL (2-4); Total Bilirubin 0.7 mg/dL (0.2-1.0); Total Protein 5.8 g/dL (6.4-8.9)
[2020-12-07 16:23] LABS: ABS Basophils 0.2 10^3/ul (0-0.2); ABS Lymphocytes 0.3 10^3/ul (1.0-4.8); ABS Monocytes 2.8 10^3/ul (0-0.8); ABS Neutrophils 12.8 10^3/ul (1.5-7.7); Eosinophil % 0.1 %; Lymphocyte % 2.2 %; Nucleated Red Blood Cells % 0.1
[2020-12-07] MEDS: NS 0.9% 1000 ml BAG 1,000 ML IV SCH (17:52)
[2020-12-07 19:11] LABS: Erythrocyte Sed Rate 90 mm/Hr (0-19)
[2020-12-07] MEDS: Enoxaparin 40 MG/0.4 ML SYR SUBCUT SCH (20:33)
[2020-12-08] MEDS: HYDROmorphone 1 MG/1 ML SYRINGE IV SLOW PU PRN (03:18)
[2020-12-08 05:19] LABS: Hematocrit 26 % (42-52); Hemoglobin 8.6 g/dL (14.0-18.0); Mean Corpuscular HGB Conc 33 g/dL (31-36); Mean Corpuscular Hemoglobin 31 pg (27-31); Mean Corpuscular Volume 94 fL (80-94); Mean Platelet Volume 8.5 fL (7.4-10.4); Platelet Count 303 10^3/uL (150-450); Red Blood Count 2.81 10^6 /uL (4.18-5.48); Red Cell Distribution Width 16 % (10-15); White Blood Count 25.1 10^3/uL (3.5-10.8)
[2020-12-08 05:28] LABS: ABS Basophils 0.1 10^3/ul (0-0.2); ABS Lymphocytes 0.3 10^3/ul (1.0-4.8); ABS Monocytes 2.3 10^3/ul (0-0.8); ABS Neutrophils 22.4 10^3/ul (1.5-7.7)
[2020-12-08 05:40] LABS: Calcium 8.4 mg/dL (8.6-10.3); EGFR African American 145.4 (>60); EGFR Non-African American 120.2 (>60); Potassium 4.9 mmol/L (3.5-5.0); Vancomycin Trough 18.3 mcg/mL
[2020-12-08] MEDS: Vancomycin 1,000 MG in NS 0.9% 250 ml 250 ML IVPB SCH ×2 (05:56→19:15)
[2020-12-08] MEDS ORDERED: Vancomycin Trough Check NOTE FOLLOW UP ONE (06:00)
[2020-12-08] MEDS: CMCS: Olopatadine 0.1% OPHTH (NF) 1 DROP BTL BOTH EYES SCH ×2 (08:44→20:12)
[2020-12-08] MEDS: Nystatin TOP POWDER 15 GM BTL TOPICAL SCH ×3 (08:44→20:11)
[2020-12-08 08:45] LABS: C Reactive Protein 268.76 mg/L (<8.01)
[2020-12-08] MEDS: Polyethylene Glycol 3350 17 GM PACKET PO SCH (08:45)
[2020-12-08 11:24] LABS: Body Fluid Source Synovial Fluid
[2020-12-08] MEDS: NS 0.9% 1000 ml BAG 1,000 ML IV SCH (11:27)
[2020-12-08 12:54] LABS: Body Fluid WBC 81391 /mcL
[2020-12-08 14:03] LABS: Body Fluid Appearance Cloudy; Body Fluid Color Yellow; Body Fluid Mono 9 %; Body Fluid Total Cells Counted 200
[2020-12-08] MEDS: Enoxaparin 40 MG/0.4 ML SYR SUBCUT SCH (20:12)
[2020-12-09] MEDS: HYDROmorphone 1 MG/1 ML SYRINGE IV SLOW PU PRN ×3 (00:23→18:46)
[2020-12-09] MEDS: NS 0.9% 1000 ml BAG 1,000 ML IV SCH ×2 (02:18→18:38)
[2020-12-09 04:41] LABS: ABS Lymphocytes 0.3 10^3/ul (1.0-4.8); ABS Monocytes 1.7 10^3/ul (0-0.8); ABS Neutrophils 13.9 10^3/ul (1.5-7.7); Eosinophil % 0.1 %; Hematocrit 26 % (42-52); Hemoglobin 8.2 g/dL (14.0-18.0); Mean Corpuscular HGB Conc 32 g/dL (31-36); Mean Corpuscular Hemoglobin 30 pg (27-31); Mean Corpuscular Volume 94 fL (80-94); Mean Platelet Volume 8.7 fL (7.4-10.4); Platelet Count 249 10^3/uL (150-450); Red Blood Count 2.73 10^6 /uL (4.18-5.48); Red Cell Distribution Width 16 % (10-15); White Blood Count 15.9 10^3/uL (3.5-10.8)
[2020-12-09 04:53] LABS: Albumin 2.4 g/dL (3.2-5.2); Albumin/Globulin Ratio 0.8 (1-3); C Reactive Protein 223.45 mg/L (<8.01); Calcium 8.4 mg/dL (8.6-10.3); EGFR African American 166.6 (>60); EGFR Non-African American 137.7 (>60); Potassium 4.7 mmol/L (3.5-5.0); Total Bilirubin 0.3 mg/dL (0.2-1.0); Total Protein 5.4 g/dL (6.4-8.9)
[2020-12-09] MEDS: Vancomycin 1,000 MG in NS 0.9% 250 ml 250 ML IVPB SCH ×2 (06:10→18:51)
[2020-12-09] MEDS: Polyethylene Glycol 3350 17 GM PACKET PO SCH (10:05)
[2020-12-09] MEDS: CMCS: Olopatadine 0.1% OPHTH (NF) 1 DROP BTL BOTH EYES SCH ×2 (10:14→20:34)
[2020-12-09] MEDS: Nystatin TOP POWDER 15 GM BTL TOPICAL SCH ×3 (10:15→20:34)
[2020-12-09] MEDS: Enoxaparin 40 MG/0.4 ML SYR SUBCUT SCH (20:54)
[2020-12-10] MEDS: HYDROmorphone 1 MG/1 ML SYRINGE IV SLOW PU PRN ×4 (00:45→21:50)
[2020-12-10 04:57] LABS: ABS Lymphocytes 0.3 10^3/ul (1.0-4.8); ABS Monocytes 0.8 10^3/ul (0-0.8); Hematocrit 25 % (42-52); Hemoglobin 8.2 g/dL (14.0-18.0); Lymphocyte % 3.7 %; Mean Corpuscular HGB Conc 33 g/dL (31-36); Mean Corpuscular Hemoglobin 31 pg (27-31); Mean Corpuscular Volume 93 fL (80-94); Mean Platelet Volume 8.1 fL (7.4-10.4); Platelet Count 293 10^3/uL (150-450); Red Blood Count 2.66 10^6 /uL (4.18-5.48); Red Cell Distribution Width 16 % (10-15); White Blood Count 9.1 10^3/uL (3.5-10.8)
[2020-12-10 05:23] LABS: Albumin 2.4 g/dL (3.2-5.2); Albumin/Globulin Ratio 0.8 (1-3); Calcium 8.2 mg/dL (8.6-10.3); EGFR African American 181.5 (>60); Globulin 2.9 g/dL (2-4); Potassium 4.7 mmol/L (3.5-5.0); Total Bilirubin 0.3 mg/dL (0.2-1.0); Total Protein 5.3 g/dL (6.4-8.9)
[2020-12-10] MEDS: Vancomycin 1,000 MG in NS 0.9% 250 ml 250 ML IVPB SCH ×2 (05:57→18:10)
[2020-12-10] MEDS: Polyethylene Glycol 3350 17 GM PACKET PO SCH (08:03)
[2020-12-10 08:46] LABS: C Reactive Protein 118.49 mg/L (<8.01)
[2020-12-10] MEDS: Nystatin TOP POWDER 15 GM BTL TOPICAL SCH ×3 (08:55→21:51)
[2020-12-10] MEDS: CMCS: Olopatadine 0.1% OPHTH (NF) 1 DROP BTL BOTH EYES SCH ×2 (08:55→21:51)
[2020-12-10] MEDS ORDERED: Gadoteridol (CONTRAST) 279.3 MG/ML 10 ML IV ONE (13:26)
[2020-12-10] MEDS: Enoxaparin 40 MG/0.4 ML SYR SUBCUT SCH (21:27)
[2020-12-10 23:35] LABS: Anaplasma phagocytophilum Negative (Negative); B. miyamotoi PCR, B Negative (Negative); Babesia divergens/MO-1 Negative (Negative); Babesia ducani Negative (Negative); Ehrlichia chaffeensis Negative (Negative); Ehrlichia ewingii/canis Negative (Negative); Ehrlichia muris eauclairensis Negative (Negative)
[2020-12-11] MEDS: NS 0.9% 1000 ml BAG 1,000 ML IV SCH (04:08)
[2020-12-11] MEDS: HYDROmorphone 1 MG/1 ML SYRINGE IV SLOW PU PRN ×2 (04:08→11:02)
[2020-12-11] MEDS: Vancomycin 1,000 MG in NS 0.9% 250 ml 250 ML IVPB SCH ×2 (06:14→18:38)
[2020-12-11 07:28] LABS: ABS Lymphocytes 0.4 10^3/ul (1.0-4.8); ABS Monocytes 0.7 10^3/ul (0-0.8); ABS Neutrophils 4.2 10^3/ul (1.5-7.7); Eosinophil % 0.1 %; Hematocrit 26 % (42-52); Hemoglobin 8.8 g/dL (14.0-18.0); Lymphocyte % 6.8 %; Mean Corpuscular HGB Conc 33 g/dL (31-36); Mean Corpuscular Hemoglobin 31 pg (27-31); Mean Corpuscular Volume 92 fL (80-94); Mean Platelet Volume 8.2 fL (7.4-10.4); Platelet Count 287 10^3/uL (150-450); Red Blood Count 2.87 10^6 /uL (4.18-5.48); Red Cell Distribution Width 16 % (10-15); White Blood Count 5.3 10^3/uL (3.5-10.8)
[2020-12-11 07:44] LABS: Albumin 2.4 g/dL (3.2-5.2); Albumin/Globulin Ratio 0.8 (1-3); Calcium 8.3 mg/dL (8.6-10.3); EGFR African American 203.9 (>60); EGFR Non-African American 168.5 (>60); Globulin 2.9 g/dL (2-4); Potassium 4.4 mmol/L (3.5-5.0); Total Bilirubin 0.4 mg/dL (0.2-1.0); Total Protein 5.3 g/dL (6.4-8.9)
[2020-12-11] MEDS: Polyethylene Glycol 3350 17 GM PACKET PO SCH (09:16)
[2020-12-11] MEDS: Nystatin TOP POWDER 15 GM BTL TOPICAL SCH ×3 (09:21→23:05)
[2020-12-11] MEDS: CMCS: Olopatadine 0.1% OPHTH (NF) 1 DROP BTL BOTH EYES SCH ×2 (09:21→23:06)
[2020-12-11 12:16] LABS: Cyclic Citrullinated Pept IgG <15.6 U
[2020-12-11 13:59] LABS: B. garinii/B. afzellii PCR Negative (Negative); Lyme Disease Source SYNOVIAL
[2020-12-11] MEDS ORDERED: HYDROmorphone 0.5 MG/0.5 ML SYRINGE IV SLOW PU ONE (15:23)
[2020-12-11] MEDS ORDERED: Bupivacaine 0.5% W/EPI SDV 10 ML VIAL INJ ONE (17:05)
[2020-12-11] MEDS ORDERED: Acetaminophen IV 1 GM/100ML 100 ML IV ONE ×2 (17:12→19:59)
[2020-12-11] MEDS ORDERED: Buffered Lidocaine 1% SYRIN 1 ml INTRADERM ONE (17:12)
[2020-12-11] MEDS ORDERED: Lactated Ringers 1000 ml BAG 1,000 ML IV SCH (18:00)
[2020-12-11] MEDS ORDERED: Rocuronium 50 mg VIAL 10 mg/ml 5 ml VIAL (50 mg) ONE ×2 (18:38→19:15)
[2020-12-11] MEDS ORDERED: fentaNYL 100 mcg/2 ml 50 MCG/ML VIAL ONE ×2 (18:40→22:29)
[2020-12-11] MEDS ORDERED: Lidocaine 2% PF 5 ML VIAL ONE (18:41)
[2020-12-11] MEDS ORDERED: Propofol 10 MG/ML 20 ML BTL ONE (18:41)
[2020-12-11] MEDS ORDERED: HYDROmorphone 1 MG/1 ML SYRINGE ONE ×3 (19:11→21:39)
[2020-12-11] MEDS ORDERED: EPHEDrine (Pressors) 50 MG/ML VIAL ONE (19:18)
[2020-12-11] MEDS ORDERED: Ondansetron 4 mg VIAL 2 MG/ML 2 ml VIAL ONE (19:19)
[2020-12-11] MEDS ORDERED: Metoclopramide 5 MG/ML VIAL (10 mg) ONE (19:19)
[2020-12-11] MEDS ORDERED: Dexamethasone IV 4 MG/ML VIAL 1 ml VIAL ONE (19:30)
[2020-12-11] MEDS ORDERED: HYDROcodone/ACETAMIN 5/325 mg TAB PO PRN (19:47)
[2020-12-11] MEDS ORDERED: Naloxone 0.4 mg VIAL 0.4 mg/ml 1 ml VIAL IV PRN (19:47)
[2020-12-11] MEDS ORDERED: fentaNYL 100 mcg/2 ml 50 MCG/ML VIAL IV PRN (19:47)
[2020-12-11] MEDS ORDERED: Ondansetron 4 mg VIAL 2 MG/ML 2 ml VIAL IV PRN (19:47)
[2020-12-11] MEDS ORDERED: Metoclopramide 5 MG/ML VIAL (10 mg) IV PRN (19:47)
[2020-12-11] MEDS ORDERED: diPHENhydraMINE IV 50 MG/ML 1 ml VIAL (BENADRYL) IV PRN (19:47)
[2020-12-11 21:40] LABS: Body Fluid Source Synovial Fluid
[2020-12-11] MEDS: HYDROmorphone 1 MG/1 ML SYRINGE IV PRN ×5 (21:40→22:10)
[2020-12-11] MEDS ORDERED: HYDROcodone/ACETAMIN 5/325 mg TAB ONE (21:54)
[2020-12-11 22:51] LABS: Body Fluid WBC 15101 /mcL
[2020-12-11 22:58] LABS: Body Fluid Appearance Cloudy; Body Fluid Color Yellow
[2020-12-11] MEDS: Enoxaparin 40 MG/0.4 ML SYR SUBCUT SCH (23:05)
[2020-12-11 23:21] LABS: Body Fluid Mono 26 %; Body Fluid Total Cells Counted 200
[2020-12-12] MEDS: HYDROmorphone 1 MG/1 ML SYRINGE IV SLOW PU PRN ×2 (03:02→16:59)
[2020-12-12 05:15] LABS: ABS Basophils 0.1 10^3/ul (0-0.2); ABS Lymphocytes 0.2 10^3/ul (1.0-4.8); ABS Monocytes 0.6 10^3/ul (0-0.8); ABS Neutrophils 7.6 10^3/ul (1.5-7.7); Hematocrit 28 % (42-52); Hemoglobin 9.3 g/dL (14.0-18.0); Lymphocyte % 2.7 %; Mean Corpuscular HGB Conc 33 g/dL (31-36); Mean Corpuscular Hemoglobin 31 pg (27-31); Mean Corpuscular Volume 92 fL (80-94); Platelet Count 323 10^3/uL (150-450); Red Blood Count 3.05 10^6 /uL (4.18-5.48); Red Cell Distribution Width 17 % (10-15); White Blood Count 8.5 10^3/uL (3.5-10.8)
[2020-12-12 05:31] LABS: Albumin 2.4 g/dL (3.2-5.2); Albumin/Globulin Ratio 0.8 (1-3); C Reactive Protein 33.35 mg/L (<8.01); Calcium 8.2 mg/dL (8.6-10.3); EGFR African American 220.1 (>60); EGFR Non-African American 181.9 (>60); Globulin 2.9 g/dL (2-4); Potassium 4.3 mmol/L (3.5-5.0); Total Bilirubin 0.4 mg/dL (0.2-1.0); Total Protein 5.3 g/dL (6.4-8.9)
[2020-12-12 05:38] LABS: Vancomycin Trough 19.9 mcg/mL
[2020-12-12] MEDS: Vancomycin 1,000 MG in NS 0.9% 250 ml 250 ML IVPB SCH (05:44)
[2020-12-12] MEDS ORDERED: Vancomycin Trough Check NOTE FOLLOW UP ONE (06:00)
[2020-12-12] MEDS: Polyethylene Glycol 3350 17 GM PACKET PO SCH (09:18)
[2020-12-12] MEDS: Enoxaparin 40 MG/0.4 ML SYR SUBCUT SCH (09:19)
[2020-12-12] MEDS: CMCS: Olopatadine 0.1% OPHTH (NF) 1 DROP BTL BOTH EYES SCH ×2 (09:24→21:06)
[2020-12-12] MEDS: Nystatin TOP POWDER 15 GM BTL TOPICAL SCH ×3 (09:24→21:50)
[2020-12-12 15:34] LABS: HLA B27 Negative
[2020-12-12] MEDS: NS 0.9% 1000 ml BAG 1,000 ML IV SCH (21:44)
[2020-12-13] MEDS: HYDROmorphone 1 MG/1 ML SYRINGE IV SLOW PU PRN ×2 (00:04→14:49)
[2020-12-13 05:54] LABS: ABS Lymphocytes 0.4 10^3/ul (1.0-4.8); Eosinophil % 0.1 %; Hematocrit 27 % (42-52); Hemoglobin 8.9 g/dL (14.0-18.0); Lymphocyte % 4.9 %; Mean Corpuscular HGB Conc 33 g/dL (31-36); Mean Corpuscular Hemoglobin 30 pg (27-31); Mean Corpuscular Volume 92 fL (80-94); Mean Platelet Volume 7.9 fL (7.4-10.4); Platelet Count 332 10^3/uL (150-450); Red Blood Count 2.94 10^6 /uL (4.18-5.48); Red Cell Distribution Width 17 % (10-15); White Blood Count 7.3 10^3/uL (3.5-10.8)
[2020-12-13] MEDS: Vancomycin 1,500 MG in NS 0.9% 250 ml 250 ML IVPB SCH (06:11)
[2020-12-13 06:17] LABS: C Reactive Protein 21.44 mg/L (<8.01); Calcium 8.1 mg/dL (8.6-10.3); EGFR Non-African American 164.5 (>60); Magnesium 1.9 mg/dL (1.9-2.7); Phosphorus 2.2 mg/dL (2.5-5.0); Potassium 4.2 mmol/L (3.5-5.0)
[2020-12-13 07:31] LABS: Erythrocyte Sed Rate 60 mm/Hr (0-19)
[2020-12-13] MEDS: Nystatin TOP POWDER 15 GM BTL TOPICAL SCH ×3 (09:30→21:34)
[2020-12-13] MEDS: Enoxaparin 40 MG/0.4 ML SYR SUBCUT SCH (09:31)
[2020-12-13] MEDS: CMCS: Olopatadine 0.1% OPHTH (NF) 1 DROP BTL BOTH EYES SCH ×2 (09:32→21:34)
[2020-12-13] MEDS: Polyethylene Glycol 3350 17 GM PACKET PO SCH (09:33)
[2020-12-13] MEDS ORDERED: Perflutren Lipid Microsphere 3 ML VIAL ONE (10:46)
[2020-12-13] MEDS: NS 0.9% 1000 ml BAG 1,000 ML IV SCH (13:57)
[2020-12-13] MEDS: Potassium & Sodium Phos 250 mg = 1 PACKET PO SCH (21:28)
[2020-12-14] MEDS: HYDROmorphone 1 MG/1 ML SYRINGE IV SLOW PU PRN ×2 (03:28→10:11)
[2020-12-14] MEDS: NS 0.9% 1000 ml BAG 1,000 ML IV SCH (05:02)
[2020-12-14 06:16] LABS: C Reactive Protein 15.34 mg/L (<8.01); Calcium 8.1 mg/dL (8.6-10.3); EGFR African American 214.4 (>60); EGFR Non-African American 177.2 (>60); Potassium 4.4 mmol/L (3.5-5.0)
[2020-12-14] MEDS: Vancomycin 1,500 MG in NS 0.9% 250 ml 250 ML IVPB SCH (06:18)
[2020-12-14] MEDS: Potassium & Sodium Phos 250 mg = 1 PACKET PO SCH ×2 (08:30→22:33)
[2020-12-14] MEDS: Polyethylene Glycol 3350 17 GM PACKET PO SCH (08:30)
[2020-12-14] MEDS: Enoxaparin 40 MG/0.4 ML SYR SUBCUT SCH (08:30)
[2020-12-14] MEDS: CMCS: Olopatadine 0.1% OPHTH (NF) 1 DROP BTL BOTH EYES SCH ×2 (10:10→22:34)
[2020-12-14] MEDS: Nystatin TOP POWDER 15 GM BTL TOPICAL SCH ×3 (10:10→22:36)
[2020-12-14] MEDS: HYDROcodone/ACETAMIN 5/325 mg TAB PO PRN (18:08)
[2020-12-15] MEDS: HYDROcodone/ACETAMIN 5/325 mg TAB PO PRN ×4 (01:07→18:04)
[2020-12-15] MEDS: Vancomycin 1,500 MG in NS 0.9% 250 ml 250 ML IVPB SCH (06:30)
[2020-12-15 06:44] LABS: ABS Eosinophils 0.1 10^3/ul (0-0.6); ABS Lymphocytes 0.4 10^3/ul (1.0-4.8); ABS Monocytes 0.9 10^3/ul (0-0.8); ABS Neutrophils 5.7 10^3/ul (1.5-7.7); Eosinophil % 1.1 %; Hematocrit 27 % (42-52); Lymphocyte % 6.1 %; Mean Corpuscular HGB Conc 34 g/dL (31-36); Mean Corpuscular Hemoglobin 31 pg (27-31); Mean Corpuscular Volume 92 fL (80-94); Mean Platelet Volume 7.8 fL (7.4-10.4); Platelet Count 334 10^3/uL (150-450); Red Blood Count 2.91 10^6 /uL (4.18-5.48); Red Cell Distribution Width 17 % (10-15); White Blood Count 7.1 10^3/uL (3.5-10.8)
[2020-12-15 07:03] LABS: C Reactive Protein 13.13 mg/L (<8.01); Calcium 8.1 mg/dL (8.6-10.3); EGFR African American 189.9 (>60); EGFR Non-African American 156.9 (>60)
[2020-12-15] MEDS: Potassium & Sodium Phos 250 mg = 1 PACKET PO SCH ×2 (09:38→20:17)
[2020-12-15] MEDS: Polyethylene Glycol 3350 17 GM PACKET PO SCH (09:39)
[2020-12-15] MEDS: Enoxaparin 40 MG/0.4 ML SYR SUBCUT SCH (09:39)
[2020-12-15] MEDS: CMCS: Olopatadine 0.1% OPHTH (NF) 1 DROP BTL BOTH EYES SCH ×2 (09:40→20:29)
[2020-12-15] MEDS: Nystatin TOP POWDER 15 GM BTL TOPICAL SCH (09:40)
[2020-12-15] MEDS: Triamcinolone 0.5% OINT 1 TUBE TOPICAL SCH ×2 (16:45→20:17)
[2020-12-15] MEDS: Senna TAB 8.6 mg TAB PO PRN (20:16)
[2020-12-15] MEDS: Magnesium Hydroxide LIQ 30 ML UDC PO PRN (20:30)
[2020-12-16] MEDS: HYDROcodone/ACETAMIN 5/325 mg TAB PO PRN ×4 (00:35→23:24)
[2020-12-16] MEDS: Vancomycin 1,500 MG in NS 0.9% 250 ml 250 ML IVPB SCH (06:29)
[2020-12-16 09:54] LABS: Vitamin D Total 25(OH) 18.2 ng/mL (20-50)
[2020-12-16] MEDS: Triamcinolone 0.5% OINT 1 TUBE TOPICAL SCH ×3 (09:55→19:56)
[2020-12-16] MEDS: Potassium & Sodium Phos 250 mg = 1 PACKET PO SCH ×2 (11:00→20:23)
[2020-12-16] MEDS: Enoxaparin 40 MG/0.4 ML SYR SUBCUT SCH (11:01)
[2020-12-16] MEDS: CMCS: Olopatadine 0.1% OPHTH (NF) 1 DROP BTL BOTH EYES SCH ×2 (11:01→20:23)
[2020-12-16] MEDS: Polyethylene Glycol 3350 17 GM PACKET PO SCH (11:01)
[2020-12-16] MEDS: Cholecalciferol (VIT D3) 1,000 unit TAB PO SCH (15:39)
[2020-12-17] MEDS ORDERED: Vancomycin Trough Check NOTE FOLLOW UP ONE (06:00)
[2020-12-17] MEDS: Vancomycin 1,500 MG in NS 0.9% 250 ml 250 ML IVPB SCH (07:58)
[2020-12-17 08:07] VITALS: BP 149/80
[2020-12-17] MEDS: Cholecalciferol (VIT D3) 1,000 unit TAB PO SCH (09:42)
[2020-12-17] MEDS: CMCS: Olopatadine 0.1% OPHTH (NF) 1 DROP BTL BOTH EYES SCH (09:43)
[2020-12-17] MEDS: Enoxaparin 40 MG/0.4 ML SYR SUBCUT SCH (09:44)
[2020-12-17] MEDS: Triamcinolone 0.5% OINT 1 TUBE TOPICAL SCH ×2 (09:44→13:45)
[2020-12-17] MEDS: Polyethylene Glycol 3350 17 GM PACKET PO SCH (09:44)
[2020-12-17] MEDS: Potassium & Sodium Phos 250 mg = 1 PACKET PO SCH (09:44)
[2020-12-17 13:36] LABS: Rapid COVID-19 Molecular Undetected (Undetected)
[2020-12-17] MEDS: HYDROcodone/ACETAMIN 5/325 mg TAB PO PRN (13:46)
== END 2020-12-17 14:00 | DRG 501 ==
LOC: ED 10:31 → SSU 10:31 → SUATTDRO 12-01 08:00 → SSU 12-04 08:55
PROVIDERS: ADMIT Hospitalist; ATTEND Internal Medicine